=== PATIENT | male | born 1950 | race Caucasian/White ===

== ENCOUNTER 2016-08-03 14:29 | Emergency (ER) | payer MEDICAID, MEDICARE ==
[2016-08-03 14:45] VITALS: BP 159/89
--- NOTE | 2016-08-03 14:45 | EDM.PDOC ---
ED HPI Trauma - General Chief Complaint: Upper Extremity Injury/Pain Stated Complaint: LEFT THUMB INFECTION Time Seen by Provider: 08/03/16 14:40 Source: Reports: Patient, Provider History Limitations: Reports: No limitations - History of Present Illness INITIAL COMMENTS - FREE TEXT/NARRATIVE: Patient is 66-year-old male who presents to the ED complaining of pain to the tip of the left thumb. He has an abscess and has been evaluated by PCP at . First evaluated on Saturday07/31/16 by Angi Clifton and placed on bactrim. Dr. Astudillo General Surgeon evaluated it as well and did not recommend draining but oral antibiotics. Minimal Drainage was cultured and to be sensitive to levaquin. Patient was to be changed to this medication today but complained of increased pain to to the left thumb. Thus patient was instructed to come to the E.D. Angi Clifton did speak to me prior to patient being evaluated in the E.D. patient has noticed increased swelling to the thumb. Redness has subsided. Pain is worsen with palpation. At rest pain has not increased. He's noticed no streaking up his arm. Denies any fever/chills, nausea/vomiting, or any additional complaints. He is unaware how this injury occurred. Occurred Where: home Method of Injury: unknown Severity: mild Pain/Injury Location: Reports: other (left thumb) Allergies/ADRs: Allergies No Known Allergies Allergy (Verified 09/22/15 15:30) Review of Systems - Review of Systems Review Of Systems: See Below Constitutional: Denies: chills, diaphoresis, fever Musculoskeletal: Reports: other (Pain to the tip of the left thumb with increased swelling present. Pain is worse with palpation. No pain at rest.) Skin: Reports: erythema (Redness to the left thumb has resolved with no red streaking up his arm.) Neurological: Denies: Numbness, Tingling Trauma Exam - Physical Exam Exam: See Below Exam Limited By: No limitations General Appearance: Reports: alert, WD/WN, no apparent distress Ears: Reports: hearing grossly normal Nose: Reports: normal inspection Throat/Mouth: Reports: Normal voice, No airway compromise Respiratory Exam: Reports: no respiratory distress, no accessory muscle use Cardiovascular: Reports: normal peripheral pulses, regular rate, rhythm Extremities: Reports: other (left thumb: Swelling noted to the tip of the finger with abscess. Mild ecchymosis noted to the abscess borders. mild redness or increased warmth noted. Minimal pain on palpation. No red streaking up his arm. No swelling to his other fingers, hand, wrist, arm.) Neurologic: Reports: no motor/sensory deficits, alert, normal mood/affect, oriented x 3 Course - Vital Signs Last Recorded V/S: Last Vital Signs Temp 97.2 F 08/03/16 14:43 Pulse 79 08/03/16 14:43 Resp 18 08/03/16 14:43 BP 159/89 H 08/03/16 14:43 Pulse Ox 97 08/03/16 14:43 - Orders/Labs/Meds Meds: Medications Discontinued Medications Generic Name Dose Route Start Last Admin Trade Name Gabriel PRN Reason Stop Dose Admin Levofloxacin 500 mg 08/03/16 15:13 08/03/16 15:20 Levaquin PO 08/03/16 15:14 500 mg ONETIME ONE Administration Lidocaine HCl 50 ml 08/03/16 14:47 Xylocaine 1% INJECT 08/03/16 14:48 ONETIME ONE - Re-Assessments/Exams Free Text/Narrative Re-Assessment/Exam: Will drain the abscess to the left thumb to decrease in the pressure the spelled causing worsening pain with palpation. Currently, it appears abscess is improving with no increased redness or increased warmth noted. 08/03/16 14:47 08/03/16 15:14 Drained abscess with 18 g needle. Copious amounts of purulent fluid with blood drained. Pain has improved. Ordered levofloxacin 500mg PO. Patient will be discharged home with instructions. 08/03/16 15:17 reviewed x-ray of the left thumb Departure - Departure Time of Disposition: 15:14 Disposition: Home, Self-Care 01 Condition: good Clinical Impression: Abscess of left thumb Instructions: Abscess, [id number] Referrals: Angi Clifton PA-C [Primary Care Provider] - 08/06/16 Forms: ED Department Discharge Additional Instructions: Take the Levaquin as prescribed by PCP. Followup with PCP this coming Saturday. Call for appointment that morning to be seen later that day. Utilize ibuprofen and Tylenol in alternating fashion for pain. Cleanse site twice daily with soap and water pat dry. Apply heavy coat of antibiotic ointment to the affected thumb. Dressing must be utilized if draining. If you experience increased redness, increased purulent drainage, redness streaking up your arm, fever/chills, or any additional new or worsening symptoms please return back to the ED.
[2016-08-03] MEDS: Lidocaine 1% 50 ML MDV INJECT ONE ×2 (14:55→15:54)
[2016-08-03] MEDS ORDERED: Levofloxacin 250 MG Tab PO ONE (15:13)
== END 2016-08-03 15:24 | disposition home or self-care (01) ==
LOC: JD.ED 14:29
DX: L02.512 Cutaneous abscess of left hand (principal)
CPT/HCPCS: 10160; 99283; A9270; 10060

== ENCOUNTER 2016-12-13 10:16 | Emergency (ER) | payer MEDICAID, MEDICARE ==
[2016-12-13 10:38] VITALS: BP 129/89
--- NOTE | 2016-12-13 11:39 | EDM.PDOC ---
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 He states that he felt confused, although now feels back to normal. He states that he had a similar situation on his bus route last night, and needed the children to instruct him where to go. He denies having a headache, blurry vision, or nausea. He does report feeling dizzy when he stands up, for the past 3-4 months. When asked, the patient reports that today is November. He states that the POTUS is Geovany Taylor. He states that he his in the ER, at [facility]. It is noted that his oxygen saturation is 100% on room air. The patient states that he has a history of bipolar affective disorder, and that he is compliant with his psychiatric medications. They are prescribed by his PCP, Angi Clifton. - Related Data Allergies Allergy/AdvReac Type Severity Reaction Status Date / Time No Known Allergies Allergy Verified 12/13/16 10:35 Home Meds: Home Meds Benztropine [Cogentin] 1 mg PO BID 12/13/16 [History] ClonazePAM [KlonoPIN] 0.25 mg PO BID 12/13/16 [History] Meloxicam 15 mg PO DAILY 12/13/16 [History] Montelukast Sodium [Singulair] 10 mg PO DAILY 12/13/16 [History] atoMOXetine HCl [Strattera] 80 mg PO PCLUNCH 12/13/16 [History] traZODone 50 mg PO BEDTIME 12/13/16 [History] Past Medical History Psychiatric History: Reports: Bipolar Social & Family History - Tobacco Use Smoking Status *Q: Former Smoker Years of Tobacco use: 6 Packs/Tins Daily: 0.3 Month Tobacco Last Used: Quit 2008 - Caffeine Use Caffeine Use: Reports: Coffee, Energy Drinks, Soda, Tea - Alcohol Use Alcohol Use History: Yes Alcohol Use Frequency: Socially - Recreational Drug Use Recreational Drug Use: Yes Recreational Drug Type: Reports: Amphetamines (Speed), LSD (Acid), Marijuana/ Hashish, Mescaline, Psilocybin (Mushrooms) - Living Situation & Occupation Living situation: Reports: Single, Alone 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, 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) ED ROS GENERAL - Review of Systems Review Of Systems: See Below Constitutional: Reports: No Symptoms HEENT: Reports: No Symptoms Respiratory: Reports: No Symptoms Cardiovascular: Reports: No Symptoms Endocrine: Reports: No Symptoms GI/Abdominal: Reports: Diarrhea (occasional) : Reports: No Symptoms Musculoskeletal: Reports: No Symptoms Skin: Reports: No Symptoms Neurological: Reports: No Symptoms Psychiatric: Reports: No Symptoms Hematologic/Lymphatic: Reports: No Symptoms Immunologic: Reports: No Symptoms ED EXAM, GENERAL - Physical Exam Exam: See Below Exam Limited By: No Limitations General Appearance: Alert, WD/WN, No Apparent Distress Eye Exam: Bilateral Eye: Normal Inspection Ears: Normal External Exam, Hearing Grossly Normal Nose: Normal Inspection, No Blood Throat/Mouth: Normal Inspection, Normal Lips, Normal Voice, No Airway Compromise Head: Atraumatic, Normocephalic Neck: Normal Inspection, Full Range of Motion Respiratory/Chest: No Respiratory Distress, Lungs Clear, Normal Breath Sounds, No Accessory Muscle Use Cardiovascular: Normal Peripheral Pulses, Regular Rate, Rhythm, No Gallop, No JVD, No Murmur, No Rub Peripheral Pulses: 4+: Radial (L), Radial (R) GI/Abdominal: Normal Bowel Sounds, Soft, Non-Tender, No Organomegaly, No Distention, No Abnormal Bruit, No Mass (Male) Exam: Deferred Rectal (Males) Exam: Deferred Back Exam: Normal Inspection, Full Range of Motion, NT Extremities: Normal Inspection, Normal Range of Motion, No Pedal Edema, Normal Capillary Refill Neurological: Alert, Oriented, CN II-XII Intact, Normal Cognition, No Motor/ Sensory Deficits Psychiatric: Normal Affect Skin Exam: Warm, Dry, Intact, Normal Color, No Rash Lymphatic: No Adenopathy EKG INTERPRETATION EKG Date: 12/13/16 Time: 11:20 Rhythm: NSR Rate (Beats/Min): 73 [place]: LAD-Left [place] Deviation P-Wave: Present QRS: Normal ST-T: Normal QT: Normal Comparison: NA - No Prior EKG Course - Vital Signs Last Recorded V/S: Last Vital Signs Temp 36.3 C 12/13/16 10:37 Pulse 80 12/13/16 10:37 Resp 18 12/13/16 10:37 BP 129/89 12/13/16 10:37 Pulse Ox 100 12/13/16 10:37 Orthostatic Blood Pressure [ 126/88 Standing] Orthostatic Blood Pressure [ 134/83 Sitting] Orthostatic Blood Pressure [ 135/88 Supine] - Orders/Labs/Meds Orders: Active Orders 24 hr Category Date Time Status EKG Documentation Completion [RC] STAT Care 12/13/16 10:49 Active Orthostatic Vital Signs [RC] STAT Care 12/13/16 10:48 Active Labs: Laboratory Tests 12/13/16 12/13/16 12/13/16 Range/Units 11:00 11:00 11:15 WBC 6.81 (4.23-9.07) K/mm3 RBC 4.33 L (4.63-6.08) M/mm3 Hgb 14.3 (13.7-17.5) gm/L Hct 41.5 (40.1-51.0) % MCV 95.8 H (79.0-92.2) fl MCH 33.0 H (25.7-32.2) pg MCHC 34.5 (32.2-35.5) g/dl RDW Std Deviation 42.2 (35.1-43.9) fL Plt Count 215 (163-337) K/mm3 MPV 9.1 L (9.4-12.3) fl Neutrophils % (Manual) 64 H (40-60) % Band Neutrophils % 0 (0-10) % Lymphocytes % (Manual) 10 L (20-40) % Atypical Lymphs % 15 % Monocytes % (Manual) 8 (2-10) % Eosinophils % (Manual) 3 (0.8-7.0) % Basophils % (Manual) 0 L (0.2-1.2) Platelet Estimate Adequate RBC Morph Comment Normal PT (8.0-13.0) SECONDS INR APTT (22-36) SECONDS D-Dimer, Quantitative (0.19-0.59) mg/L Sodium (136-145) mEq/L Potassium (3.5-5.1) mEq/L Chloride (98-107) mEq/L Carbon Dioxide (21-32) mEq/L Anion Gap (5-15) BUN (7-18) mg/dL Creatinine (0.7-1.3) mg/dL Est Cr Clr Drug Dosing Estimated GFR (MDRD) (>60) mL/min BUN/Creatinine Ratio (14-18) Glucose (80-115) mg/dL Calcium (8.5-10.1) mg/dL Magnesium (1.8-2.4) mg/dl Total Bilirubin (0.2-1.0) mg/dL AST (15-37) U/L ALT (16-63) U/L Alkaline Phosphatase (46-116) U/L Troponin I (0.00-0.056) ng/mL Total Protein (6.4-8.2) g/dl Albumin (3.4-5.0) g/dl Globulin gm/dL Albumin/Globulin Ratio (1-2) TSH 3rd Generation (0.358-3.74) uIU/mL Urine Color Yellow (Yellow) Urine Appearance Clear (Clear) Urine pH 7.0 (5.0-8.0) Ur Specific [place] 1.020 (1.005-1.030) Urine Protein Negative (Negative) Urine Glucose (UA) Negative (Negative) Urine Ketones Negative (Negative) Urine Occult Blood Negative (Negative) Urine Nitrite Negative (Negative) Urine Bilirubin Negative (Negative) Urine Urobilinogen 0.2 (0.2-1.0) Ur Leukocyte Esterase Negative (Negative) Urine RBC Not seen (0-5) /hpf Urine WBC Not seen (0-5) /hpf Ur Epithelial Cells 0-5 (0-5) /hpf Urine Bacteria Not seen (FEW) /hpf Urine Mucus Not seen (FEW) /hpf Urine Opiates Screen Negative (NEGATIVE) Ur Buprenorphine Scrn Negative (NEGATIVE) Ur Oxycodone Screen Negative (NEGATIVE) Urine Methadone Screen Negative (NEGATIVE) Ur Propoxyphene Screen Negative (NEGATIVE) Ur Barbiturates Screen Negative (NEGATIVE) Ur Tricyclics Screen Negative (NEGATIVE) Ur Phencyclidine Scrn Negative (NEGATIVE) Ur Amphetamine Screen Negative (NEGATIVE) U Methamphetamines Scrn Negative (NEGATIVE) U Benzodiazepines Scrn Negative (NEGATIVE) U Cocaine Metab Screen Negative (NEGATIVE) U Marijuana (THC) Screen Negative (NEGATIVE) Ethyl Alcohol (0.00) gm% 12/13/16 12/13/16 Range/Units 11:15 11:15 WBC (4.23-9.07) K/mm3 RBC (4.63-6.08) M/mm3 Hgb (13.7-17.5) gm/L Hct (40.1-51.0) % MCV (79.0-92.2) fl MCH (25.7-32.2) pg MCHC (32.2-35.5) g/dl RDW Std Deviation (35.1-43.9) fL Plt Count (163-337) K/mm3 MPV (9.4-12.3) fl Neutrophils % (Manual) (40-60) % Band Neutrophils % (0-10) % Lymphocytes % (Manual) (20-40) % Atypical Lymphs % % Monocytes % (Manual) (2-10) % Eosinophils % (Manual) (0.8-7.0) % Basophils % (Manual) (0.2-1.2) Platelet Estimate RBC Morph Comment PT 10.7 (8.0-13.0) SECONDS INR 0.98 APTT 27 (22-36) SECONDS D-Dimer, Quantitative 0.24 (0.19-0.59) mg/L Sodium 141 (136-145) mEq/L Potassium 4.4 (3.5-5.1) mEq/L Chloride 106 (98-107) mEq/L Carbon Dioxide 31 (21-32) mEq/L Anion Gap 8.4 (5-15) BUN 18 (7-18) mg/dL Creatinine 1.3 (0.7-1.3) mg/dL Est Cr Clr Drug Dosing TNP Estimated GFR (MDRD) 55 (>60) mL/min BUN/Creatinine Ratio 13.8 L (14-18) Glucose 81 (80-115) mg/dL Calcium 9.2 (8.5-10.1) mg/dL Magnesium 2.3 (1.8-2.4) mg/dl Total Bilirubin 0.6 (0.2-1.0) mg/dL AST 21 (15-37) U/L ALT 19 (16-63) U/L Alkaline Phosphatase 70 (46-116) U/L Troponin I < 0.017 (0.00-0.056) ng/mL Total Protein 6.8 (6.4-8.2) g/dl Albumin 4.0 (3.4-5.0) g/dl Globulin 2.8 gm/dL Albumin/Globulin Ratio 1.4 (1-2) TSH 3rd Generation 1.954 (0.358-3.74) uIU/mL Urine Color (Yellow) Urine Appearance (Clear) Urine pH (5.0-8.0) Ur Specific [place] (1.005-1.030) Urine Protein (Negative) Urine Glucose (UA) (Negative) Urine Ketones (Negative) Urine Occult Blood (Negative) Urine Nitrite (Negative) Urine Bilirubin (Negative) Urine Urobilinogen (0.2-1.0) Ur Leukocyte Esterase (Negative) Urine RBC (0-5) /hpf Urine WBC (0-5) /hpf Ur Epithelial Cells (0-5) /hpf Urine Bacteria (FEW) /hpf Urine Mucus (FEW) /hpf Urine Opiates Screen (NEGATIVE) Ur Buprenorphine Scrn (NEGATIVE) Ur Oxycodone Screen (NEGATIVE) Urine Methadone Screen (NEGATIVE) Ur Propoxyphene Screen (NEGATIVE) Ur Barbiturates Screen (NEGATIVE) Ur Tricyclics Screen (NEGATIVE) Ur Phencyclidine Scrn (NEGATIVE) Ur Amphetamine Screen (NEGATIVE) U Methamphetamines Scrn (NEGATIVE) U Benzodiazepines Scrn (NEGATIVE) U Cocaine Metab Screen (NEGATIVE) U Marijuana (THC) Screen (NEGATIVE) Ethyl Alcohol 0.00 (0.00) gm% - Re-Assessments/Exams Free Text/Narrative Re-Assessment/Exam: 12/13/16 11:18 Two-view chest radiograph appears to be grossly normal. Cardiac silhouette is within normal limits. No pulmonary vascular congestion. No pleural effusions. No focal infiltrate. No pneumothorax. Formal read per the Radiologist pending. 12/13/16 11:39 The patient is not orthostatic. 12/13/16 13:23 CT of the head without contrast is read by Dr. Gudino as: 1. Minimal sinus findings which are felt to be incidental. 2. Nothing acute is appreciated on noncontrast head CT study. 12/13/16 13:25 Today's workup is unremarkable, and does not explain his symptoms. I do not find any metabolic causes for his confusion. I suspect that some of the patient' s confusion reflects his baseline, however, his symptoms may be related to his psychiatric medications. I believe he may safely be discharged home, with the recommendation to follow-up with the prescriber of his psychiatric medications, Angi Clifton. Departure - Departure Time of Disposition: 13:29 Disposition: Home, Self-Care 01 Condition: Good Clinical Impression: Drug-induced confusion - Discharge Information Referrals: Angi Clifton PA-C [Primary Care Provider] - Forms: ED Department Discharge Additional Instructions: You were seen in the emergency room for confusion. Workup in the ER included blood work, a urinalysis, a urine drug screen, an ECG , a chest x-ray, a CT scan of your head, and positional blood pressure checks. Your entire workup was unremarkable, and does not explain the cause of your confusion. Your confusion is MOST LIKELY related to your psychiatric medications. We recommend you follow-up with your PCP, Angi Clifton, for medication adjustment. We do not recommend you return to work until your symptoms have resolved. If any other problems, please do not hesitate to return to the ER. - My Orders Last 24 Hours: My Active Orders 12/13/16 10:48 Orthostatic Vital Signs [RC] STAT 12/13/16 10:49 EKG Documentation Completion [RC] STAT - Assessment/Plan Last 24 Hours: My Active Orders 12/13/16 10:48 Orthostatic Vital Signs [RC] STAT 12/13/16 10:49 EKG Documentation Completion [RC] STAT
--- NOTE | 2016-12-13 13:05 | CT ---
Head CT Technique: Multiple axial sections through the brain were obtained. Intravenous contrast was not utilized. Comparison: Previous head CT exam of 01/22/12. Findings: Ventricles along with basal cisterns and sulci over the convexities are within normal limits for the patient's age. No abnormal parenchymal densities are seen. No evidence of intracranial hemorrhage. Small basal ganglia calcification is noted on the right side. No midline shift or mass effect is seen. Bone window settings were reviewed which shows slight mucosal thickening within the frontal and ethmoid sinuses. No acute calvarial abnormality is seen. Impression: 1. Minimal sinus findings which are felt to be incidental. 2. Nothing acute is appreciated on noncontrast head CT study. Diagnostic code #2
--- NOTE | 2016-12-13 14:48 | CR ---
Chest: Two views of the chest were obtained. Comparison: Previous chest x-ray of 09/22/15. Heart size and mediastinum are within normal limits. Lungs are clear. Bony structures show mild degenerative change within the mid to lower thoracic spine. Impression: 1. Incidental findings. Nothing acute is appreciated on two-view chest x-ray. Diagnostic code #2
== END 2016-12-13 13:40 | disposition home or self-care (01) ==
LOC: JD.ED 10:16
DX: F19.921 Other psychoactive substance use, unspecified with intoxication with delirium (principal); F31.9 Bipolar disorder, unspecified; Z79.899 Other long term (current) drug therapy; Z87.891 Personal history of nicotine dependence
CPT/HCPCS: 36415; 70450; 71020; 80053; 80306; 81001; 83735; 84443; 84484; 85025; 85379; 85610; 85730; 93005; 99285; G0480; 99284

== ENCOUNTER 2020-12-22 13:45 | Emergency (ER) | payer OTHER, MEDICARE, MEDICAID ==
[2020-12-22 14:15] VITALS: BP 113/75; PULSE 102
--- NOTE | 2020-12-22 14:18 | EDM.PDOC ---
ED HPI GENERAL MEDICAL PROBLEM - General Chief Complaint: General Stated Complaint: [facility] Time Seen by Provider: 12/22/20 14:18 - History of Present Illness INITIAL COMMENTS - FREE TEXT/NARRATIVE: 70-year-old male sent in by the longterm with suspected hypoxia he is Covid positive. Patient was tested for Covid found to be positive. They noticed on routine monitoring that his O2 saturations would drop into the upper 80s. [facility] for further evaluation. At this time the patient will not answer any questions. According to the patient's sister who is the power of compliance attorney the patient has spells like this where he just will not answer questions. The patient does not appear to have any weakness deficits. While here in the emergency room the patient saturation has remained in the low 90s. - Related Data Allergies Allergy/AdvReac Type Severity Reaction Status Date / Time No Known Allergies Allergy Verified 12/22/20 14:15 Home Meds: Home Meds ClonazePAM [KlonoPIN] 0.25 mg PO BID 12/13/16 [History] Meloxicam 15 mg PO DAILY 12/13/16 [History] Acetaminophen 650 mg PO ASDIRECTED PRN 12/22/20 [History] Chlorthalidone 25 mg PO DAILY 12/22/20 [History] Cholecalciferol (Vitamin D3) [Vitamin D3] 25 mcg PO DAILY 12/22/20 [History] Clotrimazole [Clotrimazole 1%] 1 applic TOP BID 12/22/20 [History] Docusate Sodium 100 mg PO BID 12/22/20 [History] Escitalopram [Lexapro] 20 mg PO DAILY 12/22/20 [History] Magnesium Hydroxide [Milk of Magnesia] 2,400 mg PO ASDIRECTED PRN 12/22/20 [History] Memantine HCl [Namenda] 10 mg PO BID 12/22/20 [History] Omeprazole 20 mg PO ACBREAKFAST 12/22/20 [History] buPROPion [buPROPion XL] 150 mg PO DAILY 12/22/20 [History] polyethylene glycoL 3350 [Miralax] 17 gm PO DAILY 12/22/20 [History] risperiDONE [RisperiDAL] 0.25 mg PO DAILY 12/22/20 [History] risperiDONE [RisperiDAL] 1 mg PO BEDTIME 12/22/20 [History] Past Medical History Psychiatric History: Reports: Bipolar Other Psychiatric History: manic depression Social & Family History - Caffeine Use Caffeine Use: Reports: Coffee, Energy Drinks, Soda, Tea - Living Situation & Occupation Living situation: Reports: Single, Alone 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 Exam Limited By: Other (Patient will not answer questions, at times this is a normal state for him.) General Appearance: Alert, No Apparent Distress Eye Exam: Bilateral Eye: Normal Inspection, PERRL Ears: Normal External Exam, Other (Both canals obstructed by cerumen) Nose: Normal Inspection, Normal Mucosa Throat/Mouth: Other (Not fully visualized mucous membranes appear moist the patient struggled with trying to open his mouth) Head: Atraumatic, Normocephalic Neck: Normal Inspection, Supple, Non-Tender, Full Range of Motion. No: Lymphadenopathy (L), Lymphadenopathy (R) Respiratory/Chest: No Respiratory Distress, Lungs Clear, Normal Breath Sounds Cardiovascular: Regular Rate, Rhythm, No Edema, No Murmur GI/Abdominal: Normal Bowel Sounds, Soft, Non-Tender Back Exam: Normal Inspection. No: CVA Tenderness (L), CVA Tenderness (R) Extremities: Normal Inspection, No Pedal Edema #1 Interpretation EKG Date: 12/22/20 Rhythm: Other (Sinus tachycardia) Rate (Beats/Min): 101 Hiram: LAD-Left Hiram Deviation P-Wave: Present QRS: Other (Intraventricular conduction delay) ST-T: Normal QT: Normal Comparison: No Change (No significant change from December 13, 2016) EKG Interpretation Comments: Abnormal EKG Course - Vital Signs Last Recorded V/S: Last Vital Signs Temp 36.8 C 12/22/20 14:10 Pulse 102 H 12/22/20 14:10 Resp 18 12/22/20 14:10 BP 113/75 12/22/20 14:10 Pulse Ox 92 L 12/22/20 14:10 - Orders/Labs/Meds Orders: Active Orders 24 hr Category Date Time Status Vital Signs [RC] Q15M Care 12/22/20 16:24 Active EPINEPHrine [Adrenalin] Med 12/22/20 16:24 Active 0.3 mg IM ONETIME PRN Famotidine [Pepcid] Med 12/22/20 16:24 Active 20 mg IVPUSH ONETIME PRN Sodium Chloride 0.9% [Saline Flush] Med 12/22/20 16:30 Active 30 ml FLUSH ASDIRECTED diphenhydrAMINE [Benadryl] Med 12/22/20 16:24 Active 50 mg IVPUSH ONETIME PRN methylPREDNISolone Sod Succ [Solu-MEDROL] Med 12/22/20 16:24 Active 125 mg IVPUSH ONETIME PRN Medication Orders Diphenhydramine HCl (Diphenhydramine 50 Mg/Ml Sdv) 50 mg IVPUSH ONETIME PRN PRN Reason: hypersensitivity reaction Epinephrine HCl (Epinephrine 1 Mg/Ml Sdv) 0.3 mg IM ONETIME PRN PRN Reason: hypersensitivity reaction Famotidine (Famotidine 20 Mg/2 Ml Sdv) 20 mg IVPUSH ONETIME PRN PRN Reason: hypersensitivity reaction Methylprednisolone Sodium Succinate (Methylprednisolone Sodium Succinate 125 Mg/2 Ml Sdv) 125 mg IVPUSH ONETIME PRN PRN Reason: hypersensitivity reaction Sodium Chloride (Sodium Chloride 0.9% 10 Ml Syringe) 30 ml FLUSH ASDIRECTED [facility] Labs: Laboratory Tests 12/22/20 12/22/20 12/22/20 Range/Units 15:08 15:08 15:08 WBC 6.05 (4.23-9.07) K/mm3 RBC 4.35 L (4.63-6.08) M/mm3 Hgb 14.3 D (13.7-17.5) gm/dl Hct 41.7 (40.1-51.0) % MCV 95.9 H (79.0-92.2) fl MCH 32.9 H (25.7-32.2) pg MCHC 34.3 (32.2-35.5) g/dl RDW Std Deviation 43.7 (35.1-43.9) fL Plt Count 184 (163-337) K/mm3 MPV 10.0 (9.4-12.3) fl Neutrophils % (Manual) 84 H (40-60) % Band Neutrophils % 0 (0-10) % Lymphocytes % (Manual) 9 L (20-40) % Atypical Lymphs % 0 % Monocytes % (Manual) 6 (2-10) % Eosinophils % (Manual) 0 L (0.8-7.0) % Basophils % (Manual) 1 (0.2-1.2) Platelet Estimate Adequate RBC Morph Comment Normal D-Dimer, Quantitative 0.83 H (0.19-0.50) mg/L Sodium 140 (136-145) mEq/L Potassium 3.0 L (3.5-5.1) mEq/L Chloride 103 (98-107) mEq/L Carbon Dioxide 30 (21-32) mEq/L Anion Gap 10.0 (5-15) BUN 19 H (7-18) mg/dL Creatinine 1.3 (0.7-1.3) mg/dL Est Cr Clr Drug Dosing 50.14 mL/min Estimated GFR (MDRD) 55 (>60) mL/min BUN/Creatinine Ratio 14.6 (14-18) Glucose 103 H (70-99) mg/dL Calcium 8.9 (8.5-10.1) mg/dL Total Bilirubin 0.4 (0.2-1.0) mg/dL AST 23 (15-37) U/L ALT 22 (16-63) U/L Alkaline Phosphatase 66 (46-116) U/L Lactate Dehydrogenase 189 (85-227) U/L Troponin I < 0.017 (0.00-0.056) ng/mL C-Reactive Protein 1.8 H* (<1.0) mg/dL Total Protein 6.7 (6.4-8.2) g/dl Albumin 3.5 (3.4-5.0) g/dl Globulin 3.2 gm/dL Albumin/Globulin Ratio 1.1 (1-2) Meds: Medications Generic Name Dose Route Start Last Admin Trade Name Freq PRN Reason Stop Dose Admin Diphenhydramine HCl 50 mg 12/22/20 16:24 Diphenhydramine 50 Mg/Ml Sdv IVPUSH ONETIME PRN hypersensitivity reaction Epinephrine HCl 0.3 mg 12/22/20 16:24 Epinephrine 1 Mg/Ml Sdv IM ONETIME PRN hypersensitivity reaction Famotidine 20 mg 12/22/20 16:24 Famotidine 20 Mg/2 Ml Sdv IVPUSH ONETIME PRN hypersensitivity reaction Methylprednisolone Sodium Succinate 125 mg 12/22/20 16:24 Methylprednisolone Sodium Succinate 125 Mg/2 Ml Sdv IVPUSH ONETIME PRN hypersensitivity reaction Sodium Chloride 30 ml 12/22/20 16:30 Sodium Chloride 0.9% 10 Ml Syringe FLUSH ASDIRECTED GIFTY Discontinued Medications Generic Name Dose Route Start Last Admin Trade Name Gabriel PRN Reason Stop Dose Admin CASIRIVIMAB/IMDEVIMAB 10 ml/ 110 mls @ 220 mls/hr 12/22/20 16:24 12/22/20 16:43 Sodium Chloride IV 12/22/20 16:53 220 mls/hr ONETIME ONE Administration - Re-Assessments/Exams Free Text/Narrative Re-Assessment/Exam: 12/22/20 16:05 The patient has no acute changes in the chest x-ray. C-reactive protein is slightly elevated at 1.8 D-dimer is elevated 0.83 potassium is 3.0 I discussed the situation with the patient's POA, his sister over the phone. I provided information about REGEN-COV treatment. I discussed the Patient and Caregiver EUA REGEN-COV Fact Sheet. I stated the drug has been approved by an emergency use authorization (EUA} process and has not fully been FDA reviewed or approved. The patient meets the EUA requirements. I discussed there are other potential treatment options that are currently not FDA approved to treat COVID 19. Offered opportunity to ask questions and all questions were answered. The POA voiced understanding and agreed to proceed with treatment. 12/22/20 18:36 Tolerated the Regeneron without difficulty will be discharged back to the longterm. He has maintained saturations above 90% while here in the emergency department Without the aid of supplemental oxygen Departure - Departure Time of Disposition: 18:40 Disposition: DC/Tfer to [facility] Clinical Impression: COVID-19 - Discharge Information Referrals: Todd Perdue MD [Primary Care Provider] - Forms: ED Department Discharge Additional Instructions: Return to the emergency room with any questions problems or worsening symptoms. Sepsis Event Note (ED) - Evaluation Sepsis Screening Result: No Definite Risk - Focused Exam Vital Signs: Vital Signs Temp Pulse Resp BP Pulse Ox 12/22/20 14:10 36.8 C 102 H 18 113/75 92 L - My Orders Last 24 Hours: My Active Orders 12/22/20 16:24 Vital Signs [RC] Q15M EPINEPHrine [Adrenalin] 0.3 mg IM ONETIME PRN Famotidine [Pepcid] 20 mg IVPUSH ONETIME PRN diphenhydrAMINE [Benadryl] 50 mg IVPUSH ONETIME PRN methylPREDNISolone Sod Succ [Solu-MEDROL] 125 mg IVPUSH ONETIME PRN 12/22/20 16:30 Sodium Chloride 0.9% [Saline Flush] 30 ml FLUSH ASDIRECTED - Assessment/Plan Last 24 Hours: My Active Orders 12/22/20 16:24 Vital Signs [RC] Q15M EPINEPHrine [Adrenalin] 0.3 mg IM ONETIME PRN Famotidine [Pepcid] 20 mg IVPUSH ONETIME PRN diphenhydrAMINE [Benadryl] 50 mg IVPUSH ONETIME PRN methylPREDNISolone Sod Succ [Solu-MEDROL] 125 mg IVPUSH ONETIME PRN 12/22/20 16:30 Sodium Chloride 0.9% [Saline Flush] 30 ml FLUSH ASDIRECTED
--- NOTE | 2020-12-22 15:15 | CT ---
Head CT Technique: Multiple axial sections through the brain were obtained. Intravenous contrast was not utilized. Study has been performed without intravenous contrast. Comparison: Prior head CT study of 12/13/16 and MRI brain of 05/22/17. Findings: Ventricles are somewhat dilated and more prominent than on previous exam. Sulci over the convexities are also mildly prominent. No abnormal parenchymal densities are seen. No evidence of intracranial hemorrhage is seen. No midline shift or mass-effect is appreciated. Bone window settings were reviewed. Mild scattered areas of mucosal thickening are seen within the ethmoid sinuses and sphenoid sinus. Mastoid sinuses are clear. No acute calvarial abnormality is appreciated. Impression: 1. Mild increasing atrophy from previous exams. 2. Mild sinus findings which are most likely chronic. 3. No acute intracranial abnormality is appreciated. Diagnostic code #2
[2020-12-22] MEDS ORDERED: Famotidine 20 MG/2 ML SDV IVPUSH ONE (15:45)
--- NOTE | 2020-12-22 15:49 | CR ---
Chest: Portable view of the chest was obtained. Comparison: Prior chest x-ray at 12/13/16. Heart size and mediastinum are within normal limits. Slight scarring is seen above the left hemidiaphragm. Lungs otherwise are clear no acute parenchymal change. Mild degenerative change is seen within the spine with slight scoliosis. Impression: 1. Findings as noted above. 2. Nothing acute is appreciated. Diagnostic code #2
[2020-12-22] MEDS ORDERED: Famotidine 20 MG/2 ML SDV IVPUSH PRN (16:24)
[2020-12-22] MEDS ORDERED: EPINEPHrine 1 MG/ML SDV IM PRN (16:24)
[2020-12-22] MEDS ORDERED: methylPREDNISolone Sodium Succinate 125 MG/2 ML SDV IVPUSH PRN (16:24)
[2020-12-22] MEDS ORDERED: diphenhydrAMINE 50 MG/ML SDV IVPUSH PRN (16:24)
[2020-12-22] MEDS ORDERED: Sodium Chloride 0.9% 10 ML Syringe FLUSH SCH (16:30)
[2020-12-22] MEDS ORDERED: Potassium Chloride 20 MEQ Tab.ER PO ONE (18:38)
== END 2020-12-22 19:39 ==
LOC: JD.ED 13:45
DX: U07.1 COVID-19 (principal); R94.31 Abnormal electrocardiogram [ECG] [EKG]
CPT/HCPCS: 36415; 70450; 71045; 80053; 83615; 84484; 85007; 85027; 85379; 86140; 93005; 99285; M0243; Q0243; 93010; 99284

== ENCOUNTER 2021-01-01 22:58 | Inpatient (IN) | payer OTHER, MEDICARE, MEDICAID ==
[2021-01-01] MEDS ORDERED: Sodium Chloride 0.9% 10 ML Syringe FLUSH PRN (23:12)
[2021-01-01] MEDS ORDERED: Dexamethasone 4 MG/ML SDV IVPUSH ONE (23:13)
[2021-01-01] MEDS ORDERED: Albuterol/Ipratropium 3.0-0.5 MG/3 ML Neb Soln NEB ONE (23:14)
[2021-01-01] MEDS ORDERED: Sodium Chloride 0.9% 1,000 ML IV SCH (23:15)
[2021-01-02] MEDS ORDERED: Sodium Chloride 0.9% 1,000 ML IV ONE ×2 (00:03→01:11)
[2021-01-02] MEDS ORDERED: cefTRIAXone 2 GM in Sodium Chloride 0.9% 100 ML IV ONE (00:57)
[2021-01-02] MEDS ORDERED: Lactated Ringers 1,000 ML IV ONE (01:11)
--- NOTE | 2021-01-02 02:33 | EDM.PDOC ---
ED HPI GENERAL MEDICAL PROBLEM - General Chief Complaint: Respiratory Problem Stated Complaint: [facility] Time Seen by Provider: 01/01/21 23:01 Source of Information: Reports: EMS, Family, Long-Term Records History Limitations: Reports: Altered Mental Status - History of Present Illness INITIAL COMMENTS - FREE TEXT/NARRATIVE: The patient presents by [facility] for [facility]. The patient is a resident there because of dementia. He got COVID 19 ten days ago. He was seen here and given regeneron. He was doing good for a few days and he started to decline. He was not talking and he had trouble breathing. He also was breathing fast. He is minimally responsive at baseline but now he will not respond to verbal stimuli. He will localize to pain. He has been diaphoretic. His oxygen saturations have been low at 88% and he is breathing fast. He is normally on 2L by [place] and they had to go up to 5L by [place]. He is a full code. Onset: Gradual Duration: Day(s): - Related Data Allergies Allergy/AdvReac Type Severity Reaction Status Date / Time No Known Allergies Allergy Verified 01/01/21 23:14 Home Meds: Home Meds ClonazePAM [KlonoPIN] 0.25 mg PO BID 12/13/16 [History] Meloxicam 15 mg PO DAILY 12/13/16 [History] Acetaminophen 650 mg PO ASDIRECTED PRN 12/22/20 [History] Chlorthalidone 25 mg PO DAILY 12/22/20 [History] Cholecalciferol (Vitamin D3) [Vitamin D3] 25 mcg PO DAILY 12/22/20 [History] Clotrimazole [Clotrimazole 1%] 1 applic TOP BID 12/22/20 [History] Docusate Sodium 100 mg PO BID 12/22/20 [History] Escitalopram [Lexapro] 20 mg PO DAILY 12/22/20 [History] Magnesium Hydroxide [Milk of Magnesia] 2,400 mg PO ASDIRECTED PRN 12/22/20 [History] Memantine HCl [Namenda] 10 mg PO BID 12/22/20 [History] Omeprazole 20 mg PO ACBREAKFAST 12/22/20 [History] buPROPion [buPROPion XL] 150 mg PO DAILY 12/22/20 [History] polyethylene glycoL 3350 [Miralax] 17 gm PO DAILY 12/22/20 [History] risperiDONE [RisperiDAL] 0.25 mg PO DAILY 12/22/20 [History] risperiDONE [RisperiDAL] 1 mg PO BEDTIME 12/22/20 [History] Past Medical History Cardiovascular History: Reports: PVD Gastrointestinal History: Reports: GERD Genitourinary History: Reports: Chronic Renal Insuffiency, Urinary Incontinence Neurological History: Reports: Alzheimers Disease Psychiatric History: Reports: Bipolar Other Psychiatric History: manic depression - Infectious Disease History Infectious Disease History: Reports: Novel Coronavirus Social & Family History - Tobacco Use Tobacco Use Status *Q: Unknown Ever Used Tobacco Second Hand Smoke Exposure: No - Caffeine Use Caffeine Use: Reports: Coffee, Energy Drinks, Soda, Tea - Recreational Drug Use Recreational Drug Use: No - Living Situation & Occupation Living situation: Reports: Single, Alone 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, 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) ED ROS GENERAL - Review of Systems Review Of Systems: Unable To Obtain Reason Not Obtained: Patient not responding ED EXAM, GENERAL - Physical Exam Exam: See Below Exam Limited By: Altered Mental Status General Appearance: Other (patient would localize to pain) Ears: Normal External Exam Nose: Normal Inspection Head: Atraumatic, Normocephalic Neck: Normal Inspection Respiratory/Chest: No Respiratory Distress, Lungs Clear, Normal Breath Sounds Cardiovascular: No Edema, No Murmur, Tachycardia GI/Abdominal: Soft, Non-Tender, No Organomegaly, No Mass Back Exam: Normal Inspection Extremities: Normal Inspection Course - Vital Signs Last Recorded V/S: Last Vital Signs Temp 99 F 01/01/21 23:09 Pulse 114 H 01/02/21 04:30 Resp 32 H 01/02/21 04:30 BP 128/74 01/02/21 04:30 Pulse Ox 95 01/02/21 04:30 - Orders/Labs/Meds Orders: Active Orders 24 hr Category Date Time Status Cardiac Monitoring [RC] . DIRECTED Care 01/01/21 23:12 Active Oxygen Therapy [RC] PRN Care 01/01/21 23:12 Active Peripheral IV Care [RC] . DIRECTED Care 01/01/21 23:12 Active RT Aerosol Therapy [RC] ASDIRECTED Care 01/01/21 23:14 Active Chest 1V Frontal [CR] Stat Exams 01/01/21 23:13 Taken BLOOD CULTURE [MREF] Stat Lab 01/01/21 23:25 Received BLOOD CULTURE [MREF] Stat Lab 01/01/21 23:40 Received CULTURE URINE [MREF] Stat Lab 01/02/21 00:15 Received Sodium Chloride 0.9% [Normal Saline] 1,000 ml Med 01/01/21 23:15 Active IV ASDIRECTED Sodium Chloride 0.9% [Saline Flush] Med 01/01/21 23:12 Active 10 ml FLUSH ASDIRECTED PRN Blood Culture x2 Reflex Set [OM.PC] Stat Oth 01/01/21 23:13 Ordered Peripheral IV Insertion Adult [OM.PC] Stat Ot 01/01/21 23:12 Ordered Medication Orders Sodium Chloride (Normal Saline) 1,000 mls @ 125 mls/hr IV ASDIRECTED GIFTY Last Admin: 01/01/21 23:56 Dose: 125 mls/hr Documented by: KEISHA Sodium Chloride (Sodium Chloride 0.9% 10 Ml Syringe) 10 ml FLUSH ASDIRECTED PRN PRN Reason: Keep Vein Open Last Admin: 01/01/21 23:57 Dose: 10 ml Documented by: KEISHA Labs: Laboratory Tests 01/01/21 01/01/21 01/01/21 Range/Units 23:00 23:00 23:00 WBC 33.56 H (4.23-9.07) K/mm3 RBC 5.37 (4.63-6.08) M/mm3 Hgb 17.4 D (13.7-17.5) gm/dl Hct 54.3 H (40.1-51.0) % MCV 101.1 H D (79.0-92.2) fl MCH 32.4 H (25.7-32.2) pg MCHC 32.0 L (32.2-35.5) g/dl RDW Std Deviation 50.9 H (35.1-43.9) fL Plt Count 449 H D (163-337) K/mm3 MPV 11.3 (9.4-12.3) fl Neut % (Auto) 84.3 H (34.0-67.9) % Lymph % (Auto) 7.4 L (21.8-53.1) % [place] % (Auto) 7.5 (5.3-12.2) % Eos % (Auto) 0 L (0.8-7.0) Baso % (Auto) 0.1 (0.1-1.2) % Neut # (Auto) 28.30 H (1.78-5.38) K/mm3 Lymph # (Auto) 2.48 (1.32-3.57) K/mm3 [place] # (Auto) 2.52 H (0.30-0.82) K/mm3 Eos # (Auto) 0.00 L (0.04-0.54) K/mm3 Baso # (Auto) 0.04 (0.01-0.08) K/mm3 Manual Slide Review Abnormal smear D-Dimer, Quantitative 1.83 H (0.19-0.50) mg/L Sodium 150 H D (136-145) mEq/L Potassium 3.1 L (3.5-5.1) mEq/L Chloride 108 H (98-107) mEq/L Carbon Dioxide 34 H (21-32) mEq/L Anion Gap 11.1 (5-15) BUN 43 H (7-18) mg/dL Creatinine 2.0 H (0.7-1.3) mg/dL Est Cr Clr Drug Dosing 32.59 mL/min Estimated GFR (MDRD) 33 (>60) mL/min BUN/Creatinine Ratio 21.5 H (14-18) Glucose 180 H (70-99) mg/dL Lactic Acid (0.4-2.0) mmol/L Calcium 9.5 (8.5-10.1) mg/dL Total Bilirubin 1.1 H (0.2-1.0) mg/dL AST 29 (15-37) U/L ALT 41 (16-63) U/L Alkaline Phosphatase 76 (46-116) U/L C-Reactive Protein 5.5 H* (<1.0) mg/dL Total Protein 8.0 (6.4-8.2) g/dl Albumin 3.5 (3.4-5.0) g/dl Globulin 4.5 gm/dL Albumin/Globulin Ratio 0.8 L (1-2) Urine Color (Yellow) Urine Appearance (Clear) Urine pH (5.0-8.0) Ur Specific [place] (1.005-1.030) Urine Protein (Negative) Urine Glucose (UA) (Negative) Urine Ketones (Negative) Urine Occult Blood (Negative) Urine Nitrite (Negative) Urine Bilirubin (Negative) Urine Urobilinogen (0.2-1.0) Ur Leukocyte Esterase (Negative) U Hyaline Cast (Auto) (0-5) /lpf Urine RBC (0-5) /hpf Urine WBC (0-5) /hpf Ur Epithelial Cells (0-5) /hpf Urine Bacteria (FEW) /hpf Coarse Granular Casts (0-5) /hpf Urine Mucus (FEW) /hpf 01/01/21 01/02/21 01/02/21 Range/Units 23:00 00:15 02:51 WBC (4.23-9.07) K/mm3 RBC (4.63-6.08) M/mm3 Hgb (13.7-17.5) gm/dl Hct (40.1-51.0) % MCV (79.0-92.2) fl MCH (25.7-32.2) pg MCHC (32.2-35.5) g/dl RDW Std Deviation (35.1-43.9) fL Plt Count (163-337) K/mm3 MPV (9.4-12.3) fl Neut % (Auto) (34.0-67.9) % Lymph % (Auto) (21.8-53.1) % [place] % (Auto) (5.3-12.2) % Eos % (Auto) (0.8-7.0) Baso % (Auto) (0.1-1.2) % Neut # (Auto) (1.78-5.38) K/mm3 Lymph # (Auto) (1.32-3.57) K/mm3 [place] # (Auto) (0.30-0.82) K/mm3 Eos # (Auto) (0.04-0.54) K/mm3 Baso # (Auto) (0.01-0.08) K/mm3 Manual Slide Review D-Dimer, Quantitative (0.19-0.50) mg/L Sodium (136-145) mEq/L Potassium (3.5-5.1) mEq/L Chloride (98-107) mEq/L Carbon Dioxide (21-32) mEq/L Anion Gap (5-15) BUN (7-18) mg/dL Creatinine (0.7-1.3) mg/dL Est Cr Clr Drug Dosing mL/min Estimated GFR (MDRD) (>60) mL/min BUN/Creatinine Ratio (14-18) Glucose (70-99) mg/dL Lactic Acid 2.4 H* 1.1 (0.4-2.0) mmol/L Calcium (8.5-10.1) mg/dL Total Bilirubin (0.2-1.0) mg/dL AST (15-37) U/L ALT (16-63) U/L Alkaline Phosphatase (46-116) U/L C-Reactive Protein (<1.0) mg/dL Total Protein (6.4-8.2) g/dl Albumin (3.4-5.0) g/dl Globulin gm/dL Albumin/Globulin Ratio (1-2) Urine Color Dark yellow (Yellow) Urine Appearance Slt cloudy H (Clear) Urine pH 5.5 (5.0-8.0) Ur Specific [place] > or = 1.030 (1.005-1.030) Urine Protein 3+ H (Negative) Urine Glucose (UA) Trace H (Negative) Urine Ketones Trace H (Negative) Urine Occult Blood 3+ H (Negative) Urine Nitrite Negative (Negative) Urine Bilirubin 3+ H (Negative) Urine Urobilinogen >=8.0 H (0.2-1.0) Ur Leukocyte Esterase Negative (Negative) U Hyaline Cast (Auto) 0-5 (0-5) /lpf Urine RBC 5-10 H (0-5) /hpf Urine WBC 20-30 H (0-5) /hpf Ur Epithelial Cells Not seen (0-5) /hpf Urine Bacteria Moderate H (FEW) /hpf Coarse Granular Casts 30-40 H (0-5) /hpf Urine Mucus Not seen (FEW) /hpf Meds: Medications Generic Name Dose Route Start Last Admin Trade Name Freq PRN Reason Stop Dose Admin Sodium Chloride 1,000 mls @ 125 mls/hr 01/01/21 23:15 01/01/21 23:56 Normal Saline IV 125 mls/hr ASDIRECTED GIFTY Administration Sodium Chloride 10 ml 01/01/21 23:12 01/01/21 23:57 Sodium Chloride 0.9% 10 Ml Syringe FLUSH 10 ml ASDIRECTED PRN Administration Keep Vein Open Discontinued Medications Generic Name Dose Route Start Last Admin Trade Name Freq PRN Reason Stop Dose Admin Albuterol/Ipratropium 3 ml 01/01/21 23:14 01/01/21 23:37 Albuterol/Ipratropium 3.0-0.5 Mg/3 Ml Neb Soln NEB 01/01/21 23:15 3 ml ONETIME ONE Administration Dexamethasone 6 mg 01/01/21 23:13 01/01/21 23:57 Dexamethasone 4 Mg/Ml Sdv IVPUSH 01/01/21 23:14 6 mg ONETIME ONE Administration Sodium Chloride 1,000 mls @ 1,000 mls/hr 01/02/21 00:03 01/02/21 00:17 Normal Saline IV 01/02/21 01:02 1,000 mls/hr ONETIME ONE Administration Ceftriaxone Sodium 2 gm/ 100 mls @ 200 mls/hr 01/02/21 00:57 01/02/21 01:17 Sodium Chloride IV 01/02/21 01:26 200 mls/hr ONETIME ONE Administration Sodium Chloride 1,000 mls @ 1,000 mls/hr 01/02/21 01:11 01/02/21 01:18 Normal Saline IV 01/02/21 02:10 1,000 mls/hr ONETIME ONE Administration Lactated Ringer's 1,000 mls @ 1,000 mls/hr 01/02/21 01:11 01/02/21 02:52 Ringers, Lactated IV 01/02/21 02:10 1,000 mls/hr .BOLUS ONE Administration - Re-Assessments/Exams Free Text/Narrative Re-Assessment/Exam: 01/02/21 05:16 I ordered oxygen 5L NC, IV NS 1L bolus, CXR, labs, UA, blood cultures and lactic acid. His WBC was elevated at 33.56. His platelets were elevated at 449. His D-dimer was elevated at 1.83. His Na was elevated at 150. His K was low at 3.1. His BUN was elevated at 43. His creatinine was elevated at 2. His glucose was elevated at 180. His lactic acid was elevated at 2.4. His CRP was elevated at 5.5. His UA shows a UTI. 01/02/21 05:19 The patient has a UTI with sepsis. He was COVID positive over 10 days ago. I ordered rocephin and more fluids for a 30mLkg bolus. I also rechecked his lactic acid and now it is normal at 1.1. 01/02/21 05:44 I called the power of tax attorney Gaby his sister and updated her on how her brother is doing. We talked about DNI/DNR and she and her family still wanted him full code at this time. She says that before today he would answer a few questions but over the past couple days he was less responsive. I called [facility] in [place] and [facility] in [place] and they have no beds. We should have some beds open up today. I will see about admitting the patient here. 01/02/21 07:13 I talked to our hospitalist Dr Brenner and he agreed to the admission when a bed opens up. Departure - Departure Time of Disposition: 07:15 Disposition: Admitted As Inpatient 67 Condition: Serious Clinical Impression: Renal insufficiency UTI (urinary tract infection) Qualifiers: Urinary tract infection type: acute cystitis Hematuria presence: without hematuria Qualified Code(s): N30.00 - Acute cystitis without hematuria Sepsis Qualifiers: Sepsis type: sepsis due to unspecified organism Sepsis acute organ dysfunction status: unspecified Qualified Code(s): A41.9 - Sepsis, unspecified organism - Discharge Information Referrals: Todd Perdue MD [Primary Care Provider] - Forms: ED Department Discharge Sepsis Event Note (ED) - Evaluation Sepsis Screening Result: Severe Sepsis Risk - Focused Exam Vital Signs: Vital Signs Temp Pulse Resp BP Pulse Ox Pulse Ox 01/02/21 04:30 114 H 32 H 128/74 95 01/02/21 04:00 118 H 30 H 130/69 95 01/01/21 23:40 91 L 01/01/21 23:15 91 L 01/01/21 23:09 99 F 150 H 40 H 146/94 H 88 L - My Orders Last 24 Hours: My Active Orders 01/01/21 23:12 Cardiac Monitoring [RC] . DIRECTED Oxygen Therapy [RC] PRN Peripheral IV Care [RC] . DIRECTED Sodium Chloride 0.9% [Saline Flush] 10 ml FLUSH ASDIRECTED PRN Peripheral IV Insertion Adult [OM.PC] Stat 01/01/21 23:13 Chest 1V Frontal [CR] Stat Blood Culture x2 Reflex Set [OM.PC] Stat 01/01/21 23:14 RT Aerosol Therapy [RC] ASDIRECTED 01/01/21 23:15 Sodium Chloride 0.9% [Normal Saline] 1,000 ml IV ASDIRECTED 01/01/21 23:25 BLOOD CULTURE [MREF] Stat 01/01/21 23:40 BLOOD CULTURE [MREF] Stat 01/02/21 00:15 CULTURE URINE [MREF] Stat - Assessment/Plan Last 24 Hours: My Active Orders 01/01/21 23:12 Cardiac Monitoring [RC] . DIRECTED Oxygen Therapy [RC] PRN Peripheral IV Care [RC] . DIRECTED Sodium Chloride 0.9% [Saline Flush] 10 ml FLUSH ASDIRECTED PRN Peripheral IV Insertion Adult [OM.PC] Stat 01/01/21 23:13 Chest 1V Frontal [CR] Stat Blood Culture x2 Reflex Set [OM.PC] Stat 01/01/21 23:14 RT Aerosol Therapy [RC] ASDIRECTED 01/01/21 23:15 Sodium Chloride 0.9% [Normal Saline] 1,000 ml IV ASDIRECTED 01/01/21 23:25 BLOOD CULTURE [MREF] Stat 01/01/21 23:40 BLOOD CULTURE [MREF] Stat 01/02/21 00:15 CULTURE URINE [MREF] Stat
--- NOTE | 2021-01-02 08:27 | CR ---
Chest: Frontal view of the chest was obtained. Comparison: Prior chest x-ray of 12/22/20. Heart size and mediastinum are within normal limits. Lungs show slight atelectasis within the lung bases. Lungs otherwise are clear. Mild scoliosis is noted within the spine with mild degenerative change. Impression: 1. Slight bibasilar atelectasis. Bone findings which are felt to be chronic. 2. Nothing acute is otherwise seen on frontal chest x-ray. Diagnostic code #2
[2021-01-02] MEDS ORDERED: Morphine 2 MG/ML SYRINGE IVPUSH PRN (14:20)
[2021-01-02] MEDS ORDERED: Acetaminophen 325 MG Tab PO PRN (14:20)
[2021-01-02] MEDS ORDERED: Promethazine 12.5 MG in Sodium Chloride 0.9% 50 ML IV PRN (14:20)
[2021-01-02] MEDS ORDERED: hydrALAZINE 20 MG/ML SDV IVPUSH PRN (14:37)
[2021-01-02] MEDS ORDERED: NS + KCl 20mEq/L 1,000 ML IV SCH (14:45)
[2021-01-02] MEDS ORDERED: Heparin Sodium 5,000 Units/ML Vial SUBCUT SCH (15:00)
[2021-01-02] MEDS: Metoprolol Tartrate 5 MG/5 ML SDV IVPUSH PRN ×3 (15:11→21:00)
--- NOTE | 2021-01-02 15:50 | PCM.HP.2 ---
H&P History of Present Illness - General Date of Service: 01/02/21 Admit Problem/Dx: Admission Diagnosis/Problem Admission Diagnosis/Problem Hypoxia Source of Information: Other (ER chart) - History of Present Illness Initial Comments - Free Text/Narative: Patient is a 70-year-old male with a history of diabetes and Alzheimer's dementia who was brought to the ER from [facility] due to altered mental status. Patient is normally minimally responsive but is now nonresponsive to verbal stimuli. Patient had positive COVID-19 test 10 days ago and received Regeneron. He was found to have trouble breathing and fast breathing. In the ER, temperature 39.5, tachycardia up to 138, tachypnea up to 30, oxygen desaturation 83%. Urinalysis is compatible with UTI. Chest x-ray no acute change. - Related Data Allergies/Adverse Reactions: Allergies Allergy/AdvReac Type Severity Reaction Status Date / Time No Known Allergies Allergy Verified 01/01/21 23:14 Home Medications: Home Meds ClonazePAM [KlonoPIN] 0.25 mg PO BID 12/13/16 [History] Meloxicam 15 mg PO DAILY 12/13/16 [History] Acetaminophen 650 mg PO ASDIRECTED PRN 12/22/20 [History] Chlorthalidone 25 mg PO DAILY 12/22/20 [History] Cholecalciferol (Vitamin D3) [Vitamin D3] 25 mcg PO DAILY 12/22/20 [History] Clotrimazole [Clotrimazole 1%] 1 applic TOP BID 12/22/20 [History] Docusate Sodium 100 mg PO BID 12/22/20 [History] Escitalopram [Lexapro] 20 mg PO DAILY 12/22/20 [History] Magnesium Hydroxide [Milk of Magnesia] 2,400 mg PO ASDIRECTED PRN 12/22/20 [History] Memantine HCl [Namenda] 10 mg PO BID 12/22/20 [History] Omeprazole 20 mg PO ACBREAKFAST 12/22/20 [History] buPROPion [buPROPion XL] 150 mg PO DAILY 12/22/20 [History] polyethylene glycoL 3350 [Miralax] 17 gm PO DAILY 12/22/20 [History] risperiDONE [RisperiDAL] 0.25 mg PO DAILY 12/22/20 [History] risperiDONE [RisperiDAL] 1 mg PO BEDTIME 12/22/20 [History] Past Medical History Cardiovascular History: Reports: PVD Gastrointestinal History: Reports: GERD Genitourinary History: Reports: Chronic Renal Insuffiency, Urinary Incontinence Neurological History: Reports: Alzheimers Disease Psychiatric History: Reports: Bipolar Other Psychiatric History: manic depression - Infectious Disease History Infectious Disease History: Reports: Novel Coronavirus Social & Family History - Family History Family Medical History: Unobtainable (Due to AMS) - Tobacco Use Tobacco Use Status *Q: Unknown Ever Used Tobacco Second Hand Smoke Exposure: No - Caffeine Use Caffeine Use: Reports: Coffee, Energy Drinks, Soda, Tea - Recreational Drug Use Recreational Drug Use: No - Living Situation & Occupation Living situation: Reports: Single, Alone 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 No: Lymphadenopathy, JVD Lungs: Clear to Auscultation, Decreased Breath Sounds Cardiovascular: Regular Rate, Regular Rhythm, Tachycardia GI/Abdominal Exam: Normal Bowel Sounds, Soft, No Organomegaly, No Distention Extremities: Normal Inspection, No Pedal Edema Neurological: Reflexes Equal Bilateral Neuro Extensive - Mental Status: Disorientation to Person, Disorientation to Place, Disorientation to Time, Withdraws to Pain Psychiatric: Other (Unable to complete due to AMS) - Patient Data Lab Results Last 24 hrs: Laboratory Results - last 24 hr 01/01/21 01/01/21 01/01/21 Range/Units 23:00 23:00 23:00 WBC 33.56 H (4.23-9.07) K/mm3 RBC 5.37 (4.63-6.08) M/mm3 Hgb 17.4 D (13.7-17.5) gm/dl Hct 54.3 H (40.1-51.0) % MCV 101.1 H D (79.0-92.2) fl MCH 32.4 H (25.7-32.2) pg MCHC 32.0 L (32.2-35.5) g/dl RDW Std Deviation 50.9 H (35.1-43.9) fL Plt Count 449 H D (163-337) K/mm3 MPV 11.3 (9.4-12.3) fl Neut % (Auto) 84.3 H (34.0-67.9) % Lymph % (Auto) 7.4 L (21.8-53.1) % [place] % (Auto) 7.5 (5.3-12.2) % Eos % (Auto) 0 L (0.8-7.0) Baso % (Auto) 0.1 (0.1-1.2) % Neut # (Auto) 28.30 H (1.78-5.38) K/mm3 Lymph # (Auto) 2.48 (1.32-3.57) K/mm3 [place] # (Auto) 2.52 H (0.30-0.82) K/mm3 Eos # (Auto) 0.00 L (0.04-0.54) K/mm3 Baso # (Auto) 0.04 (0.01-0.08) K/mm3 Manual Slide Review Abnormal smear D-Dimer, Quantitative 1.83 H (0.19-0.50) mg/L Sodium 150 H D (136-145) mEq/L Potassium 3.1 L (3.5-5.1) mEq/L Chloride 108 H (98-107) mEq/L Carbon Dioxide 34 H (21-32) mEq/L Anion Gap 11.1 (5-15) BUN 43 H (7-18) mg/dL Creatinine 2.0 H (0.7-1.3) mg/dL Est Cr Clr Drug Dosing 32.59 mL/min Estimated GFR (MDRD) 33 (>60) mL/min BUN/Creatinine Ratio 21.5 H (14-18) Glucose 180 H (70-99) mg/dL Lactic Acid (0.4-2.0) mmol/L Calcium 9.5 (8.5-10.1) mg/dL Total Bilirubin 1.1 H (0.2-1.0) mg/dL AST 29 (15-37) U/L ALT 41 (16-63) U/L Alkaline Phosphatase 76 (46-116) U/L C-Reactive Protein 5.5 H* (<1.0) mg/dL Total Protein 8.0 (6.4-8.2) g/dl Albumin 3.5 (3.4-5.0) g/dl Globulin 4.5 gm/dL Albumin/Globulin Ratio 0.8 L (1-2) Urine Color (Yellow) Urine Appearance (Clear) Urine pH (5.0-8.0) Ur Specific [place] (1.005-1.030) Urine Protein (Negative) Urine Glucose (UA) (Negative) Urine Ketones (Negative) Urine Occult Blood (Negative) Urine Nitrite (Negative) Urine Bilirubin (Negative) Urine Urobilinogen (0.2-1.0) Ur Leukocyte Esterase (Negative) U Hyaline Cast (Auto) (0-5) /lpf Urine RBC (0-5) /hpf Urine WBC (0-5) /hpf Ur Epithelial Cells (0-5) /hpf Urine Bacteria (FEW) /hpf Coarse Granular Casts (0-5) /hpf Urine Mucus (FEW) /hpf 01/01/21 01/02/21 01/02/21 Range/Units 23:00 00:15 02:51 WBC (4.23-9.07) K/mm3 RBC (4.63-6.08) M/mm3 Hgb (13.7-17.5) gm/dl Hct (40.1-51.0) % MCV (79.0-92.2) fl MCH (25.7-32.2) pg MCHC (32.2-35.5) g/dl RDW Std Deviation (35.1-43.9) fL Plt Count (163-337) K/mm3 MPV (9.4-12.3) fl Neut % (Auto) (34.0-67.9) % Lymph % (Auto) (21.8-53.1) % [place] % (Auto) (5.3-12.2) % Eos % (Auto) (0.8-7.0) Baso % (Auto) (0.1-1.2) % Neut # (Auto) (1.78-5.38) K/mm3 Lymph # (Auto) (1.32-3.57) K/mm3 [place] # (Auto) (0.30-0.82) K/mm3 Eos # (Auto) (0.04-0.54) K/mm3 Baso # (Auto) (0.01-0.08) K/mm3 Manual Slide Review D-Dimer, Quantitative (0.19-0.50) mg/L Sodium (136-145) mEq/L Potassium (3.5-5.1) mEq/L Chloride (98-107) mEq/L Carbon Dioxide (21-32) mEq/L Anion Gap (5-15) BUN (7-18) mg/dL Creatinine (0.7-1.3) mg/dL Est Cr Clr Drug Dosing mL/min Estimated GFR (MDRD) (>60) mL/min BUN/Creatinine Ratio (14-18) Glucose (70-99) mg/dL Lactic Acid 2.4 H* 1.1 (0.4-2.0) mmol/L Calcium (8.5-10.1) mg/dL Total Bilirubin (0.2-1.0) mg/dL AST (15-37) U/L ALT (16-63) U/L Alkaline Phosphatase (46-116) U/L C-Reactive Protein (<1.0) mg/dL Total Protein (6.4-8.2) g/dl Albumin (3.4-5.0) g/dl Globulin gm/dL Albumin/Globulin Ratio (1-2) Urine Color Dark yellow (Yellow) Urine Appearance Slt cloudy H (Clear) Urine pH 5.5 (5.0-8.0) Ur Specific [place] > or = 1.030 (1.005-1.030) Urine Protein 3+ H (Negative) Urine Glucose (UA) Trace H (Negative) Urine Ketones Trace H (Negative) Urine Occult Blood 3+ H (Negative) Urine Nitrite Negative (Negative) Urine Bilirubin 3+ H (Negative) Urine Urobilinogen >=8.0 H (0.2-1.0) Ur Leukocyte Esterase Negative (Negative) U Hyaline Cast (Auto) 0-5 (0-5) /lpf Urine RBC 5-10 H (0-5) /hpf Urine WBC 20-30 H (0-5) /hpf Ur Epithelial Cells Not seen (0-5) /hpf Urine Bacteria Moderate H (FEW) /hpf Coarse Granular Casts 30-40 H (0-5) /hpf Urine Mucus Not seen (FEW) /hpf Result Diagrams: 01/01/21 23:00 01/01/21 23:00 Sepsis Event Note - Evaluation Sepsis Screening Result: Severe Sepsis Risk - Focused Exam Vital Signs: Vital Signs Temp Temp Pulse Pulse Resp BP BP 01/02/21 15:11 138 H 164/85 H 01/02/21 15:05 37.8 C 138 H 01/02/21 14:17 129 H 01/02/21 14:06 39.5 C H 126 H 30 H 140/78 01/02/21 04:30 114 H 32 H 128/74 01/02/21 04:00 118 H 30 H 130/69 Pulse Ox 01/02/21 15:11 01/02/21 15:05 01/02/21 14:17 88 L 01/02/21 14:06 83 L 01/02/21 04:30 95 01/02/21 04:00 95 Problem List Initiated/Reviewed/Updated: Yes Orders Last 24hrs: Active Orders 24 hr Category Date Time Status Patient Status [ADT] Routine ADT 01/02/21 13:33 Active Cardiac Monitoring [RC] . DIRECTED Care 01/01/21 23:12 Active Mcadams Catheter Insertion [Insert Urinary Catheter] [OM. Care 01/02/21 14:45 Ordered PC] Q24H Intake and Output [RC] 04,16 Care 01/02/21 14:21 Active Oxygen Therapy [RC] PRN Care 01/02/21 14:20 Active Pulse Oximetry [RC] CONTINUOUS Care 01/02/21 14:22 Active RT Aerosol Therapy [RC] ASDIRECTED Care 01/01/21 23:14 Active Up to Chair [RC] ASDIRECTED Care 01/02/21 14:20 Active Urinary Catheter Assessment [RC] ASDIRECTED Care 01/02/21 14:36 Active VTE/DVT Education [RC] PER UNIT ROUTINE Care 01/02/21 14:20 Active Vital Signs [RC] Q4H Care 01/02/21 14:20 Active OT Evaluation and Treatment [CONS] Routine Cons 01/02/21 14:20 Active PT Evaluation and Treatment [CONS] Routine Cons 01/02/21 14:20 Active MARKER HAND Evaluation and Treatment [CONS] Routine Cons 01/02/21 14:20 Active Nothing per Oral Now Diet [DIET] Diet 01/02/21 Dinner Active Chest wo Cont [CT] Stat Exams 01/02/21 14:34 Ordered ABG [BLOOD GAS ARTERIAL] [BG] Urgent Lab 01/02/21 14:43 Ordered BASIC METABOLIC PANEL,BMP [CHEM] Stat Lab 01/02/21 15:04 Ordered BLOOD CULTURE [MREF] Stat Lab 01/01/21 23:25 Received BLOOD CULTURE [MREF] Stat Lab 01/01/21 23:40 Received C-REACTIVE PROTEIN [CHEM] DAILY Lab 01/03/21 05:00 Ordered C-REACTIVE PROTEIN [CHEM] DAILY Lab 01/04/21 05:00 Ordered C-REACTIVE PROTEIN [CHEM] DAILY Lab 01/05/21 05:00 Ordered C-REACTIVE PROTEIN [CHEM] DAILY Lab 01/06/21 05:00 Ordered C-REACTIVE PROTEIN [CHEM] DAILY Lab 01/07/21 05:00 Ordered CBC WITH AUTO DIFF [HEME] DAILY Lab 01/03/21 05:00 Ordered CBC WITH AUTO DIFF [HEME] DAILY Lab 01/04/21 05:00 Ordered CBC WITH AUTO DIFF [HEME] DAILY Lab 01/05/21 05:00 Ordered CBC WITH AUTO DIFF [HEME] DAILY Lab 01/06/21 05:00 Ordered CBC WITH AUTO DIFF [HEME] DAILY Lab 01/07/21 05:00 Ordered COMPREHENSIVE METABOLIC PN,CMP [CHEM] DAILY Lab 01/03/21 05:00 Ordered COMPREHENSIVE METABOLIC PN,CMP [CHEM] DAILY Lab 01/04/21 05:00 Ordered COMPREHENSIVE METABOLIC PN,CMP [CHEM] DAILY Lab 01/05/21 05:00 Ordered COMPREHENSIVE METABOLIC PN,CMP [CHEM] DAILY Lab 01/06/21 05:00 Ordered COMPREHENSIVE METABOLIC PN,CMP [CHEM] DAILY Lab 01/07/21 05:00 Ordered CULTURE URINE [MREF] Stat Lab 01/02/21 00:15 Received D-DIMER QUANTITATIVE [COAG] Routine Lab 01/02/21 14:36 Ordered LACTIC ACID [CHEM] Routine Lab 01/02/21 14:32 Ordered MAGNESIUM [CHEM] Routine Lab 01/02/21 14:20 Ordered PRO B-TYPE NATRIUR PEPT,BNPPRO [CHEM] Stat Lab 01/02/21 15:04 Ordered TROPONIN I [CHEM] Routine Lab 01/02/21 14:20 Ordered Acetaminophen [TylenoL] Med 01/02/21 14:20 Active 650 mg PO Q6H PRN Albuterol/Ipratropium [DuoNeb 3.0-0.5 MG/3 ML] Med 01/02/21 14:20 Active 3 ml NEB Q4H PRN Cholecalciferol (Vitamin D3) [Vitamin D3] Med 01/03/21 09:00 Active 25 mcg PO DAILY Docusate Sodium [Colace] Med 01/02/21 21:00 Active 100 mg PO BID Heparin Sodium Med 01/02/21 15:00 Active 5,000 units SUBCUT Q8H Memantine [Namenda] Med 01/02/21 21:00 Active 10 mg PO BID Metoprolol Tartrate [Lopressor] Med 01/02/21 14:39 Active 2.5 mg IVPUSH Q2H PRN Morphine Med 01/02/21 14:20 Active 2 mg IVPUSH Q4H PRN NS + KCl 20mEq/L [Normal Saline with 20 mEq KCl] 1,000 Med 01/02/21 14:45 Active ml IV ASDIRECTED Pantoprazole [ProTONIX] Med 01/03/21 06:00 Active 40 mg PO ACBREAKFAST Piperacillin/Tazobactam [Piperacil-Tazobact] 4.5 gm Med 01/02/21 16:00 Active Sodium Chloride 0.9% [Normal Saline] 100 ml IV ONETIME Piperacillin/Tazobactam [Piperacil-Tazobact] 4.5 gm Med 01/03/21 00:00 Active Sodium Chloride 0.9% [Normal Saline] 100 ml IV Q8H Promethazine [Phenergan] 12.5 mg Med 01/02/21 14:20 Active Sodium Chloride 0.9% [Normal Saline] 50 ml IV Q6H Sodium Chloride 0.9% [Saline Flush] Med 01/01/21 23:12 Active 10 ml FLUSH ASDIRECTED PRN buPROPion [Wellbutrin XL] Med 01/03/21 09:00 Active 150 mg PO DAILY hydrALAZINE [Apresoline] Med 01/02/21 14:37 Active 10 mg IVPUSH Q4H PRN Blood Culture x2 Reflex Set [OM.PC] Stat Oth 01/01/21 23:13 Ordered Peripheral IV Insertion Adult [OM.PC] Stat Oth 01/01/21 23:12 Ordered Code Status [Resuscitation Status] Routine Resus Stat 01/02/21 15:11 Ordered Medication Orders Acetaminophen (Acetaminophen 325 Mg Tab) 650 mg PO Q6H PRN PRN Reason: Pain (Mild 1-3)/fever Albuterol/Ipratropium (Albuterol/Ipratropium 3.0-0.5 Mg/3 Ml Neb Soln) 3 ml NEB Q4H PRN PRN Reason: Shortness Of Breath/wheezing Bupropion HCl (Bupropion 150 Mg Tab.Er) 150 mg PO DAILY [facility] Cholecalciferol (Cholecalciferol (Vitamin D3) 25 Mcg Tab) 25 mcg PO DAILY [facility] Docusate Sodium (Docusate Sodium 100 Mg Cap) 100 mg PO BID [facility] Heparin Sodium (Porcine) (Heparin Sodium 5,000 Units/Ml Vial) 5,000 units SUB CUT Q8H [facility] Last Admin: 01/02/21 15:17 Dose: 5,000 units Documented by: WARD Hydralazine HCl (Hydralazine 20 Mg/Ml Sdv) 10 mg IVPUSH Q4H PRN PRN Reason: Hypertension Promethazine HCl 12.5 mg/ (Sodium Chloride) 50.5 mls @ 100 mls/hr IV Q6H PRN PRN Reason: Nausea/Vomiting Potassium Chloride/Sodium Chloride (Normal Saline With 20 Meq Kcl) 1,000 mls @ 75 mls/hr IV ASDIRECTED [facility] Last Admin: 01/02/21 15:20 Dose: 75 mls/hr Documented by: WARD Piperacillin Sod/Tazobactam (Sod 4.5 gm/ Sodium Chloride) 100 mls @ 200 mls/hr IV ONETIME ONE Stop: 01/02/21 16:29 Last Admin: 01/02/21 15:26 Dose: 200 mls/hr Documented by: WARD Piperacillin Sod/Tazobactam (Sod 4.5 gm/ Sodium Chloride) 100 mls @ 25 mls/hr IV Q8H [facility] Memantine (Memantine 10 Mg Tab) 10 mg PO BID [facility] Metoprolol Tartrate (Metoprolol Tartrate 5 Mg/5 Ml Sdv) 2.5 mg IVPUSH Q2H PRN PRN Reason: Tachycardia Last Admin: 01/02/21 15:11 Dose: 2.5 mg Documented by: WARD Morphine Sulfate (Morphine 2 Mg/Ml Syringe) 2 mg IVPUSH Q4H PRN PRN Reason: Pain (severe 7-10) Stop: 01/03/21 14:24 Pantoprazole Sodium (Pantoprazole 40 Mg Tab.Cr) 40 mg PO ACBREAKFAST GIFTY Sodium Chloride (Sodium Chloride 0.9% 10 Ml Syringe) 10 ml FLUSH ASDIRECTED PRN PRN Reason: Keep Vein Open Last Admin: 01/01/21 23:57 Dose: 10 ml Documented by: KEISHA Assessment/Plan Comment:: Patient is a 70-year-old male with a history of diabetes and Alzheimer's dementia who was brought to the ER from [facility] due to altered mental status. AMS Etiology unknown. Could be due to sepsis, metabolic events, TIA/stroke CT of head Mcadams catheter Alzheimer's dementia Continue home medication memantine Acute hypoxic and hypercapnic respiratory failure Patient had been on 2 L since the positive Covid 19 test 10 days ago until yesterday he needs more oxygen. ABG - ph 7.28, pCO2 71 Bipap prn to keep PCO2 < 50 and SPO2 > 90% Etiology for CO2 retention unknown. CT of chest was ordered but is not able to do due to patient condition and BiPAP Troponin BNP Sepsis 2nd to UTI Tachycardia and tachypnea 3 L normal saline was given in the ER Continue IV fluid IV antibiotic Blood culture Urine culture UTI Urinalysis compatible with UTI Zosyn 2.25 g every 6 hour Positive Covid 19 Had a positive COVID-19 test that came days ago I would not like to initiate remdesivir at this moment I would not like you to initiate a steroid at this moment since he has bacterial sepsis D-dimer elevated. I will initiate Lovenox 80 mg twice daily Inhalers Chest x-ray-no acute change Chest CT was ordered Dehydration 3 L normal saline were given in the ER Continue IV fluid ASHLEY, creatinine 1.3 on 12/22/2020 Etiologies including prerenal cause, sepsis, ATN Avoid nephrotoxic meds and contrast Repeat renal function in the morning disposition Elevation of D-dimer Could be due to COVID-19 infection or thromboembolic events Lovenox 80 mg twice daily DVT prophylaxis: Lovenox CODE STATUS: DNR/DNI Discussed with Sister Gaby who initially would like to have CPR only but she called us back later she and her family would like to have DNR/DNI. Disposition: Greater than 2 midnights - Mortality Measure Prognosis:: Poor
[2021-01-02] MEDS ORDERED: Piperacillin/Tazobactam 4.5 GM in Sodium Chloride 0.9% 100 ML IV ONE (16:00)
[2021-01-02] MEDS ORDERED: Dextrose 5%-Lact Ringers w/KCl 1,000 ML IV SCH (17:00)
[2021-01-02] MEDS: Enoxaparin 80 MG/0.8 ML Syringe SUBCUT SCH ×2 (17:27→21:08)
[2021-01-02] MEDS: Albuterol/Ipratropium 3.0-0.5 MG/3 ML Neb Soln NEB PRN (19:55)
[2021-01-02] MEDS: Memantine 10 MG Tab PO SCH (20:08)
[2021-01-02] MEDS: Docusate Sodium 100 MG Cap PO SCH (20:08)
[2021-01-02] MEDS ORDERED: risperiDONE 1 MG Tab PO SCH (21:00)
[2021-01-02] MEDS ORDERED: cefTRIAXone 1 GM in Sodium Chloride 0.9% 100 ML IV SCH (22:00)
[2021-01-02] MEDS: Piperacillin/Tazobactam 4.5 GM in Sodium Chloride 0.9% 100 ML IV SCH (23:05)
[2021-01-03] MEDS: Metoprolol Tartrate 5 MG/5 ML SDV IVPUSH PRN ×3 (00:36→08:25)
[2021-01-03] MEDS: Pantoprazole 40 MG Tab.CR PO SCH (05:09)
[2021-01-03] MEDS: Albuterol/Ipratropium 3.0-0.5 MG/3 ML Neb Soln NEB PRN ×2 (05:55→20:06)
[2021-01-03] MEDS: Piperacillin/Tazobactam 4.5 GM in Sodium Chloride 0.9% 100 ML IV SCH ×2 (08:25→19:47)
[2021-01-03] MEDS: Enoxaparin 80 MG/0.8 ML Syringe SUBCUT SCH ×2 (08:26→21:50)
[2021-01-03] MEDS ORDERED: Potassium Chloride 20 MEQ in Dextrose 5% in Water 1,000 ML IV SCH ×2 (08:45)
[2021-01-03] MEDS ORDERED: risperiDONE 0.25 MG Tab PO SCH (09:00)
[2021-01-03] MEDS: Docusate Sodium 100 MG Cap PO SCH ×2 (09:05→22:30)
[2021-01-03] MEDS: Memantine 10 MG Tab PO SCH ×2 (09:05→22:30)
[2021-01-03] MEDS: buPROPion 150 MG Tab.ER PO SCH (09:06)
[2021-01-03] MEDS: Cholecalciferol (Vitamin D3) 25 MCG Tab PO SCH (09:06)
[2021-01-03] MEDS: Potassium Chloride 20 MEQ in Dextrose 5% in Water 1,000 ML IV SCH ×4 (10:52→23:47)
--- NOTE | 2021-01-03 15:29 | PCM.PN ---
- General Info Date of Service: 01/03/21 Admission Dx/Problem (Free Text): Admission Diagnosis/Problem Admission Diagnosis/Problem Hypoxia Subjective Update: Patient is a 70-year-old male with a history of diabetes and Alzheimer's dementia who was brought to the ER from [facility] due to altered mental status. Patient is still unresponsive to verbal stimuli and might be responsive to pain stimuli. His blood pressure is improving. He still has a tachycardia and tachypnea. He is still on BiPAP WBC came down to 28.9 from 33.56 yesterday. Creatinine 1.7 His troponin 0.102-> 0.114-> 0.162 Called and updated his condition to Sister Gaby, who would like to continue current treatment. She also would like to start to give him nutrition. I expla ined to her NG tube will increase the risk for aspiration since he is on BiPAP. Gaby agreed to do TPN. Gaby also understood we are unable to do CT of chest and CT of head at this moment. I also discussed with the Gaby about the elevation of the troponin. Gaby does not want to transfer him to higher level hospital where there is a lens dotter available. Gaby would like to continue to treat him here. - Review of Systems General: Reports: Other (Unable to obtain that due to AMS ) - Patient Data Vitals - Most Recent: Last Vital Signs Temp 36.6 C 01/03/21 10:00 Pulse 120 H 01/03/21 08:25 Resp 30 H 01/03/21 10:00 BP 142/79 H 01/03/21 10:00 Pulse Ox 94 L 01/03/21 10:00 Weight - Most Recent: 90.265 kg I&O - Last 24 Hours: Intake & Output 01/03/21 01/03/21 01/03/21 06:59 14:59 22:59 Intake Total 857 Output Total 450 540 Balance 407 -540 Lab Results Last 24 Hours: Laboratory Results - last 24 hr 01/02/21 01/02/21 01/02/21 Range/Units 14:43 15:40 15:40 WBC (4.23-9.07) K/mm3 RBC (4.63-6.08) M/mm3 Hgb (13.7-17.5) gm/dl Hct (40.1-51.0) % MCV (79.0-92.2) fl MCH (25.7-32.2) pg MCHC (32.2-35.5) g/dl RDW Std Deviation (35.1-43.9) fL Plt Count (163-337) K/mm3 MPV (9.4-12.3) fl Neut % (Auto) (34.0-67.9) % Lymph % (Auto) (21.8-53.1) % [place] % (Auto) (5.3-12.2) % Eos % (Auto) (0.8-7.0) Baso % (Auto) (0.1-1.2) % Neut # (Auto) (1.78-5.38) K/mm3 Lymph # (Auto) (1.32-3.57) K/mm3 [place] # (Auto) (0.30-0.82) K/mm3 Eos # (Auto) (0.04-0.54) K/mm3 Baso # (Auto) (0.01-0.08) K/mm3 Manual Slide Review D-Dimer, Quantitative (0.19-0.50) mg/L Puncture Site Lt radial ABG pH 7.28 L (7.35-7.45) ABG pCO2 71.3 H* (35.0-45.0) mmHg ABG pO2 62.0 L (80.0-100.0) mmHg ABG HCO3 32.3 H (22.0-26.0) meq/L ABG O2 Saturation 84.7 L (96.0-97.0) % ABG Base Excess 3.1 H (-2-2.0) Elliott Test Positive O2 Delivery Device Oxymask Oxygen Flow Rate 15.0 Sodium (136-145) mEq/L Potassium (3.5-5.1) mEq/L Chloride (98-107) mEq/L Carbon Dioxide (21-32) mEq/L Anion Gap (5-15) BUN (7-18) mg/dL Creatinine (0.7-1.3) mg/dL Est Cr Clr Drug Dosing mL/min Estimated GFR (MDRD) (>60) mL/min BUN/Creatinine Ratio (14-18) Glucose (70-99) mg/dL POC Glucose (70-99) mg/dL Lactic Acid 1.8 (0.4-2.0) mmol/L Calcium (8.5-10.1) mg/dL Magnesium 2.5 H (1.8-2.4) mg/dL Total Bilirubin (0.2-1.0) mg/dL AST (15-37) U/L ALT (16-63) U/L Alkaline Phosphatase (46-116) U/L Troponin I 0.062 H* (0.00-0.056) ng/mL C-Reactive Protein (<1.0) mg/dL NT-Pro-B Natriuret Pep (0-125) pg/mL Total Protein (6.4-8.2) g/dl Albumin (3.4-5.0) g/dl Globulin gm/dL Albumin/Globulin Ratio (1-2) 01/02/21 01/02/21 01/02/21 Range/Units 15:40 15:40 15:40 WBC (4.23-9.07) K/mm3 RBC (4.63-6.08) M/mm3 Hgb (13.7-17.5) gm/dl Hct (40.1-51.0) % MCV (79.0-92.2) fl MCH (25.7-32.2) pg MCHC (32.2-35.5) g/dl RDW Std Deviation (35.1-43.9) fL Plt Count (163-337) K/mm3 MPV (9.4-12.3) fl Neut % (Auto) (34.0-67.9) % Lymph % (Auto) (21.8-53.1) % [place] % (Auto) (5.3-12.2) % Eos % (Auto) (0.8-7.0) Baso % (Auto) (0.1-1.2) % Neut # (Auto) (1.78-5.38) K/mm3 Lymph # (Auto) (1.32-3.57) K/mm3 [place] # (Auto) (0.30-0.82) K/mm3 Eos # (Auto) (0.04-0.54) K/mm3 Baso # (Auto) (0.01-0.08) K/mm3 Manual Slide Review D-Dimer, Quantitative 2.49 H (0.19-0.50) mg/L Puncture Site ABG pH (7.35-7.45) ABG pCO2 (35.0-45.0) mmHg ABG pO2 (80.0-100.0) mmHg ABG HCO3 (22.0-26.0) meq/L ABG O2 Saturation (96.0-97.0) % ABG Base Excess (-2-2.0) Elliott Test O2 Delivery Device Oxygen Flow Rate Sodium 152 H (136-145) mEq/L Potassium 3.2 L (3.5-5.1) mEq/L Chloride 112 H (98-107) mEq/L Carbon Dioxide 34 H (21-32) mEq/L Anion Gap 9.2 (5-15) BUN 38 H (7-18) mg/dL Creatinine 1.6 H (0.7-1.3) mg/dL Est Cr Clr Drug Dosing 40.74 mL/min Estimated GFR (MDRD) 43 (>60) mL/min BUN/Creatinine Ratio 23.8 H (14-18) Glucose 156 H (70-99) mg/dL POC Glucose (70-99) mg/dL Lactic Acid (0.4-2.0) mmol/L Calcium 8.6 (8.5-10.1) mg/dL Magnesium (1.8-2.4) mg/dL Total Bilirubin (0.2-1.0) mg/dL AST (15-37) U/L ALT (16-63) U/L Alkaline Phosphatase (46-116) U/L Troponin I (0.00-0.056) ng/mL C-Reactive Protein (<1.0) mg/dL NT-Pro-B Natriuret Pep 1064 H (0-125) pg/mL Total Protein (6.4-8.2) g/dl Albumin (3.4-5.0) g/dl Globulin gm/dL Albumin/Globulin Ratio (1-2) 01/02/21 01/02/21 01/02/21 Range/Units 17:24 20:15 23:02 WBC (4.23-9.07) K/mm3 RBC (4.63-6.08) M/mm3 Hgb (13.7-17.5) gm/dl Hct (40.1-51.0) % MCV (79.0-92.2) fl MCH (25.7-32.2) pg MCHC (32.2-35.5) g/dl RDW Std Deviation (35.1-43.9) fL Plt Count (163-337) K/mm3 MPV (9.4-12.3) fl Neut % (Auto) (34.0-67.9) % Lymph % (Auto) (21.8-53.1) % [place] % (Auto) (5.3-12.2) % Eos % (Auto) (0.8-7.0) Baso % (Auto) (0.1-1.2) % Neut # (Auto) (1.78-5.38) K/mm3 Lymph # (Auto) (1.32-3.57) K/mm3 [place] # (Auto) (0.30-0.82) K/mm3 Eos # (Auto) (0.04-0.54) K/mm3 Baso # (Auto) (0.01-0.08) K/mm3 Manual Slide Review D-Dimer, Quantitative (0.19-0.50) mg/L Puncture Site ABG pH (7.35-7.45) ABG pCO2 (35.0-45.0) mmHg ABG pO2 (80.0-100.0) mmHg ABG HCO3 (22.0-26.0) meq/L ABG O2 Saturation (96.0-97.0) % ABG Base Excess (-2-2.0) Elliott Test O2 Delivery Device Oxygen Flow Rate Sodium (136-145) mEq/L Potassium (3.5-5.1) mEq/L Chloride (98-107) mEq/L Carbon Dioxide (21-32) mEq/L Anion Gap (5-15) BUN (7-18) mg/dL Creatinine (0.7-1.3) mg/dL Est Cr Clr Drug Dosing mL/min Estimated GFR (MDRD) (>60) mL/min BUN/Creatinine Ratio (14-18) Glucose (70-99) mg/dL POC Glucose 150 H 167 H (70-99) mg/dL Lactic Acid (0.4-2.0) mmol/L Calcium (8.5-10.1) mg/dL Magnesium (1.8-2.4) mg/dL Total Bilirubin (0.2-1.0) mg/dL AST (15-37) U/L ALT (16-63) U/L Alkaline Phosphatase (46-116) U/L Troponin I 0.102 H* (0.00-0.056) ng/mL C-Reactive Protein (<1.0) mg/dL NT-Pro-B Natriuret Pep (0-125) pg/mL Total Protein (6.4-8.2) g/dl Albumin (3.4-5.0) g/dl Globulin gm/dL Albumin/Globulin Ratio (1-2) 01/03/21 01/03/21 01/03/21 Range/Units 05:50 05:50 05:55 WBC 28.90 H (4.23-9.07) K/mm3 RBC 4.69 (4.63-6.08) M/mm3 Hgb 15.2 D (13.7-17.5) gm/dl Hct 48.8 (40.1-51.0) % MCV 104.1 H D (79.0-92.2) fl MCH 32.4 H (25.7-32.2) pg MCHC 31.1 L (32.2-35.5) g/dl RDW Std Deviation 52.3 H (35.1-43.9) fL Plt Count 328 D (163-337) K/mm3 MPV 11.8 (9.4-12.3) fl Neut % (Auto) 89.6 H (34.0-67.9) % Lymph % (Auto) 2.9 L (21.8-53.1) % [place] % (Auto) 6.9 (5.3-12.2) % Eos % (Auto) 0 L (0.8-7.0) Baso % (Auto) 0.1 (0.1-1.2) % Neut # (Auto) 25.88 H (1.78-5.38) K/mm3 Lymph # (Auto) 0.85 L (1.32-3.57) K/mm3 [place] # (Auto) 2.00 H (0.30-0.82) K/mm3 Eos # (Auto) 0.00 L (0.04-0.54) K/mm3 Baso # (Auto) 0.02 (0.01-0.08) K/mm3 Manual Slide Review Abnormal smear D-Dimer, Quantitative (0.19-0.50) mg/L Puncture Site ABG pH (7.35-7.45) ABG pCO2 (35.0-45.0) mmHg ABG pO2 (80.0-100.0) mmHg ABG HCO3 (22.0-26.0) meq/L ABG O2 Saturation (96.0-97.0) % ABG Base Excess (-2-2.0) Elliott Test O2 Delivery Device Oxygen Flow Rate Sodium 155 H (136-145) mEq/L Potassium 2.9 L (3.5-5.1) mEq/L Chloride 115 H (98-107) mEq/L Carbon Dioxide 33 H (21-32) mEq/L Anion Gap 9.9 (5-15) BUN 39 H (7-18) mg/dL Creatinine 1.7 H (0.7-1.3) mg/dL Est Cr Clr Drug Dosing 38.34 mL/min Estimated GFR (MDRD) 40 (>60) mL/min BUN/Creatinine Ratio 22.9 H (14-18) Glucose 188 H (70-99) mg/dL POC Glucose 170 H (70-99) mg/dL Lactic Acid (0.4-2.0) mmol/L Calcium 8.9 (8.5-10.1) mg/dL Magnesium (1.8-2.4) mg/dL Total Bilirubin 0.8 (0.2-1.0) mg/dL AST 19 (15-37) U/L ALT 26 (16-63) U/L Alkaline Phosphatase 54 (46-116) U/L Troponin I 0.114 H* (0.00-0.056) ng/mL C-Reactive Protein 16.7 H* (<1.0) mg/dL NT-Pro-B Natriuret Pep (0-125) pg/mL Total Protein 6.8 (6.4-8.2) g/dl Albumin 2.5 L (3.4-5.0) g/dl Globulin 4.3 gm/dL Albumin/Globulin Ratio 0.6 L (1-2) 01/03/21 01/03/21 Range/Units 11:25 13:30 WBC (4.23-9.07) K/mm3 RBC (4.63-6.08) M/mm3 Hgb (13.7-17.5) gm/dl Hct (40.1-51.0) % MCV (79.0-92.2) fl MCH (25.7-32.2) pg MCHC (32.2-35.5) g/dl RDW Std Deviation (35.1-43.9) fL Plt Count (163-337) K/mm3 MPV (9.4-12.3) fl Neut % (Auto) (34.0-67.9) % Lymph % (Auto) (21.8-53.1) % [place] % (Auto) (5.3-12.2) % Eos % (Auto) (0.8-7.0) Baso % (Auto) (0.1-1.2) % Neut # (Auto) (1.78-5.38) K/mm3 Lymph # (Auto) (1.32-3.57) K/mm3 [place] # (Auto) (0.30-0.82) K/mm3 Eos # (Auto) (0.04-0.54) K/mm3 Baso # (Auto) (0.01-0.08) K/mm3 Manual Slide Review D-Dimer, Quantitative (0.19-0.50) mg/L Puncture Site ABG pH (7.35-7.45) ABG pCO2 (35.0-45.0) mmHg ABG pO2 (80.0-100.0) mmHg ABG HCO3 (22.0-26.0) meq/L ABG O2 Saturation (96.0-97.0) % ABG Base Excess (-2-2.0) Elliott Test O2 Delivery Device Oxygen Flow Rate Sodium (136-145) mEq/L Potassium (3.5-5.1) mEq/L Chloride (98-107) mEq/L Carbon Dioxide (21-32) mEq/L Anion Gap (5-15) BUN (7-18) mg/dL Creatinine (0.7-1.3) mg/dL Est Cr Clr Drug Dosing mL/min Estimated GFR (MDRD) (>60) mL/min BUN/Creatinine Ratio (14-18) Glucose (70-99) mg/dL POC Glucose 158 H (70-99) mg/dL Lactic Acid (0.4-2.0) mmol/L Calcium (8.5-10.1) mg/dL Magnesium (1.8-2.4) mg/dL Total Bilirubin (0.2-1.0) mg/dL AST (15-37) U/L ALT (16-63) U/L Alkaline Phosphatase (46-116) U/L Troponin I 0.162 H* (0.00-0.056) ng/mL C-Reactive Protein (<1.0) mg/dL NT-Pro-B Natriuret Pep (0-125) pg/mL Total Protein (6.4-8.2) g/dl Albumin (3.4-5.0) g/dl Globulin gm/dL Albumin/Globulin Ratio (1-2) Raj Results Last 24 Hours: Microbiology 01/01/21 23:40 Blood Culture - Preliminary Blood - Venous - Lab Draw 01/01/21 23:25 Blood Culture - Preliminary Blood - Venous 01/02/21 00:15 Urine Culture - Final Urine Med Orders - Current: Current Medications Acetaminophen (Acetaminophen 325 Mg Tab) 650 mg PO Q6H PRN PRN Reason: Pain (Mild 1-3)/fever Albuterol/Ipratropium (Albuterol/Ipratropium 3.0-0.5 Mg/3 Ml Neb Soln) 3 ml NEB Q4H PRN PRN Reason: Shortness Of Breath/wheezing Last Admin: 01/03/21 05:55 Dose: 3 ml Documented by: Atorvastatin Calcium (Atorvastatin 40 Mg Tab) 40 mg PO BEDTIME PENDING SALE TO [facility] Bupropion HCl (Bupropion 150 Mg Tab.Er) 150 mg PO DAILY PENDING SALE TO [facility] Last Admin: 01/03/21 09:06 Dose: Not Given Documented by: Cholecalciferol (Cholecalciferol (Vitamin D3) 25 Mcg Tab) 25 mcg PO DAILY PENDING SALE TO [facility] Last Admin: 01/03/21 09:06 Dose: Not Given Documented by: Docusate Sodium (Docusate Sodium 100 Mg Cap) 100 mg PO BID PENDING SALE TO [facility] Last Admin: 01/03/21 09:05 Dose: Not Given Documented by: Enoxaparin Sodium (Enoxaparin 80 Mg/0.8 Ml Syringe) 80 mg SUBCUT BID PENDING SALE TO [facility] Last Admin: 01/03/21 08:26 Dose: 80 mg Documented by: Hydralazine HCl (Hydralazine 20 Mg/Ml Sdv) 10 mg IVPUSH Q4H PRN PRN Reason: Hypertension Last Admin: 01/02/21 22:07 Dose: 10 mg Documented by: Promethazine HCl 12.5 mg/ (Sodium Chloride) 50.5 mls @ 100 mls/hr IV Q6H PRN PRN Reason: Nausea/Vomiting Piperacillin Sod/Tazobactam (Sod 4.5 gm/ Sodium Chloride) 100 mls @ 25 mls/hr IV Q8H GIFTY Last Admin: 01/03/21 08:25 Dose: 25 mls/hr Documented by: Potassium Chloride 20 meq/ (Dextrose/Water) 1,010 mls @ 101 mls/hr IV Q10H PENDING SALE TO [facility] Last Admin: 01/03/21 10:52 Dose: 101 mls/hr Documented by: Memantine (Memantine 10 Mg Tab) 10 mg PO BID PENDING SALE TO [facility] Last Admin: 01/03/21 09:05 Dose: Not Given Documented by: Pantoprazole Sodium (Pantoprazole 40 Mg Tab.Cr) 40 mg PO ACBREAKFAST PENDING SALE TO [facility] Last Admin: 01/03/21 05:09 Dose: Not Given Documented by: Sodium Chloride (Sodium Chloride 0.9% 10 Ml Syringe) 10 ml FLUSH ASDIRECTED PRN PRN Reason: Keep Vein Open Last Admin: 01/01/21 23:57 Dose: 10 ml Documented by: Discontinued Medications Albuterol/Ipratropium (Albuterol/Ipratropium 3.0-0.5 Mg/3 Ml Neb Soln) 3 ml NEB ONETIME ONE Stop: 01/01/21 23:15 Last Admin: 01/01/21 23:37 Dose: 3 ml Documented by: Dexamethasone (Dexamethasone 4 Mg/Ml Sdv) 6 mg IVPUSH ONETIME ONE Stop: 01/01/21 23:14 Last Admin: 01/01/21 23:57 Dose: 6 mg Documented by: Heparin Sodium (Porcine) (Heparin Sodium 5,000 Units/Ml Vial) 5,000 units SUBCUT Q8H GIFTY Last Admin: 01/02/21 15:17 Dose: 5,000 units Documented by: Sodium Chloride (Normal Saline) 1,000 mls @ 125 mls/hr IV ASDIRECTED GIFTY Last Admin: 01/01/21 23:56 Dose: 125 mls/hr Documented by: Sodium Chloride (Normal Saline) 1,000 mls @ 1,000 mls/hr IV ONETIME ONE Stop: 01/02/21 01:02 Last Admin: 01/02/21 00:17 Dose: 1,000 mls/hr Documented by: Ceftriaxone Sodium 2 gm/ (Sodium Chloride) 100 mls @ 200 mls/hr IV ONETIME ONE Stop: 01/02/21 01:26 Last Admin: 01/02/21 01:17 Dose: 200 mls/hr Documented by: Sodium Chloride (Normal Saline) 1,000 mls @ 1,000 mls/hr IV ONETIME ONE Stop: 01/02/21 02:10 Last Admin: 01/02/21 01:18 Dose: 1,000 mls/hr Documented by: Lactated Ringer's (Ringers, Lactated) 1,000 mls @ 1,000 mls/hr IV .BOLUS ONE Stop: 01/02/21 02:10 Last Admin: 01/02/21 02:52 Dose: 1,000 mls/hr Documented by: Ceftriaxone Sodium 1 gm/ (Sodium Chloride) 100 mls @ 200 mls/hr IV Q24H GIFTY Potassium Chloride/Sodium Chloride (Normal Saline With 20 Meq Kcl) 1,000 mls @ 75 mls/hr IV ASDIRECTED GIFTY Last Admin: 01/02/21 15:20 Dose: 75 mls/hr Documented by: Piperacillin Sod/Tazobactam (Sod 4.5 gm/ Sodium Chloride) 100 mls @ 200 mls/hr IV ONETIME ONE Stop: 01/02/21 16:29 Last Admin: 01/02/21 15:26 Dose: 200 mls/hr Documented by: Potassium Cl/Dextrose/Lact Ringer's (D5 Lr With 20 Meq Kcl) 1,000 mls @ 65 mls/hr IV ASDIRECTED GIFTY Last Admin: 01/02/21 17:29 Dose: 65 mls/hr Documented by: Potassium Chloride 20 meq/ (Dextrose/Water) 1,010 mls @ 101 mls/hr IV ASDIRECTED PENDING SALE TO [facility] Metoprolol Tartrate (Metoprolol Tartrate 5 Mg/5 Ml Sdv) 2.5 mg IVPUSH Q2H PRN PRN Reason: Tachycardia Last Admin: 01/03/21 08:25 Dose: 2.5 mg Documented by: Morphine Sulfate (Morphine 2 Mg/Ml Syringe) 2 mg IVPUSH Q4H PRN PRN Reason: Pain (severe 7-10) Stop: 01/03/21 14:24 Last Admin: 01/02/21 22:49 Dose: 2 mg Documented by: Risperidone (Risperidone 0.25 Mg Tab) 0.25 mg PO DAILY GIFTY Risperidone (Risperidone 1 Mg Tab) 1 mg PO BEDTIME GIFTY - Exam Urinary Catheter Total Time: 0Days 19Hours Physical Findings Comments:: General: Lethargic (does not respond to verbal stimuli but barely to pain stimuli) HEENT: Conjunctiva Clear, Mucosa Moist & Big Arm Neck: Trachea Midline. No: Lymphadenopathy, JVD Lungs: Clear to Auscultation, Decreased Breath Sounds Cardiovascular: Regular Rate, Regular Rhythm, Tachycardia GI/Abdominal Exam: Normal Bowel Sounds, Soft, No Organomegaly, No Distention Extremities: Normal Inspection, No Pedal Edema Neurological: Reflexes Equal Bilateral Neuro Extensive - Mental Status: Disorientation to Person, Disorientation to Place, Disorientation to Time, might be responsive to pain stimuli Psychiatric: Other (Unable to complete due to AMS) - Patient Data Lab Results Last 24 hrs: Laboratory Results - last 24 hr 01/02/21 01/02/21 01/02/21 Range/Units 14:43 15:40 15:40 WBC (4.23-9.07) K/mm3 RBC (4.63-6.08) M/mm3 Hgb (13.7-17.5) gm/dl Hct (40.1-51.0) % MCV (79.0-92.2) fl MCH (25.7-32.2) pg MCHC (32.2-35.5) g/dl RDW Std Deviation (35.1-43.9) fL Plt Count (163-337) K/mm3 MPV (9.4-12.3) fl Neut % (Auto) (34.0-67.9) % Lymph % (Auto) (21.8-53.1) % [place] % (Auto) (5.3-12.2) % Eos % (Auto) (0.8-7.0) Baso % (Auto) (0.1-1.2) % Neut # (Auto) (1.78-5.38) K/mm3 Lymph # (Auto) (1.32-3.57) K/mm3 [place] # (Auto) (0.30-0.82) K/mm3 Eos # (Auto) (0.04-0.54) K/mm3 Baso # (Auto) (0.01-0.08) K/mm3 Manual Slide Review D-Dimer, Quantitative (0.19-0.50) mg/L Puncture Site Lt radial ABG pH 7.28 L (7.35-7.45) ABG pCO2 71.3 H* (35.0-45.0) mmHg ABG pO2 62.0 L (80.0-100.0) mmHg ABG HCO3 32.3 H (22.0-26.0) meq/L ABG O2 Saturation 84.7 L (96.0-97.0) % ABG Base Excess 3.1 H (-2-2.0) Elliott Test Positive O2 Delivery Device Oxymask Oxygen Flow Rate 15.0 Sodium (136-145) mEq/L Potassium (3.5-5.1) mEq/L Chloride (98-107) mEq/L Carbon Dioxide (21-32) mEq/L Anion Gap (5-15) BUN (7-18) mg/dL Creatinine (0.7-1.3) mg/dL Est Cr Clr Drug Dosing mL/min Estimated GFR (MDRD) (>60) mL/min BUN/Creatinine Ratio (14-18) Glucose (70-99) mg/dL POC Glucose (70-99) mg/dL Lactic Acid 1.8 (0.4-2.0) mmol/L Calcium (8.5-10.1) mg/dL Magnesium 2.5 H (1.8-2.4) mg/dL Total Bilirubin (0.2-1.0) mg/dL AST (15-37) U/L ALT (16-63) U/L Alkaline Phosphatase (46-116) U/L Troponin I 0.062 H* (0.00-0.056) ng/mL C-Reactive Protein (<1.0) mg/dL NT-Pro-B Natriuret Pep (0-125) pg/mL Total Protein (6.4-8.2) g/dl Albumin (3.4-5.0) g/dl Globulin gm/dL Albumin/Globulin Ratio (1-2) 01/02/21 01/02/21 01/02/21 Range/Units 15:40 15:40 15:40 WBC (4.23-9.07) K/mm3 RBC (4.63-6.08) M/mm3 Hgb (13.7-17.5) gm/dl Hct (40.1-51.0) % MCV (79.0-92.2) fl MCH (25.7-32.2) pg MCHC (32.2-35.5) g/dl RDW Std Deviation (35.1-43.9) fL Plt Count (163-337) K/mm3 MPV (9.4-12.3) fl Neut % (Auto) (34.0-67.9) % Lymph % (Auto) (21.8-53.1) % [place] % (Auto) (5.3-12.2) % Eos % (Auto) (0.8-7.0) Baso % (Auto) (0.1-1.2) % Neut # (Auto) (1.78-5.38) K/mm3 Lymph # (Auto) (1.32-3.57) K/mm3 [place] # (Auto) (0.30-0.82) K/mm3 Eos # (Auto) (0.04-0.54) K/mm3 Baso # (Auto) (0.01-0.08) K/mm3 Manual Slide Review D-Dimer, Quantitative 2.49 H (0.19-0.50) mg/L Puncture Site ABG pH (7.35-7.45) ABG pCO2 (35.0-45.0) mmHg ABG pO2 (80.0-100.0) mmHg ABG HCO3 (22.0-26.0) meq/L ABG O2 Saturation (96.0-97.0) % ABG Base Excess (-2-2.0) Elliott Test O2 Delivery Device Oxygen Flow Rate Sodium 152 H (136-145) mEq/L Potassium 3.2 L (3.5-5.1) mEq/L Chloride 112 H (98-107) mEq/L Carbon Dioxide 34 H (21-32) mEq/L Anion Gap 9.2 (5-15) BUN 38 H (7-18) mg/dL Creatinine 1.6 H (0.7-1.3) mg/dL Est Cr Clr Drug Dosing 40.74 mL/min Estimated GFR (MDRD) 43 (>60) mL/min BUN/Creatinine Ratio 23.8 H (14-18) Glucose 156 H (70-99) mg/dL POC Glucose (70-99) mg/dL Lactic Acid (0.4-2.0) mmol/L Calcium 8.6 (8.5-10.1) mg/dL Magnesium (1.8-2.4) mg/dL Total Bilirubin (0.2-1.0) mg/dL AST (15-37) U/L ALT (16-63) U/L Alkaline Phosphatase (46-116) U/L Troponin I (0.00-0.056) ng/mL C-Reactive Protein (<1.0) mg/dL NT-Pro-B Natriuret Pep 1064 H (0-125) pg/mL Total Protein (6.4-8.2) g/dl Albumin (3.4-5.0) g/dl Globulin gm/dL Albumin/Globulin Ratio (1-2) 01/02/21 01/02/21 01/02/21 Range/Units 17:24 20:15 23:02 WBC (4.23-9.07) K/mm3 RBC (4.63-6.08) M/mm3 Hgb (13.7-17.5) gm/dl Hct (40.1-51.0) % MCV (79.0-92.2) fl MCH (25.7-32.2) pg MCHC (32.2-35.5) g/dl RDW Std Deviation (35.1-43.9) fL Plt Count (163-337) K/mm3 MPV (9.4-12.3) fl Neut % (Auto) (34.0-67.9) % Lymph % (Auto) (21.8-53.1) % [place] % (Auto) (5.3-12.2) % Eos % (Auto) (0.8-7.0) Baso % (Auto) (0.1-1.2) % Neut # (Auto) (1.78-5.38) K/mm3 Lymph # (Auto) (1.32-3.57) K/mm3 [place] # (Auto) (0.30-0.82) K/mm3 Eos # (Auto) (0.04-0.54) K/mm3 Baso # (Auto) (0.01-0.08) K/mm3 Manual Slide Review D-Dimer, Quantitative (0.19-0.50) mg/L Puncture Site ABG pH (7.35-7.45) ABG pCO2 (35.0-45.0) mmHg ABG pO2 (80.0-100.0) mmHg ABG HCO3 (22.0-26.0) meq/L ABG O2 Saturation (96.0-97.0) % ABG Base Excess (-2-2.0) Elliott Test O2 Delivery Device Oxygen Flow Rate Sodium (136-145) mEq/L Potassium (3.5-5.1) mEq/L Chloride (98-107) mEq/L Carbon Dioxide (21-32) mEq/L Anion Gap (5-15) BUN (7-18) mg/dL Creatinine (0.7-1.3) mg/dL Est Cr Clr Drug Dosing mL/min Estimated GFR (MDRD) (>60) mL/min BUN/Creatinine Ratio (14-18) Glucose (70-99) mg/dL POC Glucose 150 H 167 H (70-99) mg/dL Lactic Acid (0.4-2.0) mmol/L Calcium (8.5-10.1) mg/dL Magnesium (1.8-2.4) mg/dL Total Bilirubin (0.2-1.0) mg/dL AST (15-37) U/L ALT (16-63) U/L Alkaline Phosphatase (46-116) U/L Troponin I 0.102 H* (0.00-0.056) ng/mL C-Reactive Protein (<1.0) mg/dL NT-Pro-B Natriuret Pep (0-125) pg/mL Total Protein (6.4-8.2) g/dl Albumin (3.4-5.0) g/dl Globulin gm/dL Albumin/Globulin Ratio (1-2) 09/21/21 09/21/21 09/21/21 Range/Units 05:50 05:50 05:55 WBC 28.90 H (4.23-9.07) K/mm3 RBC 4.69 (4.63-6.08) M/mm3 Hgb 15.2 D (13.7-17.5) gm/dl Hct 48.8 (40.1-51.0) % MCV 104.1 H D (79.0-92.2) fl MCH 32.4 H (25.7-32.2) pg MCHC 31.1 L (32.2-35.5) g/dl RDW Std Deviation 52.3 H (35.1-43.9) fL Plt Count 328 D (163-337) K/mm3 MPV 11.8 (9.4-12.3) fl Neut % (Auto) 89.6 H (34.0-67.9) % Lymph % (Auto) 2.9 L (21.8-53.1) % [place] % (Auto) 6.9 (5.3-12.2) % Eos % (Auto) 0 L (0.8-7.0) Baso % (Auto) 0.1 (0.1-1.2) % Neut # (Auto) 25.88 H (1.78-5.38) K/mm3 Lymph # (Auto) 0.85 L (1.32-3.57) K/mm3 [place] # (Auto) 2.00 H (0.30-0.82) K/mm3 Eos # (Auto) 0.00 L (0.04-0.54) K/mm3 Baso # (Auto) 0.02 (0.01-0.08) K/mm3 Manual Slide Review Abnormal smear D-Dimer, Quantitative (0.19-0.50) mg/L Puncture Site ABG pH (7.35-7.45) ABG pCO2 (35.0-45.0) mmHg ABG pO2 (80.0-100.0) mmHg ABG HCO3 (22.0-26.0) meq/L ABG O2 Saturation (96.0-97.0) % ABG Base Excess (-2-2.0) Elliott Test O2 Delivery Device Oxygen Flow Rate Sodium 155 H (136-145) mEq/L Potassium 2.9 L (3.5-5.1) mEq/L Chloride 115 H (98-107) mEq/L Carbon Dioxide 33 H (21-32) mEq/L Anion Gap 9.9 (5-15) BUN 39 H (7-18) mg/dL Creatinine 1.7 H (0.7-1.3) mg/dL Est Cr Clr Drug Dosing 38.34 mL/min Estimated GFR (MDRD) 40 (>60) mL/min BUN/Creatinine Ratio 22.9 H (14-18) Glucose 188 H (70-99) mg/dL POC Glucose 170 H (70-99) mg/dL Lactic Acid (0.4-2.0) mmol/L Calcium 8.9 (8.5-10.1) mg/dL Magnesium (1.8-2.4) mg/dL Total Bilirubin 0.8 (0.2-1.0) mg/dL AST 19 (15-37) U/L ALT 26 (16-63) U/L Alkaline Phosphatase 54 (46-116) U/L Troponin I 0.114 H* (0.00-0.056) ng/mL C-Reactive Protein 16.7 H* (<1.0) mg/dL NT-Pro-B Natriuret Pep (0-125) pg/mL Total Protein 6.8 (6.4-8.2) g/dl Albumin 2.5 L (3.4-5.0) g/dl Globulin 4.3 gm/dL Albumin/Globulin Ratio 0.6 L (1-2) 01/03/21 01/03/21 Range/Units 11:25 13:30 WBC (4.23-9.07) K/mm3 RBC (4.63-6.08) M/mm3 Hgb (13.7-17.5) gm/dl Hct (40.1-51.0) % MCV (79.0-92.2) fl MCH (25.7-32.2) pg MCHC (32.2-35.5) g/dl RDW Std Deviation (35.1-43.9) fL Plt Count (163-337) K/mm3 MPV (9.4-12.3) fl Neut % (Auto) (34.0-67.9) % Lymph % (Auto) (21.8-53.1) % [place] % (Auto) (5.3-12.2) % Eos % (Auto) (0.8-7.0) Baso % (Auto) (0.1-1.2) % Neut # (Auto) (1.78-5.38) K/mm3 Lymph # (Auto) (1.32-3.57) K/mm3 [place] # (Auto) (0.30-0.82) K/mm3 Eos # (Auto) (0.04-0.54) K/mm3 Baso # (Auto) (0.01-0.08) K/mm3 Manual Slide Review D-Dimer, Quantitative (0.19-0.50) mg/L Puncture Site ABG pH (7.35-7.45) ABG pCO2 (35.0-45.0) mmHg ABG pO2 (80.0-100.0) mmHg ABG HCO3 (22.0-26.0) meq/L ABG O2 Saturation (96.0-97.0) % ABG Base Excess (-2-2.0) Elliott Test O2 Delivery Device Oxygen Flow Rate Sodium (136-145) mEq/L Potassium (3.5-5.1) mEq/L Chloride (98-107) mEq/L Carbon Dioxide (21-32) mEq/L Anion Gap (5-15) BUN (7-18) mg/dL Creatinine (0.7-1.3) mg/dL Est Cr Clr Drug Dosing mL/min Estimated GFR (MDRD) (>60) mL/min BUN/Creatinine Ratio (14-18) Glucose (70-99) mg/dL POC Glucose 158 H (70-99) mg/dL Lactic Acid (0.4-2.0) mmol/L Calcium (8.5-10.1) mg/dL Magnesium (1.8-2.4) mg/dL Total Bilirubin (0.2-1.0) mg/dL AST (15-37) U/L ALT (16-63) U/L Alkaline Phosphatase (46-116) U/L Troponin I 0.162 H* (0.00-0.056) ng/mL C-Reactive Protein (<1.0) mg/dL NT-Pro-B Natriuret Pep (0-125) pg/mL Total Protein (6.4-8.2) g/dl Albumin (3.4-5.0) g/dl Globulin gm/dL Albumin/Globulin Ratio (1-2) Result Diagrams: 01/03/21 05:50 01/03/21 05:50 Raj Results Last 24 hrs: Microbiology 01/01/21 23:40 Blood Culture - Preliminary Blood - Venous - Lab Draw 01/01/21 23:25 Blood Culture - Preliminary Blood - Venous 01/02/21 00:15 Urine Culture - Final Urine Sepsis Event Note - Evaluation Sepsis Screening Result: Severe Sepsis Risk - Focused Exam Vital Signs: Vital Signs Temp Pulse Resp BP BP BP Pulse Ox 01/03/21 10:00 36.6 C 30 H 142/79 H 94 L 01/03/21 08:25 120 H 159/93 H 01/03/21 07:59 01/03/21 06:33 36.7 C 28 H 94 L 01/03/21 06:26 33 H 151/96 H 94 L 01/03/21 05:55 01/03/21 05:01 157/87 H 01/03/21 05:00 29 H 96 01/03/21 04:21 127 H 147/91 H 01/03/21 04:00 37.0 C 30 H 148/91 H 94 L Pulse Ox 01/03/21 10:00 01/03/21 08:25 01/03/21 07:59 94 L 01/03/21 06:33 01/03/21 06:26 01/03/21 05:55 94 L 01/03/21 05:01 01/03/21 05:00 01/03/21 04:21 01/03/21 04:00 - Problem List Review Problem List Initiated/Reviewed/Updated: Yes - My Orders Last 24 Hours: My Active Orders 01/02/21 14:21 Intake and Output [RC] Q2HR 01/02/21 14:22 Pulse Oximetry [RC] CONTINUOUS 01/02/21 14:36 Urinary Catheter Assessment [RC] Q4H 01/02/21 14:37 hydrALAZINE [Apresoline] 10 mg IVPUSH Q4H PRN 01/02/21 14:45 Brunson Catheter Insertion [Insert Urinary Catheter] [OM.PC] Q24H 01/02/21 15:05 Patient Status [ADT] Routine 01/02/21 15:11 Code Status [Resuscitation Status] Routine 01/02/21 15:51 RT BiPAP/CPAP [RC] ASDIRECTED 01/02/21 16:30 Enoxaparin [Lovenox] 80 mg SUBCUT BID 01/02/21 16:51 Accu Check [Blood Glucose Check, Bedside] [RC] Q6HR 01/02/21 Dinner Nothing per Oral Now Diet [DIET] 01/02/21 21:00 Docusate Sodium [Colace] 100 mg PO BID Memantine [Namenda] 10 mg PO BID 01/03/21 00:00 Piperacillin/Tazobactam [Piperacil-Tazobact] 4.5 gm Sodium Chloride 0.9% [Normal Saline] 100 ml IV Q8H 01/03/21 06:00 Pantoprazole [ProTONIX] 40 mg PO ACBREAKFAST 01/03/21 09:00 Cholecalciferol (Vitamin D3) [Vitamin D3] 25 mcg PO DAILY Potassium Chloride 20 meq Dextrose 5% in Water 1,000 ml IV Q10H buPROPion [Wellbutrin XL] 150 mg PO DAILY 01/03/21 18:00 TROPONIN I [CHEM] Routine 01/03/21 21:00 atorvaSTATin [Lipitor] 40 mg PO BEDTIME 01/04/21 05:00 C-REACTIVE PROTEIN [CHEM] DAILY CBC WITH AUTO DIFF [HEME] DAILY COMPREHENSIVE METABOLIC PN,CMP [CHEM] DAILY 01/05/21 05:00 C-REACTIVE PROTEIN [CHEM] DAILY CBC WITH AUTO DIFF [HEME] DAILY COMPREHENSIVE METABOLIC PN,CMP [CHEM] DAILY 01/06/21 05:00 C-REACTIVE PROTEIN [CHEM] DAILY CBC WITH AUTO DIFF [HEME] DAILY COMPREHENSIVE METABOLIC PN,CMP [CHEM] DAILY 01/07/21 05:00 C-REACTIVE PROTEIN [CHEM] DAILY CBC WITH AUTO DIFF [HEME] DAILY COMPREHENSIVE METABOLIC PN,CMP [CHEM] DAILY - Plan Plan:: Patient is a 70-year-old male with a history of diabetes and Alzheimer's dementia who was brought to the ER from [facility] due to altered mental status. AMS Etiology unknown. Could be due to sepsis, metabolic events, TIA/stroke CT of head Brunson catheter (sister agreed to have brunson) Alzheimer's dementia Continue home medication memantine Acute hypoxic and hypercapnic respiratory failure Patient had been on 2 L since the positive Covid 19 test 10 days ago until yesterday he needs more oxygen. ABG - ph 7.28, pCO2 71 Bipap prn to keep PCO2 < 50 and SPO2 > 90% Etiology for CO2 retention unknown. CT of chest was ordered but is not able to do due to patient condition and BiPAP Troponin-mild elevation BNP 1064 Sepsis 2nd to UTI Tachycardia and tachypnea Continue IV fluid IV antibiotic Blood culture Urine culture UTI Urinalysis compatible with UTI Zosyn 2.25 g every 6 hour Positive Covid 19 Had a positive COVID-19 test that came days ago I would not like to initiate remdesivir at this moment I would not like you to initiate a steroid at this moment since he has bacterial sepsis D-dimer elevated. I will initiate Lovenox 80 mg twice daily Inhalers Chest x-ray-no acute change Chest CT was ordered Dehydration 3 L normal saline were given in the ER Continue IV fluid ASHLEY, creatinine 1.3 on 12/22/2020 Etiologies including prerenal cause, sepsis, ATN Avoid nephrotoxic meds and contrast Repeat renal function in the morning disposition Elevation of D-dimer Could be due to COVID-19 infection or thromboembolic events Lovenox 80 mg twice daily Elevation of troponin 0.102-> 0.114-> 0.162 BNP 1064 Echocardiogram Discussed with sister Gaby (POA) who refused to transfer him to higher level hospital. Aspirin and Lipitor (but patient is not able to take the oral medications) Nutrition Sister Gaby would like to initiate the nutrition for him I feel that NG tube would increase the risk for aspiration. She agreed to have TPN DVT prophylaxis: Lovenox CODE STATUS: DNR/DNI Discussed with Sister Gaby who initially would like to have CPR only but she called us back later she and her family would like to have DNR/DNI. Disposition: Greater than 2 midnights
[2021-01-03] MEDS: atorvaSTATin 40 MG Tab PO SCH (22:30)
[2021-01-04] MEDS: Piperacillin/Tazobactam 4.5 GM in Sodium Chloride 0.9% 100 ML IV SCH ×3 (04:25→20:32)
[2021-01-04] MEDS: Docusate Sodium 100 MG Cap PO SCH ×2 (08:30→20:43)
[2021-01-04] MEDS: Pantoprazole 40 MG Tab.CR PO SCH (08:30)
[2021-01-04] MEDS: Memantine 10 MG Tab PO SCH ×2 (08:30→20:44)
[2021-01-04] MEDS: Cholecalciferol (Vitamin D3) 25 MCG Tab PO SCH (08:30)
[2021-01-04] MEDS: buPROPion 150 MG Tab.ER PO SCH (08:31)
[2021-01-04] MEDS: Enoxaparin 80 MG/0.8 ML Syringe SUBCUT SCH ×2 (08:42→20:31)
--- NOTE | 2021-01-04 11:25 | CR ---
Chest: Frontal view of the chest was obtained centered to the right side. Comparison: Prior chest x-ray performed earlier on the same day (10:10 AM). Right-sided PICC line is seen. Tip lies within the superior vena cava in satisfactory position. Heart size and mediastinum are within normal limits. No acute parenchymal change is definitely seen. Bony structures are unchanged. Impression: 1. Satisfactory position of PICC line. 2. Nothing acute is otherwise appreciated on frontal chest x-ray. Diagnostic code #2
--- NOTE | 2021-01-04 11:27 | PCM.SN.2 ---
- Free Text/Narrative Note: PICC Line Insertion Date:01/04/2021 Start: 914 Stop: [address] Brenner for PICC placement for retirement nutrition use. Chart reviewed. Patient educated. POA agrees to proceed. Consent signed. Site cleansed with ChloraPrep. Right arm prepped with chloraprep x 3. Lidocaine 1% local anesthetic injected prior to 20ga IV catheter insertion. Sterile gown, gloves and drape used. 4fr Gro[place]ong NXT ClearVue PICC inserted in the Right arm at 50 cm at the skin per sterile technique with ultrasound guidance. Total catheter length 60 cm. Secured with statlock. Flushes well with NaCl with good blood return. Dressed with transparent dressing with CHG. PICC catheter remains out for measurement purposes. Chest Xray taken. Confirmation pending per radiology. Des Adames CRNA Time Documentation
[2021-01-04] MEDS: Albuterol/Ipratropium 3.0-0.5 MG/3 ML Neb Soln NEB PRN ×3 (11:47→20:34)
--- NOTE | 2021-01-04 11:51 | PCM.PN ---
- General Info Date of Service: 01/04/21 Admission Dx/Problem (Free Text): Admission Diagnosis/Problem Admission Diagnosis/Problem Hypoxia Subjective Update: Patient is a 70-year-old male with a history of diabetes and Alzheimer's dementia who was brought to the ER from [facility] due to altered mental status. Patient seems to be more responsive to pain stimuli. He opens eye but does not respond to veral stimuli. He still has tachycardia. BP is improving. Good urine output. Creatinine is trending down to 1.5 today from 1.7 yesterday. He still on BIPAP - Review of Systems Systems Review Comment:: Unable to obtain due to AMS - Patient Data Vitals - Most Recent: Last Vital Signs Temp 36.6 C 01/04/21 04:00 Pulse 115 H 01/04/21 08:00 Resp 23 H 01/04/21 08:00 BP 136/94 H 01/04/21 08:00 Pulse Ox 94 L 01/04/21 08:00 Weight - Most Recent: 90.764 kg I&O - Last 24 Hours: Intake & Output 01/03/21 01/04/21 01/04/21 22:59 06:59 14:59 Intake Total 770 1239 Output Total 565 450 175 Balance 205 789 -175 Lab Results Last 24 Hours: Laboratory Results - last 24 hr 01/03/21 01/03/21 01/03/21 Range/Units 13:30 17:52 17:52 WBC (4.23-9.07) K/mm3 RBC (4.63-6.08) M/mm3 Hgb (13.7-17.5) gm/dl Hct (40.1-51.0) % MCV (79.0-92.2) fl MCH (25.7-32.2) pg MCHC (32.2-35.5) g/dl RDW Std Deviation (35.1-43.9) fL Plt Count (163-337) K/mm3 MPV (9.4-12.3) fl Neut % (Auto) (34.0-67.9) % Lymph % (Auto) (21.8-53.1) % [place] % (Auto) (5.3-12.2) % Eos % (Auto) (0.8-7.0) Baso % (Auto) (0.1-1.2) % Neut # (Auto) (1.78-5.38) K/mm3 Lymph # (Auto) (1.32-3.57) K/mm3 [place] # (Auto) (0.30-0.82) K/mm3 Eos # (Auto) (0.04-0.54) K/mm3 Baso # (Auto) (0.01-0.08) K/mm3 Manual Slide Review Sodium (136-145) mEq/L Potassium (3.5-5.1) mEq/L Chloride (98-107) mEq/L Carbon Dioxide (21-32) mEq/L Anion Gap (5-15) BUN (7-18) mg/dL Creatinine (0.7-1.3) mg/dL Est Cr Clr Drug Dosing mL/min Estimated GFR (MDRD) (>60) mL/min BUN/Creatinine Ratio (14-18) Glucose (70-99) mg/dL POC Glucose (70-99) mg/dL Calcium (8.5-10.1) mg/dL Magnesium 2.6 H (1.8-2.4) mg/dL Total Bilirubin (0.2-1.0) mg/dL AST (15-37) U/L ALT (16-63) U/L Alkaline Phosphatase (46-116) U/L Troponin I 0.162 H* 0.108 H* (0.00-0.056) ng/mL C-Reactive Protein (<1.0) mg/dL Total Protein (6.4-8.2) g/dl Albumin (3.4-5.0) g/dl Globulin gm/dL Albumin/Globulin Ratio (1-2) 01/03/21 01/03/21 01/04/21 Range/Units 19:27 23:44 07:00 WBC (4.23-9.07) K/mm3 RBC (4.63-6.08) M/mm3 Hgb (13.7-17.5) gm/dl Hct (40.1-51.0) % MCV (79.0-92.2) fl MCH (25.7-32.2) pg MCHC (32.2-35.5) g/dl RDW Std Deviation (35.1-43.9) fL Plt Count (163-337) K/mm3 MPV (9.4-12.3) fl Neut % (Auto) (34.0-67.9) % Lymph % (Auto) (21.8-53.1) % [place] % (Auto) (5.3-12.2) % Eos % (Auto) (0.8-7.0) Baso % (Auto) (0.1-1.2) % Neut # (Auto) (1.78-5.38) K/mm3 Lymph # (Auto) (1.32-3.57) K/mm3 [place] # (Auto) (0.30-0.82) K/mm3 Eos # (Auto) (0.04-0.54) K/mm3 Baso # (Auto) (0.01-0.08) K/mm3 Manual Slide Review Sodium (136-145) mEq/L Potassium (3.5-5.1) mEq/L Chloride (98-107) mEq/L Carbon Dioxide (21-32) mEq/L Anion Gap (5-15) BUN (7-18) mg/dL Creatinine (0.7-1.3) mg/dL Est Cr Clr Drug Dosing mL/min Estimated GFR (MDRD) (>60) mL/min BUN/Creatinine Ratio (14-18) Glucose (70-99) mg/dL POC Glucose 104 H 157 H 155 H (70-99) mg/dL Calcium (8.5-10.1) mg/dL Magnesium (1.8-2.4) mg/dL Total Bilirubin (0.2-1.0) mg/dL AST (15-37) U/L ALT (16-63) U/L Alkaline Phosphatase (46-116) U/L Troponin I (0.00-0.056) ng/mL C-Reactive Protein (<1.0) mg/dL Total Protein (6.4-8.2) g/dl Albumin (3.4-5.0) g/dl Globulin gm/dL Albumin/Globulin Ratio (1-2) 01/04/21 01/04/21 Range/Units 07:05 07:05 WBC 20.71 H (4.23-9.07) K/mm3 RBC 4.64 (4.63-6.08) M/mm3 Hgb 15.5 (13.7-17.5) gm/dl Hct 46.0 (40.1-51.0) % MCV 99.1 H (79.0-92.2) fl MCH 33.4 H (25.7-32.2) pg MCHC 33.7 (32.2-35.5) g/dl RDW Std Deviation 50.0 H (35.1-43.9) fL Plt Count 236 D (163-337) K/mm3 MPV 11.9 (9.4-12.3) fl Neut % (Auto) 91.9 H (34.0-67.9) % Lymph % (Auto) 2.8 L (21.8-53.1) % [place] % (Auto) 4.8 L (5.3-12.2) % Eos % (Auto) 0 L (0.8-7.0) Baso % (Auto) 0.1 (0.1-1.2) % Neut # (Auto) 19.02 H (1.78-5.38) K/mm3 Lymph # (Auto) 0.59 L (1.32-3.57) K/mm3 [place] # (Auto) 1.00 H (0.30-0.82) K/mm3 Eos # (Auto) 0.00 L (0.04-0.54) K/mm3 Baso # (Auto) 0.02 (0.01-0.08) K/mm3 Manual Slide Review Abnormal smear Sodium 153 H (136-145) mEq/L Potassium 2.9 L (3.5-5.1) mEq/L Chloride 115 H (98-107) mEq/L Carbon Dioxide 32 (21-32) mEq/L Anion Gap 8.9 (5-15) BUN 41 H (7-18) mg/dL Creatinine 1.5 H (0.7-1.3) mg/dL Est Cr Clr Drug Dosing 43.45 mL/min Estimated GFR (MDRD) 46 (>60) mL/min BUN/Creatinine Ratio 27.3 H (14-18) Glucose 189 H (70-99) mg/dL POC Glucose (70-99) mg/dL Calcium 9.2 (8.5-10.1) mg/dL Magnesium (1.8-2.4) mg/dL Total Bilirubin 1.4 H (0.2-1.0) mg/dL AST 21 (15-37) U/L ALT 20 (16-63) U/L Alkaline Phosphatase 57 (46-116) U/L Troponin I (0.00-0.056) ng/mL C-Reactive Protein 14.0 H* (<1.0) mg/dL Total Protein 6.7 (6.4-8.2) g/dl Albumin 2.2 L (3.4-5.0) g/dl Globulin 4.5 gm/dL Albumin/Globulin Ratio 0.5 L (1-2) Raj Results Last 24 Hours: Microbiology 01/01/21 23:40 Blood Culture - Preliminary Blood - Venous - Lab Draw 01/01/21 23:25 Blood Culture - Preliminary Blood - Venous 01/02/21 00:15 Urine Culture - Final Urine Med Orders - Current: Current Medications Acetaminophen (Acetaminophen 325 Mg Tab) 650 mg PO Q6H PRN PRN Reason: Pain (Mild 1-3)/fever Albuterol/Ipratropium (Albuterol/Ipratropium 3.0-0.5 Mg/3 Ml Neb Soln) 3 ml NEB Q4H PRN PRN Reason: Shortness Of Breath/wheezing Last Admin: 01/03/21 20:06 Dose: 3 ml Documented by: Atorvastatin Calcium (Atorvastatin 40 Mg Tab) 40 mg PO BEDTIME [facility] Last Admin: 01/03/21 22:30 Dose: Not Given Documented by: Bupropion HCl (Bupropion 150 Mg Tab.Er) 150 mg PO DAILY [facility] Last Admin: 01/04/21 08:31 Dose: Not Given Documented by: Cholecalciferol (Cholecalciferol (Vitamin D3) 25 Mcg Tab) 25 mcg PO DAILY [facility] Last Admin: 01/04/21 08:30 Dose: Not Given Documented by: Docusate Sodium (Docusate Sodium 100 Mg Cap) 100 mg PO BID [facility] Last Admin: 01/04/21 08:30 Dose: Not Given Documented by: Enoxaparin Sodium (Enoxaparin 80 Mg/0.8 Ml Syringe) 80 mg SUBCUT BID [facility] Last Admin: 01/04/21 08:42 Dose: 80 mg Documented by: Hydralazine HCl (Hydralazine 20 Mg/Ml Sdv) 10 mg IVPUSH Q4H PRN PRN Reason: Hypertension Last Admin: 01/02/21 22:07 Dose: 10 mg Documented by: Promethazine HCl 12.5 mg/ (Sodium Chloride) 50.5 mls @ 100 mls/hr IV Q6H PRN PRN Reason: Nausea/Vomiting Piperacillin Sod/Tazobactam (Sod 4.5 gm/ Sodium Chloride) 100 mls @ 25 mls/hr IV Q8H [facility] Last Admin: 01/04/21 04:25 Dose: 25 mls/hr Documented by: Potassium Chloride 20 meq/ (Dextrose/Water) 1,010 mls @ 150 mls/hr IV Q6H [facility] Memantine (Memantine 10 Mg Tab) 10 mg PO BID [facility] Last Admin: 01/04/21 08:30 Dose: Not Given Documented by: Metoprolol Tartrate (Metoprolol Tartrate 5 Mg/5 Ml Sdv) 5 mg IVPUSH Q4H PRN PRN Reason: Tachycardia Pantoprazole Sodium (Pantoprazole 40 Mg Tab.Cr) 40 mg PO ACBREAKFAST [facility] Last Admin: 01/04/21 08:30 Dose: Not Given Documented by: Sodium Chloride (Sodium Chloride 0.9% 10 Ml Syringe) 10 ml FLUSH ASDIRECTED PRN PRN Reason: Keep Vein Open Last Admin: 01/01/21 23:57 Dose: 10 ml Documented by: Discontinued Medications Albuterol/Ipratropium (Albuterol/Ipratropium 3.0-0.5 Mg/3 Ml Neb Soln) 3 ml NEB ONETIME ONE Stop: 01/01/21 23:15 Last Admin: 01/01/21 23:37 Dose: 3 ml Documented by: Dexamethasone (Dexamethasone 4 Mg/Ml Sdv) 6 mg IVPUSH ONETIME ONE Stop: 01/01/21 23:14 Last Admin: 01/01/21 23:57 Dose: 6 mg Documented by: Heparin Sodium (Porcine) (Heparin Sodium 5,000 Units/Ml Vial) 5,000 units SUBCUT Q8H [facility] Last Admin: 01/02/21 15:17 Dose: 5,000 units Documented by: Sodium Chloride (Normal Saline) 1,000 mls @ 125 mls/hr IV ASDIRECTED [facility] Last Admin: 01/01/21 23:56 Dose: 125 mls/hr Documented by: Sodium Chloride (Normal Saline) 1,000 mls @ 1,000 mls/hr IV ONETIME ONE Stop: 01/02/21 01:02 Last Admin: 01/02/21 00:17 Dose: 1,000 mls/hr Documented by: Ceftriaxone Sodium 2 gm/ (Sodium Chloride) 100 mls @ 200 mls/hr IV ONETIME ONE Stop: 01/02/21 01:26 Last Admin: 01/02/21 01:17 Dose: 200 mls/hr Documented by: Sodium Chloride (Normal Saline) 1,000 mls @ 1,000 mls/hr IV ONETIME ONE Stop: 01/02/21 02:10 Last Admin: 01/02/21 01:18 Dose: 1,000 mls/hr Documented by: Lactated Ringer's (Ringers, Lactated) 1,000 mls @ 1,000 mls/hr IV .BOLUS ONE Stop: 01/02/21 02:10 Last Admin: 01/02/21 02:52 Dose: 1,000 mls/hr Documented by: Ceftriaxone Sodium 1 gm/ (Sodium Chloride) 100 mls @ 200 mls/hr IV Q24H [facility] Potassium Chloride/Sodium Chloride (Normal Saline With 20 Meq Kcl) 1,000 mls @ 75 mls/hr IV ASDIRECTED [facility] Last Admin: 01/02/21 15:20 Dose: 75 mls/hr Documented by: Piperacillin Sod/Tazobactam (Sod 4.5 gm/ Sodium Chloride) 100 mls @ 200 mls/hr IV ONETIME ONE Stop: 01/02/21 16:29 Last Admin: 01/02/21 15:26 Dose: 200 mls/hr Documented by: Piperacillin Sod/Tazobactam (Sod 4.5 gm/ Sodium Chloride) 100 mls @ 25 mls/hr IV Q8H [facility] Last Admin: 01/03/21 19:47 Dose: 25 mls/hr Documented by: Potassium Cl/Dextrose/Lact Ringer's (D5 Lr With 20 Meq Kcl) 1,000 mls @ 65 mls/hr IV ASDIRECTED [facility] Last Admin: 01/02/21 17:29 Dose: 65 mls/hr Documented by: Potassium Chloride 20 meq/ (Dextrose/Water) 1,010 mls @ 101 mls/hr IV ASDIREC DEANGELO [facility] Potassium Chloride 20 meq/ (Dextrose/Water) 1,010 mls @ 101 mls/hr IV Q10H [facility] Last Admin: 01/03/21 23:47 Dose: 101 mls/hr Documented by: Metoprolol Tartrate (Metoprolol Tartrate 5 Mg/5 Ml Sdv) 2.5 mg IVPUSH Q2H PRN PRN Reason: Tachycardia Last Admin: 01/03/21 08:25 Dose: 2.5 mg Documented by: Morphine Sulfate (Morphine 2 Mg/Ml Syringe) 2 mg IVPUSH Q4H PRN PRN Reason: Pain (severe 7-10) Stop: 01/03/21 14:24 Last Admin: 01/02/21 22:49 Dose: 2 mg Documented by: Risperidone (Risperidone 0.25 Mg Tab) 0.25 mg PO DAILY [facility] Risperidone (Risperidone 1 Mg Tab) 1 mg PO BEDTIME [facility] - Exam Central Line Total Time: 0Days 2Hours Urinary Catheter Total Time: 1Days 17Hours - Patient Data Lab Results Last 24 hrs: Laboratory Results - last 24 hr 01/03/21 01/03/21 01/03/21 Range/Units 13:30 17:52 17:52 WBC (4.23-9.07) K/mm3 RBC (4.63-6.08) M/mm3 Hgb (13.7-17.5) gm/dl Hct (40.1-51.0) % MCV (79.0-92.2) fl MCH (25.7-32.2) pg MCHC (32.2-35.5) g/dl RDW Std Deviation (35.1-43.9) fL Plt Count (163-337) K/mm3 MPV (9.4-12.3) fl Neut % (Auto) (34.0-67.9) % Lymph % (Auto) (21.8-53.1) % [place] % (Auto) (5.3-12.2) % Eos % (Auto) (0.8-7.0) Baso % (Auto) (0.1-1.2) % Neut # (Auto) (1.78-5.38) K/mm3 Lymph # (Auto) (1.32-3.57) K/mm3 [place] # (Auto) (0.30-0.82) K/mm3 Eos # (Auto) (0.04-0.54) K/mm3 Baso # (Auto) (0.01-0.08) K/mm3 Manual Slide Review Sodium (136-145) mEq/L Potassium (3.5-5.1) mEq/L Chloride (98-107) mEq/L Carbon Dioxide (21-32) mEq/L Anion Gap (5-15) BUN (7-18) mg/dL Creatinine (0.7-1.3) mg/dL Est Cr Clr Drug Dosing mL/min Estimated GFR (MDRD) (>60) mL/min BUN/Creatinine Ratio (14-18) Glucose (70-99) mg/dL POC Glucose (70-99) mg/dL Calcium (8.5-10.1) mg/dL Magnesium 2.6 H (1.8-2.4) mg/dL Total Bilirubin (0.2-1.0) mg/dL AST (15-37) U/L ALT (16-63) U/L Alkaline Phosphatase (46-116) U/L Troponin I 0.162 H* 0.108 H* (0.00-0.056) ng/mL C-Reactive Protein (<1.0) mg/dL Total Protein (6.4-8.2) g/dl Albumin (3.4-5.0) g/dl Globulin gm/dL Albumin/Globulin Ratio (1-2) 01/03/21 01/03/21 01/04/21 Range/Units 19:27 23:44 07:00 WBC (4.23-9.07) K/mm3 RBC (4.63-6.08) M/mm3 Hgb (13.7-17.5) gm/dl Hct (40.1-51.0) % MCV (79.0-92.2) fl MCH (25.7-32.2) pg MCHC (32.2-35.5) g/dl RDW Std Deviation (35.1-43.9) fL Plt Count (163-337) K/mm3 MPV (9.4-12.3) fl Neut % (Auto) (34.0-67.9) % Lymph % (Auto) (21.8-53.1) % [place] % (Auto) (5.3-12.2) % Eos % (Auto) (0.8-7.0) Baso % (Auto) (0.1-1.2) % Neut # (Auto) (1.78-5.38) K/mm3 Lymph # (Auto) (1.32-3.57) K/mm3 [place] # (Auto) (0.30-0.82) K/mm3 Eos # (Auto) (0.04-0.54) K/mm3 Baso # (Auto) (0.01-0.08) K/mm3 Manual Slide Review Sodium (136-145) mEq/L Potassium (3.5-5.1) mEq/L Chloride (98-107) mEq/L Carbon Dioxide (21-32) mEq/L Anion Gap (5-15) BUN (7-18) mg/dL Creatinine (0.7-1.3) mg/dL Est Cr Clr Drug Dosing mL/min Estimated GFR (MDRD) (>60) mL/min BUN/Creatinine Ratio (14-18) Glucose (70-99) mg/dL POC Glucose 104 H 157 H 155 H (70-99) mg/dL Calcium (8.5-10.1) mg/dL Magnesium (1.8-2.4) mg/dL Total Bilirubin (0.2-1.0) mg/dL AST (15-37) U/L ALT (16-63) U/L Alkaline Phosphatase (46-116) U/L Troponin I (0.00-0.056) ng/mL C-Reactive Protein (<1.0) mg/dL Total Protein (6.4-8.2) g/dl Albumin (3.4-5.0) g/dl Globulin gm/dL Albumin/Globulin Ratio (1-2) 01/04/21 01/04/21 Range/Units 07:05 07:05 WBC 20.71 H (4.23-9.07) K/mm3 RBC 4.64 (4.63-6.08) M/mm3 Hgb 15.5 (13.7-17.5) gm/dl Hct 46.0 (40.1-51.0) % MCV 99.1 H (79.0-92.2) fl MCH 33.4 H (25.7-32.2) pg MCHC 33.7 (32.2-35.5) g/dl RDW Std Deviation 50.0 H (35.1-43.9) fL Plt Count 236 D (163-337) K/mm3 MPV 11.9 (9.4-12.3) fl Neut % (Auto) 91.9 H (34.0-67.9) % Lymph % (Auto) 2.8 L (21.8-53.1) % [place] % (Auto) 4.8 L (5.3-12.2) % Eos % (Auto) 0 L (0.8-7.0) Baso % (Auto) 0.1 (0.1-1.2) % Neut # (Auto) 19.02 H (1.78-5.38) K/mm3 Lymph # (Auto) 0.59 L (1.32-3.57) K/mm3 [place] # (Auto) 1.00 H (0.30-0.82) K/mm3 Eos # (Auto) 0.00 L (0.04-0.54) K/mm3 Baso # (Auto) 0.02 (0.01-0.08) K/mm3 Manual Slide Review Abnormal smear Sodium 153 H (136-145) mEq/L Potassium 2.9 L (3.5-5.1) mEq/L Chloride 115 H (98-107) mEq/L Carbon Dioxide 32 (21-32) mEq/L Anion Gap 8.9 (5-15) BUN 41 H (7-18) mg/dL Creatinine 1.5 H (0.7-1.3) mg/dL Est Cr Clr Drug Dosing 43.45 mL/min Estimated GFR (MDRD) 46 (>60) mL/min BUN/Creatinine Ratio 27.3 H (14-18) Glucose 189 H (70-99) mg/dL POC Glucose (70-99) mg/dL Calcium 9.2 (8.5-10.1) mg/dL Magnesium (1.8-2.4) mg/dL Total Bilirubin 1.4 H (0.2-1.0) mg/dL AST 21 (15-37) U/L ALT 20 (16-63) U/L Alkaline Phosphatase 57 (46-116) U/L Troponin I (0.00-0.056) ng/mL C-Reactive Protein 14.0 H* (<1.0) mg/dL Total Protein 6.7 (6.4-8.2) g/dl Albumin 2.2 L (3.4-5.0) g/dl Globulin 4.5 gm/dL Albumin/Globulin Ratio 0.5 L (1-2) Result Diagrams: 01/04/21 07:05 01/04/21 07:05 Raj Results Last 24 hrs: Microbiology 01/01/21 23:40 Blood Culture - Preliminary Blood - Venous - Lab Draw 01/01/21 23:25 Blood Culture - Preliminary Blood - Venous 01/02/21 00:15 Urine Culture - Final Urine Sepsis Event Note - Evaluation Sepsis Screening Result: Severe Sepsis Risk - Focused Exam Vital Signs: Vital Signs Temp Pulse Resp BP Pulse Ox Pulse Ox 01/04/21 08:00 115 H 23 H 136/94 H 94 L 01/04/21 04:18 92 L 01/04/21 04:00 36.6 C 114 H 21 H 131/78 92 L 01/04/21 00:29 92 L 01/04/21 00:00 36.6 C 21 H 146/94 H 93 L - Problem List Review Problem List Initiated/Reviewed/Updated: Yes - My Orders Last 24 Hours: My Active Orders 01/03/21 15:46 Consult to [facility] T[employer]er [CONS] Routine 01/03/21 21:00 atorvaSTATin [Lipitor] 40 mg PO BEDTIME 01/04/21 Chest 1V-Tube Placement Chk NC [CR] Routine Chest 1V-Tube Placement Chk NC [CR] Routine 01/04/21 04:00 Piperacillin/Tazobactam [Piperacil-Tazobact] 4.5 gm Sodium Chloride 0.9% [Normal Saline] 100 ml IV Q8H 01/04/21 09:15 Potassium Chloride 20 meq Dextrose 5% in Water 1,000 ml IV Q6H 01/04/21 10:33 Code Status [Resuscitation Status] Routine 01/04/21 11:29 ABG [BLOOD GAS ARTERIAL] [BG] Urgent 01/04/21 11:43 Metoprolol Tartrate [Lopressor] 5 mg IVPUSH Q4H PRN 01/05/21 05:00 C-REACTIVE PROTEIN [CHEM] DAILY CBC WITH AUTO DIFF [HEME] DAILY COMPREHENSIVE METABOLIC PN,CMP [CHEM] DAILY MAGNESIUM [CHEM] Routine 01/06/21 05:00 C-REACTIVE PROTEIN [CHEM] DAILY CBC WITH AUTO DIFF [HEME] DAILY COMPREHENSIVE METABOLIC PN,CMP [CHEM] DAILY 01/07/21 05:00 C-REACTIVE PROTEIN [CHEM] DAILY CBC WITH AUTO DIFF [HEME] DAILY COMPREHENSIVE METABOLIC PN,CMP [CHEM] DAILY - Plan Plan:: Patient is a 70-year-old male with a history of diabetes and Alzheimer's dementia who was brought to the ER from [facility] [place] due to altered mental status. AMS Etiology unknown. Could be due to sepsis, metabolic events, TIA/stroke CT of head Brunson catheter (sister agreed to have brunson) Alzheimer's dementia Continue home medication memantine Acute hypoxic and hypercapnic respiratory failure Patient had been on 2 L since the positive Covid 19 test 10 days ago. He increased in need of oxygen the day before admission ABG - ph 7.28, pCO2 71 on admission Bipap prn to keep PCO2 < 50 and SPO2 > 90% Etiology for CO2 retention unknown. CT of chest was ordered but is not able to do due to patient condition and BiPAP Troponin-mild elevation BNP 1064 Sepsis 2nd to UTI Tachycardia and tachypnea Continue IV fluid IV antibiotic Blood culture so growth Urine culture UTI Urinalysis compatible with UTI Zosyn 2.25 g every 6 hour Positive Covid 19 Had a positive COVID-19 test that came days ago I would not like to initiate remdesivir at this moment I would not like you to initiate a steroid at this moment since he has bacterial sepsis D-dimer elevated. continue Lovenox 80 mg twice daily Inhalers Chest x-ray-no acute change Chest CT was ordered Dehydration 3 L normal saline were given in the ER Continue IV fluid ASHLEY, creatinine 1.3 on 12/22/2020 Etiologies including prerenal cause, sepsis, ATN Avoid nephrotoxic meds and contrast Repeat renal function in the morning disposition Elevation of D-dimer Could be due to COVID-19 infection or thromboembolic events Lovenox 80 mg twice daily Elevation of troponin 0.102-> 0.114-> 0.162 BNP 1064 Echocardiogram Discussed with sister Gaby (POA) who refused to transfer him to higher level hospital. Aspirin and Lipitor (but patient is not able to take the oral medications) Nutrition Sister Gaby would like to initiate the nutrition for him I feel that NG tube would increase the risk for aspiration. She agreed to have TPN Hypernatremia [id number] KCl 150ml/hr Nutrition As per request from family, will start TPN. PICC was placed today DVT prophylaxis: Lovenox CODE STATUS: DNR/DNI Discussed with Sister Gaby who initially would like to have CPR only but she called us back later she and her family would like to have DNR/DNI. Disposition: TBD
[2021-01-04] MEDS: Metoprolol Tartrate 5 MG/5 ML SDV IVPUSH PRN ×2 (12:07→20:39)
[2021-01-04] MEDS: Potassium Chloride 20 MEQ in Dextrose 5% in Water 1,000 ML IV SCH ×10 (12:29→23:31)
--- NOTE | 2021-01-04 13:46 | CR ---
Chest: Frontal view of the chest was obtained centered to the right side. Comparison: Prior chest x-ray of 01/04/21. Right basilar density is seen presumably due to stable atelectasis. Right-sided PICC line is seen. Tip lies within the right atria. Recommend withdrawal by about 6 cm. Impression: 1. Right-sided PICC line lying within the right atria. Please withdraw the PICC line by about 6 cm and repeat chest x-ray to confirm good position. 2. Mild stable atelectasis within the right lung base. Diagnostic code #3 MTDD
--- NOTE | 2021-01-04 13:48 | CR ---
Chest: Frontal view of the chest was obtained. Study is centered to the right side for PICC line placement. Comparison: Prior chest x-ray of 01/01/21. Right-sided PICC line is seen. Tip appears to lie within the proximal superior vena cava. Scattered areas of presumed atelectasis are seen within both lung bases. Upper lungs are clear. Heart size and mediastinum are stable. Impression: 1. Tip of PICC line lies within the superior vena cava. 2. Other portions of the chest appear stable from previous exam. Diagnostic code #3 MTDD
[2021-01-04] MEDS ORDERED: Fat Emulsion 500 ML IV SCH (15:00)
[2021-01-04] MEDS ORDERED: MVI, Adult with Vitamin K 10 ML in AA 5%/Calcium/D20W/Lytes 1,000 ML IV SCH ×2 (15:00)
[2021-01-04] MEDS: Potassium Chloride 10 MEQ in Premix Bag 1 BAG IV SCH ×2 (15:26→16:32)
[2021-01-04] MEDS: Insulin Lispro 100 UNIT/ML 10 ML Vial SUBCUT SCH ×2 (16:31→22:09)
[2021-01-04] MEDS: Furosemide 20 MG/2 ML VIAL IVPUSH SCH (18:30)
[2021-01-04] MEDS: atorvaSTATin 40 MG Tab PO SCH (20:43)
[2021-01-05] MEDS: Metoprolol Tartrate 5 MG/5 ML SDV IVPUSH PRN ×6 (00:38→21:00)
[2021-01-05] MEDS ORDERED: Non-Formulary Medication 1 EACH ONE ×3 (03:00→09:15)
[2021-01-05] MEDS: Piperacillin/Tazobactam 4.5 GM in Sodium Chloride 0.9% 100 ML IV SCH ×3 (03:56→20:00)
[2021-01-05] MEDS: Insulin Lispro 100 UNIT/ML 10 ML Vial SUBCUT SCH ×4 (04:12→20:19)
[2021-01-05] MEDS: Pantoprazole 40 MG Tab.CR PO SCH (05:31)
[2021-01-05] MEDS: Albuterol/Ipratropium 3.0-0.5 MG/3 ML Neb Soln NEB PRN ×4 (06:10→20:32)
[2021-01-05] MEDS: Docusate Sodium 100 MG Cap PO SCH ×2 (08:37→20:01)
[2021-01-05] MEDS: Memantine 10 MG Tab PO SCH ×2 (08:38→20:19)
[2021-01-05] MEDS: buPROPion 150 MG Tab.ER PO SCH (08:44)
[2021-01-05] MEDS: Cholecalciferol (Vitamin D3) 25 MCG Tab PO SCH (08:44)
[2021-01-05] MEDS ORDERED: Dextrose 5% in Water 1,000 ML IV SCH ×2 (09:00→10:00)
[2021-01-05] MEDS: Furosemide 20 MG/2 ML VIAL IVPUSH SCH (09:06)
[2021-01-05] MEDS: Enoxaparin 80 MG/0.8 ML Syringe SUBCUT SCH ×2 (09:06→20:51)
[2021-01-05] MEDS: Potassium Chloride 10 MEQ in Premix Bag 1 BAG IV SCH ×6 (10:14→15:29)
[2021-01-05] MEDS: Dextrose 5% in Water 1,000 ML IV SCH ×2 (11:20→18:00)
--- NOTE | 2021-01-05 12:19 | PCM.PN ---
- General Info Date of Service: 01/05/21 Admission Dx/Problem (Free Text): Admission Diagnosis/Problem Admission Diagnosis/Problem Hypoxia Subjective Update: Patient is a 70-year-old male with a history of diabetes and Alzheimer's dementia who was brought to the ER from [facility] [place] due to altered mental status. Patient is nonresponsive to both verbal and pain stimuli today. He still has tachycardia. BP is improving. Good urine output. Creatinine is trending down to 1.5. He is now on HF 45L - Review of Systems Systems Review Comment:: Unable to obtain due to AMS and unresponsiveness - Patient Data Vitals - Most Recent: Last Vital Signs Temp 37.1 C 01/05/21 08:00 Pulse 126 H 01/05/21 10:14 Resp 27 H 01/05/21 08:00 BP 136/87 01/05/21 10:14 Pulse Ox 91 L 01/05/21 10:07 Weight - Most Recent: 90.265 kg I&O - Last 24 Hours: Intake & Output 01/04/21 01/05/21 01/05/21 22:59 06:59 14:59 Intake Total 1275 1888 Output Total 925 525 470 Balance 350 1363 -470 Lab Results Last 24 Hours: Laboratory Results - last 24 hr 01/04/21 01/04/21 01/04/21 Range/Units 13:19 14:16 15:25 WBC (4.23-9.07) K/mm3 RBC (4.63-6.08) M/mm3 Hgb (13.7-17.5) gm/dl Hct (40.1-51.0) % MCV (79.0-92.2) fl MCH (25.7-32.2) pg MCHC (32.2-35.5) g/dl RDW Std Deviation (35.1-43.9) fL Plt Count (163-337) K/mm3 MPV (9.4-12.3) fl Neut % (Auto) (34.0-67.9) % Lymph % (Auto) (21.8-53.1) % Dunn % (Auto) (5.3-12.2) % Eos % (Auto) (0.8-7.0) Baso % (Auto) (0.1-1.2) % Neut # (Auto) (1.78-5.38) K/mm3 Lymph # (Auto) (1.32-3.57) K/mm3 Dunn # (Auto) (0.30-0.82) K/mm3 Eos # (Auto) (0.04-0.54) K/mm3 Baso # (Auto) (0.01-0.08) K/mm3 Manual Slide Review Puncture Site Rt radial ABG pH 7.52 H (7.35-7.45) ABG pCO2 38.4 (35.0-45.0) mmHg ABG pO2 60.0 L (80.0-100.0) mmHg ABG HCO3 31.4 H (22.0-26.0) meq/L ABG O2 Saturation 91.6 L (96.0-97.0) % ABG Base Excess 8.2 H (-2-2.0) A-a Gradient 177 mmHg O2 Delivery Device Hiflow nasal cannula Oxygen Flow Rate 50.0 FiO2 40.00 (21.00-100.00) % Sodium (136-145) mEq/L Potassium (3.5-5.1) mEq/L Chloride (98-107) mEq/L Carbon Dioxide (21-32) mEq/L Anion Gap (5-15) BUN (7-18) mg/dL Creatinine (0.7-1.3) mg/dL Est Cr Clr Drug Dosing mL/min Estimated GFR (MDRD) (>60) mL/min BUN/Creatinine Ratio (14-18) Glucose (70-99) mg/dL POC Glucose 144 H 188 H (70-99) mg/dL Calcium (8.5-10.1) mg/dL Magnesium (1.8-2.4) mg/dL Total Bilirubin (0.2-1.0) mg/dL AST (15-37) U/L ALT (16-63) U/L Alkaline Phosphatase (46-116) U/L C-Reactive Protein (<1.0) mg/dL Total Protein (6.4-8.2) g/dl Albumin (3.4-5.0) g/dl Globulin gm/dL Albumin/Globulin Ratio (1-2) 01/04/21 01/05/21 01/05/21 Range/Units 22:00 03:49 05:15 WBC 21.07 H (4.23-9.07) K/mm3 RBC 4.05 L (4.63-6.08) M/mm3 Hgb 13.2 L D (13.7-17.5) gm/dl Hct 41.2 (40.1-51.0) % MCV 101.7 H (79.0-92.2) fl MCH 32.6 H (25.7-32.2) pg MCHC 32.0 L (32.2-35.5) g/dl RDW Std Deviation 48.6 H (35.1-43.9) fL Plt Count 206 (163-337) K/mm3 MPV 12.7 H (9.4-12.3) fl Neut % (Auto) 93.3 H (34.0-67.9) % Lymph % (Auto) 2.9 L (21.8-53.1) % Dunn % (Auto) 3.2 L (5.3-12.2) % Eos % (Auto) 0.1 L (0.8-7.0) Baso % (Auto) 0.0 L (0.1-1.2) % Neut # (Auto) 19.63 H (1.78-5.38) K/mm3 Lymph # (Auto) 0.62 L (1.32-3.57) K/mm3 Dunn # (Auto) 0.68 (0.30-0.82) K/mm3 Eos # (Auto) 0.02 L (0.04-0.54) K/mm3 Baso # (Auto) 0.01 (0.01-0.08) K/mm3 Manual Slide Review Abnormal smear Puncture Site ABG pH (7.35-7.45) ABG pCO2 (35.0-45.0) mmHg ABG pO2 (80.0-100.0) mmHg ABG HCO3 (22.0-26.0) meq/L ABG O2 Saturation (96.0-97.0) % ABG Base Excess (-2-2.0) A-a Gradient mmHg O2 Delivery Device Oxygen Flow Rate FiO2 (21.00-100.00) % Sodium (136-145) mEq/L Potassium (3.5-5.1) mEq/L Chloride (98-107) mEq/L Carbon Dioxide (21-32) mEq/L Anion Gap (5-15) BUN (7-18) mg/dL Creatinine (0.7-1.3) mg/dL Est Cr Clr Drug Dosing mL/min Estimated GFR (MDRD) (>60) mL/min BUN/Creatinine Ratio (14-18) Glucose (70-99) mg/dL POC Glucose 173 H 189 H (70-99) mg/dL Calcium (8.5-10.1) mg/dL Magnesium (1.8-2.4) mg/dL Total Bilirubin (0.2-1.0) mg/dL AST (15-37) U/L ALT (16-63) U/L Alkaline Phosphatase (46-116) U/L C-Reactive Protein (<1.0) mg/dL Total Protein (6.4-8.2) g/dl Albumin (3.4-5.0) g/dl Globulin gm/dL Albumin/Globulin Ratio (1-2) 01/05/21 01/05/21 01/05/21 Range/Units 05:15 09:01 10:19 WBC (4.23-9.07) K/mm3 RBC (4.63-6.08) M/mm3 Hgb (13.7-17.5) gm/dl Hct (40.1-51.0) % MCV (79.0-92.2) fl MCH (25.7-32.2) pg MCHC (32.2-35.5) g/dl RDW Std Deviation (35.1-43.9) fL Plt Count (163-337) K/mm3 MPV (9.4-12.3) fl Neut % (Auto) (34.0-67.9) % Lymph % (Auto) (21.8-53.1) % Dunn % (Auto) (5.3-12.2) % Eos % (Auto) (0.8-7.0) Baso % (Auto) (0.1-1.2) % Neut # (Auto) (1.78-5.38) K/mm3 Lymph # (Auto) (1.32-3.57) K/mm3 Dunn # (Auto) (0.30-0.82) K/mm3 Eos # (Auto) (0.04-0.54) K/mm3 Baso # (Auto) (0.01-0.08) K/mm3 Manual Slide Review Puncture Site Rt radial ABG pH 7.61 H* (7.35-7.45) ABG pCO2 31.3 L (35.0-45.0) mmHg ABG pO2 50.0 L (80.0-100.0) mmHg ABG HCO3 31.6 H (22.0-26.0) meq/L ABG O2 Saturation 90.5 L (96.0-97.0) % ABG Base Excess 9.9 H (-2-2.0) A-a Gradient 196 mmHg O2 Delivery Device Hiflow nasal cannula Oxygen Flow Rate 45.0 FiO2 40.00 (21.00-100.00) % Sodium 156 H (136-145) mEq/L Potassium 2.6 L (3.5-5.1) mEq/L Chloride 115 H (98-107) mEq/L Carbon Dioxide 34 H (21-32) mEq/L Anion Gap 9.6 (5-15) BUN 36 H (7-18) mg/dL Creatinine 1.5 H (0.7-1.3) mg/dL Est Cr Clr Drug Dosing 43.45 mL/min Estimated GFR (MDRD) 46 (>60) mL/min BUN/Creatinine Ratio 24.0 H (14-18) Glucose 204 H (70-99) mg/dL POC Glucose 170 H (70-99) mg/dL Calcium 8.6 (8.5-10.1) mg/dL Magnesium 2.3 (1.8-2.4) mg/dL Total Bilirubin 0.8 (0.2-1.0) mg/dL AST 40 H (15-37) U/L ALT 28 (16-63) U/L Alkaline Phosphatase 53 (46-116) U/L C-Reactive Protein 9.5 H* (<1.0) mg/dL Total Protein 5.9 L (6.4-8.2) g/dl Albumin 1.9 L (3.4-5.0) g/dl Globulin 4.0 gm/dL Albumin/Globulin Ratio 0.5 L (1-2) Med Orders - Current: Current Medications Acetaminophen (Acetaminophen 325 Mg Tab) 650 mg PO Q6H PRN PRN Reason: Pain (Mild 1-3)/fever Albuterol/Ipratropium (Albuterol/Ipratropium 3.0-0.5 Mg/3 Ml Neb Soln) 3 ml NEB Q4H PRN PRN Reason: Shortness Of Breath/wheezing Last Admin: 01/05/21 10:07 Dose: 3 ml Documented by: Atorvastatin Calcium (Atorvastatin 40 Mg Tab) 40 mg PO BEDTIME [facility] Last Admin: 01/04/21 20:43 Dose: Not Given Documented by: Bupropion HCl (Bupropion 150 Mg Tab.Er) 150 mg PO DAILY [facility] Last Admin: 01/05/21 08:44 Dose: Not Given Documented by: Cholecalciferol (Cholecalciferol (Vitamin D3) 25 Mcg Tab) 25 mcg PO DAILY [facility] Last Admin: 01/05/21 08:44 Dose: Not Given Documented by: Docusate Sodium (Docusate Sodium 100 Mg Cap) 100 mg PO BID [facility] Last Admin: 01/05/21 08:37 Dose: Not Given Documented by: Enoxaparin Sodium (Enoxaparin 80 Mg/0.8 Ml Syringe) 80 mg SUBCUT BID [facility] Last Admin: 01/05/21 09:06 Dose: 80 mg Documented by: Furosemide (Furosemide 20 Mg/2 Ml Vial) 20 mg IVPUSH DAILY [facility] Last Admin: 01/05/21 09:06 Dose: 20 mg Documented by: Hydralazine HCl (Hydralazine 20 Mg/Ml Sdv) 10 mg IVPUSH Q4H PRN PRN Reason: Hypertension Last Admin: 01/02/21 22:07 Dose: 10 mg Documented by: Promethazine HCl 12.5 mg/ (Sodium Chloride) 50.5 mls @ 100 mls/hr IV Q6H PRN PRN Reason: Nausea/Vomiting Piperacillin Sod/Tazobactam (Sod 4.5 gm/ Sodium Chloride) 100 mls @ 25 mls/hr IV Q8H [facility] Last Admin: 01/05/21 11:17 Dose: 25 mls/hr Documented by: Multivitamins/Minerals 10 ml/Amino Ac/Electrol/Dextrose/Calcium 1,010 mls @ 40 mls/hr IV TITRATE [facility] Stop: 01/05/21 14:59 Last Infusion: 01/05/21 09:32 Dose: 0 mls/hr Documented by: Fat Emulsion Intravenous (Intralipid 20%) 500 mls @ 62.5 mls/hr IV MoWeFr [facility] Last Admin: 01/04/21 15:32 Dose: 62.5 mls/hr Documented by: Potassium Chloride 10 meq/ (Premix) 100 mls @ 100 mls/hr IV Q1H [facility] Stop: 01/05/21 14:59 Last Admin: 01/05/21 11:17 Dose: 100 mls/hr Documented by: Dextrose/Water (Dextrose 5% In Water) 1,000 mls @ 150 mls/hr IV ASDIRECTED [facility] Last Admin: 01/05/21 11:20 Dose: 150 mls/hr Documented by: Insulin Human Lispro (Insulin Lispro 100 Unit/Ml 10 Ml Vial) 0 unit SUBCUT Q6H [facility]; Protocol Last Admin: 01/05/21 09:04 Dose: 2 units Documented by: Memantine (Memantine 10 Mg Tab) 10 mg PO BID [facility] Last Admin: 01/05/21 08:38 Dose: Not Given Documented by: Metoprolol Tartrate (Metoprolol Tartrate 5 Mg/5 Ml Sdv) 5 mg IVPUSH Q4H PRN PRN Reason: Tachycardia Last Admin: 01/05/21 10:14 Dose: 5 mg Documented by: Pantoprazole Sodium (Pantoprazole 40 Mg Vial) 40 mg IVPUSH BEDTIME [facility] Sodium Chloride (Sodium Chloride 0.9% 10 Ml Syringe) 10 ml FLUSH ASDIRECTED PRN PRN Reason: Keep Vein Open Last Admin: 01/01/21 23:57 Dose: 10 ml Documented by: Discontinued Medications Albuterol/Ipratropium (Albuterol/Ipratropium 3.0-0.5 Mg/3 Ml Neb Soln) 3 ml NEB ONETIME ONE Stop: 01/01/21 23:15 Last Admin: 01/01/21 23:37 Dose: 3 ml Documented by: Dexamethasone (Dexamethasone 4 Mg/Ml Sdv) 6 mg IVPUSH ONETIME ONE Stop: 01/01/21 23:14 Last Admin: 01/01/21 23:57 Dose: 6 mg Documented by: Heparin Sodium (Porcine) (Heparin Sodium 5,000 Units/Ml Vial) 5,000 units SUBCUT Q8H [facility] Last Admin: 01/02/21 15:17 Dose: 5,000 units Documented by: Sodium Chloride (Normal Saline) 1,000 mls @ 125 mls/hr IV ASDIRECTED [facility] Last Admin: 01/01/21 23:56 Dose: 125 mls/hr Documented by: Sodium Chloride (Normal Saline) 1,000 mls @ 1,000 mls/hr IV ONETIME ONE Stop: 01/02/21 01:02 Last Admin: 01/02/21 00:17 Dose: 1,000 mls/hr Documented by: Ceftriaxone Sodium 2 gm/ (Sodium Chloride) 100 mls @ 200 mls/hr IV ONETIME ONE Stop: 01/02/21 01:26 Last Admin: 01/02/21 01:17 Dose: 200 mls/hr Documented by: Sodium Chloride (Normal Saline) 1,000 mls @ 1,000 mls/hr IV ONETIME ONE Stop: 01/02/21 02:10 Last Admin: 01/02/21 01:18 Dose: 1,000 mls/hr Documented by: Lactated Ringer's (Ringers, Lactated) 1,000 mls @ 1,000 mls/hr IV .BOLUS ONE Stop: 01/02/21 02:10 Last Admin: 01/02/21 02:52 Dose: 1,000 mls/hr Documented by: Ceftriaxone Sodium 1 gm/ (Sodium Chloride) 100 mls @ 200 mls/hr IV Q24H [facility] Potassium Chloride/Sodium Chloride (Normal Saline With 20 Meq Kcl) 1,000 mls @ 75 mls/hr IV ASDIRECTED [facility] Last Admin: 01/02/21 15:20 Dose: 75 mls/hr Documented by: Piperacillin Sod/Tazobactam (Sod 4.5 gm/ Sodium Chloride) 100 mls @ 200 mls/hr IV ONETIME ONE Stop: 01/02/21 16:29 Last Admin: 01/02/21 15:26 Dose: 200 mls/hr Documented by: Piperacillin Sod/Tazobactam (Sod 4.5 gm/ Sodium Chloride) 100 mls @ 25 mls/hr IV Q8H [facility] Last Admin: 01/03/21 19:47 Dose: 25 mls/hr Documented by: Potassium Cl/Dextrose/Lact Ringer's (D5 Lr With 20 Meq Kcl) 1,000 mls @ 65 mls/hr IV ASDIRECTED [facility] Last Admin: 01/02/21 17:29 Dose: 65 mls/hr Documented by: Potassium Chloride 20 meq/ (Dextrose/Water) 1,010 mls @ 101 mls/hr IV ASDIRECTED [facility] Potassium Chloride 20 meq/ (Dextrose/Water) 1,010 mls @ 101 mls/hr IV Q10H [facility] Last Admin: 01/04/21 23:31 Dose: Not Given Documented by: Potassium Chloride 20 meq/ (Dextrose/Water) 1,010 mls @ 150 mls/hr IV Q6H [facility] Stop: 01/04/21 18:00 Last Admin: 01/04/21 20:30 Dose: Not Given Documented by: Non-Formulary Medication (Nf Drug) 520 mls @ 55 mls/hr .XX ONETIME ONE Stop: 01/05/21 12:27 Last Admin: 01/05/21 03:53 Dose: Not Given Documented by: Potassium Chloride 20 meq/ (Dextrose/Water) 1,010 mls @ 100 mls/hr IV Q20H [facility] Stop: 01/05/21 12:00 Last Infusion: 01/05/21 09:33 Dose: 150 mls/hr Documented by: Potassium Chloride 10 meq/ (Premix) 100 mls @ 100 mls/hr IV Q1H [facility] Stop: 01/04/21 16:59 Last Admin: 01/04/21 16:32 Dose: 100 mls/hr Documented by: Dextrose/Water (Dextrose 5% In Water) 1,000 mls @ 100 mls/hr IV ASDIRECTED [facility] Non-Formulary Medication (Nf Drug) 520 mls @ 0 mls/hr .XX ONETIME ONE Stop: 01/05/21 09:16 Last Admin: 01/05/21 09:35 Dose: Not Given Documented by: Metoprolol Tartrate (Metoprolol Tartrate 5 Mg/5 Ml Sdv) 2.5 mg IVPUSH Q2H PRN PRN Reason: Tachycardia Last Admin: 01/03/21 08:25 Dose: 2.5 mg Documented by: Morphine Sulfate (Morphine 2 Mg/Ml Syringe) 2 mg IVPUSH Q4H PRN PRN Reason: Pain (severe 7-10) Stop: 01/03/21 14:24 Last Admin: 01/02/21 22:49 Dose: 2 mg Documented by: Pantoprazole Sodium (Pantoprazole 40 Mg Tab.Cr) 40 mg PO ACBREAKFAST [facility] Last Admin: 01/05/21 05:31 Dose: Not Given Documented by: Risperidone (Risperidone 0.25 Mg Tab) 0.25 mg PO DAILY [facility] Risperidone (Risperidone 1 Mg Tab) 1 mg PO BEDTIME [facility] - Exam Central Line Total Time: 1Days 0Hours Urinary Catheter Total Time: 2Days 18Hours Physical Findings Comments:: General: does not respond to verbal and pain stimuli HEENT: Conjunctiva Clear, Mucosa Moist & [place] Neck: Trachea Midline. No: Lymphadenopathy, JVD Lungs: Clear to Auscultation, Decreased Breath Sounds Cardiovascular: Regular Rate, Regular Rhythm, Tachycardia GI/Abdominal Exam: Normal Bowel Sounds, Soft, No Organomegaly, No Distention Extremities: Normal Inspection, No Pedal Edema Neurological: Reflexes Equal Bilateral Neuro Extensive - Mental Status: Disorientation to Person, Disorientation to Place, Disorientation to Time, nonresponsive to verbal and pain stimuli Psychiatric: Other (Unable to complete due to unresponsiveness) - Patient Data Lab Results Last 24 hrs: Laboratory Results - last 24 hr 01/04/21 01/04/21 01/04/21 Range/Units 13:19 14:16 15:25 WBC (4.23-9.07) K/mm3 RBC (4.63-6.08) M/mm3 Hgb (13.7-17.5) gm/dl Hct (40.1-51.0) % MCV (79.0-92.2) fl MCH (25.7-32.2) pg MCHC (32.2-35.5) g/dl RDW Std Deviation (35.1-43.9) fL Plt Count (163-337) K/mm3 MPV (9.4-12.3) fl Neut % (Auto) (34.0-67.9) % Lymph % (Auto) (21.8-53.1) % Dunn % (Auto) (5.3-12.2) % Eos % (Auto) (0.8-7.0) Baso % (Auto) (0.1-1.2) % Neut # (Auto) (1.78-5.38) K/mm3 Lymph # (Auto) (1.32-3.57) K/mm3 Dunn # (Auto) (0.30-0.82) K/mm3 Eos # (Auto) (0.04-0.54) K/mm3 Baso # (Auto) (0.01-0.08) K/mm3 Manual Slide Review Puncture Site Rt radial ABG pH 7.52 H (7.35-7.45) ABG pCO2 38.4 (35.0-45.0) mmHg ABG pO2 60.0 L (80.0-100.0) mmHg ABG HCO3 31.4 H (22.0-26.0) meq/L ABG O2 Saturation 91.6 L (96.0-97.0) % ABG Base Excess 8.2 H (-2-2.0) A-a Gradient 177 mmHg O2 Delivery Device Hiflow nasal cannula Oxygen Flow Rate 50.0 FiO2 40.00 (21.00-100.00) % Sodium (136-145) mEq/L Potassium (3.5-5.1) mEq/L Chloride (98-107) mEq/L Carbon Dioxide (21-32) mEq/L Anion Gap (5-15) BUN (7-18) mg/dL Creatinine (0.7-1.3) mg/dL Est Cr Clr Drug Dosing mL/min Estimated GFR (MDRD) (>60) mL/min BUN/Creatinine Ratio (14-18) Glucose (70-99) mg/dL POC Glucose 144 H 188 H (70-99) mg/dL Calcium (8.5-10.1) mg/dL Magnesium (1.8-2.4) mg/dL Total Bilirubin (0.2-1.0) mg/dL AST (15-37) U/L ALT (16-63) U/L Alkaline Phosphatase (46-116) U/L C-Reactive Protein (<1.0) mg/dL Total Protein (6.4-8.2) g/dl Albumin (3.4-5.0) g/dl Globulin gm/dL Albumin/Globulin Ratio (1-2) 01/04/21 01/05/21 01/05/21 Range/Units 22:00 03:49 05:15 WBC 21.07 H (4.23-9.07) K/mm3 RBC 4.05 L (4.63-6.08) M/mm3 Hgb 13.2 L D (13.7-17.5) gm/dl Hct 41.2 (40.1-51.0) % MCV 101.7 H (79.0-92.2) fl MCH 32.6 H (25.7-32.2) pg MCHC 32.0 L (32.2-35.5) g/dl RDW Std Deviation 48.6 H (35.1-43.9) fL Plt Count 206 (163-337) K/mm3 MPV 12.7 H (9.4-12.3) fl Neut % (Auto) 93.3 H (34.0-67.9) % Lymph % (Auto) 2.9 L (21.8-53.1) % Dunn % (Auto) 3.2 L (5.3-12.2) % Eos % (Auto) 0.1 L (0.8-7.0) Baso % (Auto) 0.0 L (0.1-1.2) % Neut # (Auto) 19.63 H (1.78-5.38) K/mm3 Lymph # (Auto) 0.62 L (1.32-3.57) K/mm3 Dunn # (Auto) 0.68 (0.30-0.82) K/mm3 Eos # (Auto) 0.02 L (0.04-0.54) K/mm3 Baso # (Auto) 0.01 (0.01-0.08) K/mm3 Manual Slide Review Abnormal smear Puncture Site ABG pH (7.35-7.45) ABG pCO2 (35.0-45.0) mmHg ABG pO2 (80.0-100.0) mmHg ABG HCO3 (22.0-26.0) meq/L ABG O2 Saturation (96.0-97.0) % ABG Base Excess (-2-2.0) A-a Gradient mmHg O2 Delivery Device Oxygen Flow Rate FiO2 (21.00-100.00) % Sodium (136-145) mEq/L Potassium (3.5-5.1) mEq/L Chloride (98-107) mEq/L Carbon Dioxide (21-32) mEq/L Anion Gap (5-15) BUN (7-18) mg/dL Creatinine (0.7-1.3) mg/dL Est Cr Clr Drug Dosing mL/min Estimated GFR (MDRD) (>60) mL/min BUN/Creatinine Ratio (14-18) Glucose (70-99) mg/dL POC Glucose 173 H 189 H (70-99) mg/dL Calcium (8.5-10.1) mg/dL Magnesium (1.8-2.4) mg/dL Total Bilirubin (0.2-1.0) mg/dL AST (15-37) U/L ALT (16-63) U/L Alkaline Phosphatase (46-116) U/L C-Reactive Protein (<1.0) mg/dL Total Protein (6.4-8.2) g/dl Albumin (3.4-5.0) g/dl Globulin gm/dL Albumin/Globulin Ratio (1-2) 01/05/21 01/05/21 01/05/21 Range/Units 05:15 09:01 10:19 WBC (4.23-9.07) K/mm3 RBC (4.63-6.08) M/mm3 Hgb (13.7-17.5) gm/dl Hct (40.1-51.0) % MCV (79.0-92.2) fl MCH (25.7-32.2) pg MCHC (32.2-35.5) g/dl RDW Std Deviation (35.1-43.9) fL Plt Count (163-337) K/mm3 MPV (9.4-12.3) fl Neut % (Auto) (34.0-67.9) % Lymph % (Auto) (21.8-53.1) % Dunn % (Auto) (5.3-12.2) % Eos % (Auto) (0.8-7.0) Baso % (Auto) (0.1-1.2) % Neut # (Auto) (1.78-5.38) K/mm3 Lymph # (Auto) (1.32-3.57) K/mm3 Dunn # (Auto) (0.30-0.82) K/mm3 Eos # (Auto) (0.04-0.54) K/mm3 Baso # (Auto) (0.01-0.08) K/mm3 Manual Slide Review Puncture Site Rt radial ABG pH 7.61 H* (7.35-7.45) ABG pCO2 31.3 L (35.0-45.0) mmHg ABG pO2 50.0 L (80.0-100.0) mmHg ABG HCO3 31.6 H (22.0-26.0) meq/L ABG O2 Saturation 90.5 L (96.0-97.0) % ABG Base Excess 9.9 H (-2-2.0) A-a Gradient 196 mmHg O2 Delivery Device Hiflow nasal cannula Oxygen Flow Rate 45.0 FiO2 40.00 (21.00-100.00) % Sodium 156 H (136-145) mEq/L Potassium 2.6 L (3.5-5.1) mEq/L Chloride 115 H (98-107) mEq/L Carbon Dioxide 34 H (21-32) mEq/L Anion Gap 9.6 (5-15) BUN 36 H (7-18) mg/dL Creatinine 1.5 H (0.7-1.3) mg/dL Est Cr Clr Drug Dosing 43.45 mL/min Estimated GFR (MDRD) 46 (>60) mL/min BUN/Creatinine Ratio 24.0 H (14-18) Glucose 204 H (70-99) mg/dL POC Glucose 170 H (70-99) mg/dL Calcium 8.6 (8.5-10.1) mg/dL Magnesium 2.3 (1.8-2.4) mg/dL Total Bilirubin 0.8 (0.2-1.0) mg/dL AST 40 H (15-37) U/L ALT 28 (16-63) U/L Alkaline Phosphatase 53 (46-116) U/L C-Reactive Protein 9.5 H* (<1.0) mg/dL Total Protein 5.9 L (6.4-8.2) g/dl Albumin 1.9 L (3.4-5.0) g/dl Globulin 4.0 gm/dL Albumin/Globulin Ratio 0.5 L (1-2) Result Diagrams: 01/05/21 05:15 01/05/21 05:15 Sepsis Event Note - Evaluation Sepsis Screening Result: Severe Sepsis Risk - Focused Exam Vital Signs: Vital Signs Temp Pulse Pulse Resp BP BP Pulse Ox 01/05/21 10:14 126 H 136/87 01/05/21 10:07 01/05/21 08:00 37.1 C 125 H 27 H 149/76 H 90 L 01/05/21 06:10 01/05/21 06:00 26 H 91 L 01/05/21 04:55 121 H 110/68 01/05/21 04:00 37.1 C 26 H 123/71 91 L 01/05/21 01:08 118/76 01/05/21 01:00 27 H 92 L 01/05/21 00:38 122 H 108/75 Pulse Ox 01/05/21 10:14 01/05/21 10:07 91 L 01/05/21 08:00 01/05/21 06:10 91 L 01/05/21 06:00 01/05/21 04:55 01/05/21 04:00 01/05/21 01:08 01/05/21 01:00 01/05/21 00:38 - Problem List Review Problem List Initiated/Reviewed/Updated: Yes - My Orders Last 24 Hours: My Active Orders 01/04/21 11:43 Metoprolol Tartrate [Lopressor] 5 mg IVPUSH Q4H PRN 01/04/21 11:54 Oxygen Therapy Adult [Oxygen Therapy] [RC] ASDIRECTED 01/04/21 15:00 Fat Emulsion [Intralipid 20%] 500 ml IV MoWeFr Insulin Lispro [HumaLOG] See Protocol SUBCUT Q6H MVI, Adult with Vitamin K [Infuvite Adult] 10 ml AA 5%/Calcium/D20W/Lytes [Clinimix E 5/20] 1,000 ml IV TITRATE 01/04/21 17:30 Furosemide [Lasix] 20 mg IVPUSH DAILY 01/05/21 09:00 Dextrose 5% in Water 1,000 ml IV ASDIRECTED Potassium Chloride [KCl in Water 10 MEQ/100 ML] 10 meq Premix Bag 1 bag IV Q1H 01/05/21 21:00 Pantoprazole [ProTONIX IV] 40 mg IVPUSH BEDTIME 01/06/21 05:00 C-REACTIVE PROTEIN [CHEM] DAILY CBC WITH AUTO DIFF [HEME] DAILY COMPREHENSIVE METABOLIC PN,CMP [CHEM] DAILY 01/07/21 05:00 C-REACTIVE PROTEIN [CHEM] DAILY CBC WITH AUTO DIFF [HEME] DAILY COMPREHENSIVE METABOLIC PN,CMP [CHEM] DAILY - Plan Plan:: Patient is a 70-year-old male with a history of diabetes and Alzheimer's dementia who was brought to the ER from [facility] due to altered mental status. AMS Etiology unknown. Could be due to sepsis, metabolic events, hypernatremia, TIA/stroke CT of head - unable to complete Brunson catheter (sister agreed to have brunson) Alzheimer's dementia Continue home medication memantine Acute hypoxic and hypercapnic respiratory failure Patient had been on 2 L since the positive Covid 19 test 10 days ago. He increased in need of oxygen the day before admission ABG - ph 7.28, pCO2 71 on admission Bipap prn to keep PCO2 < 50 and SPO2 > 90% Etiology for CO2 retention unknown. CT of chest was ordered but is not able to do due to patient condition and BiPAP Troponin-mild elevation BNP 1064 Sepsis 2nd to UTI Tachycardia and tachypnea Continue IV fluid IV antibiotic Blood culture no growth Urine culture UTI Urinalysis compatible with UTI Zosyn 2.25 g every 6 hour Positive Covid 19 Had a positive COVID-19 test 10 days ago before admission received Regeneron I would not like to initiate remdesivir at this moment I would not like you to initiate a steroid at this moment since he has bacterial sepsis. His CRP is trending down to 9.5 today D-dimer elevated. continue Lovenox 80 mg twice daily Inhalers Chest x-ray-no acute change Chest CT was ordered Dehydration 3 L normal saline were given in the ER Continue IV fluid ASHLEY, creatinine 1.3 on 12/22/2020 Etiologies including prerenal cause, sepsis, ATN Creatinine 1.5 today Avoid nephrotoxic meds and contrast Repeat renal function in the morning disposition Elevation of D-dimer Could be due to COVID-19 infection or thromboembolic events Lovenox 80 mg twice daily Elevation of troponin 0.102-> 0.114-> 0.162 BNP 1064 Echocardiogram Discussed with sister Gaby (POA) who refused to transfer him to higher level hospital. Aspirin and Lipitor (but patient is not able to take the oral medications) Nutrition Sister Gaby would like to initiate the nutrition for him I feel that NG tube would increase the risk for aspiration. She agreed to have TPN PICC line was placed and TPN was initiated yesterday. Will discuss with sister Gaby PEG tube feeding Hypernatremia 156 today [id number] KCl 150ml/hr TPN is temporarily on hold today. I would like her to correct hypernatremia first. DVT prophylaxis: Lovenox CODE STATUS: DNR/DNI Discussed with Sister Gaby who initially would like to have CPR only but she called us back later she and her family would like to have DNR/DNI. Disposition: TBD
[2021-01-05] MEDS: atorvaSTATin 40 MG Tab PO SCH (20:01)
[2021-01-05] MEDS: Pantoprazole 40 MG Vial IVPUSH SCH (20:52)
[2021-01-06] MEDS: Dextrose 5% in Water 1,000 ML IV SCH ×2 (00:40→07:24)
[2021-01-06] MEDS: Albuterol/Ipratropium 3.0-0.5 MG/3 ML Neb Soln NEB PRN ×4 (02:12→21:34)
[2021-01-06] MEDS: Insulin Lispro 100 UNIT/ML 10 ML Vial SUBCUT SCH ×4 (02:57→21:24)
[2021-01-06] MEDS: Piperacillin/Tazobactam 4.5 GM in Sodium Chloride 0.9% 100 ML IV SCH ×3 (04:26→20:25)
[2021-01-06] MEDS: Furosemide 20 MG/2 ML VIAL IVPUSH SCH (08:06)
[2021-01-06] MEDS: Enoxaparin 80 MG/0.8 ML Syringe SUBCUT SCH ×2 (08:06→20:25)
[2021-01-06] MEDS: Docusate Sodium 100 MG Cap PO SCH (08:17)
[2021-01-06] MEDS: buPROPion 150 MG Tab.ER PO SCH (08:18)
[2021-01-06] MEDS: Cholecalciferol (Vitamin D3) 25 MCG Tab PO SCH (08:18)
[2021-01-06] MEDS: Memantine 10 MG Tab PO SCH (08:18)
[2021-01-06] MEDS ORDERED: Potassium Chloride 20 MEQ in Dextrose 5% in Water 1,000 ML IV SCH ×2 (08:30)
--- NOTE | 2021-01-06 09:01 | PCM.PN ---
- General Info Date of Service: 01/06/21 Admission Dx/Problem (Free Text): Admission Diagnosis/Problem Admission Diagnosis/Problem Hypoxia Subjective Update: The patient is a 70-year-old gentleman who has a history of dementia has been admitted to acute hospitalization on January 02, 2021 after prior treatment for COVID-19. Today the patient is awake but he does not respond verbally. He does not respond to my commands. The patient's eyes are open but he is not tracking. Functional Status: Reports: Pain Controlled. Denies: Tolerating Diet - Review of Systems Systems Review Comment:: The patient has not been able to supply any review of systems. - Patient Data Vitals - Most Recent: Last Vital Signs Temp 36.8 C 01/06/21 04:00 Pulse 115 H 01/05/21 21:00 Resp 23 H 01/06/21 06:00 BP 131/69 01/06/21 04:00 Pulse Ox 95 01/06/21 06:00 Weight - Most Recent: 89.63 kg I&O - Last 24 Hours: Intake & Output 01/05/21 01/06/21 01/06/21 22:59 06:59 14:59 Intake Total 1492 1822 Output Total 525 575 Balance 967 1247 Lab Results Last 24 Hours: Laboratory Results - last 24 hr 01/05/21 01/05/21 01/05/21 Range/Units 09:01 10:19 14:54 WBC (4.23-9.07) K/mm3 RBC (4.63-6.08) M/mm3 Hgb (13.7-17.5) gm/dl Hct (40.1-51.0) % MCV (79.0-92.2) fl MCH (25.7-32.2) pg MCHC (32.2-35.5) g/dl RDW Std Deviation (35.1-43.9) fL Plt Count (163-337) K/mm3 MPV (9.4-12.3) fl Neut % (Auto) (34.0-67.9) % Lymph % (Auto) (21.8-53.1) % Rhea % (Auto) (5.3-12.2) % Eos % (Auto) (0.8-7.0) Baso % (Auto) (0.1-1.2) % Neut # (Auto) (1.78-5.38) K/mm3 Lymph # (Auto) (1.32-3.57) K/mm3 Rhea # (Auto) (0.30-0.82) K/mm3 Eos # (Auto) (0.04-0.54) K/mm3 Baso # (Auto) (0.01-0.08) K/mm3 Manual Slide Review Puncture Site Rt radial ABG pH 7.61 H* (7.35-7.45) ABG pCO2 31.3 L (35.0-45.0) mmHg ABG pO2 50.0 L (80.0-100.0) mmHg ABG HCO3 31.6 H (22.0-26.0) meq/L ABG O2 Saturation 90.5 L (96.0-97.0) % ABG Base Excess 9.9 H (-2-2.0) A-a Gradient 196 mmHg O2 Delivery Device Hiflow nasal cannula Oxygen Flow Rate 45.0 FiO2 40.00 (21.00-100.00) % Sodium (136-145) mEq/L Potassium (3.5-5.1) mEq/L Chloride (98-107) mEq/L Carbon Dioxide (21-32) mEq/L Anion Gap (5-15) BUN (7-18) mg/dL Creatinine (0.7-1.3) mg/dL Est Cr Clr Drug Dosing mL/min Estimated GFR (MDRD) (>60) mL/min BUN/Creatinine Ratio (14-18) Glucose (70-99) mg/dL POC Glucose 170 H 134 H (70-99) mg/dL Calcium (8.5-10.1) mg/dL Total Bilirubin (0.2-1.0) mg/dL AST (15-37) U/L ALT (16-63) U/L Alkaline Phosphatase (46-116) U/L C-Reactive Protein (<1.0) mg/dL Total Protein (6.4-8.2) g/dl Albumin (3.4-5.0) g/dl Globulin gm/dL Albumin/Globulin Ratio (1-2) 01/05/21 01/06/21 01/06/21 Range/Units 20:18 02:48 06:52 WBC 18.28 H (4.23-9.07) K/mm3 RBC 3.70 L (4.63-6.08) M/mm3 Hgb 12.0 L (13.7-17.5) gm/dl Hct 37.6 L (40.1-51.0) % MCV 101.6 H (79.0-92.2) fl MCH 32.4 H (25.7-32.2) pg MCHC 31.9 L (32.2-35.5) g/dl RDW Std Deviation 48.3 H (35.1-43.9) fL Plt Count 180 (163-337) K/mm3 MPV 12.8 H (9.4-12.3) fl Neut % (Auto) 89.6 H (34.0-67.9) % Lymph % (Auto) 4.3 L (21.8-53.1) % Rhea % (Auto) 4.4 L (5.3-12.2) % Eos % (Auto) 1.1 (0.8-7.0) Baso % (Auto) 0.1 (0.1-1.2) % Neut # (Auto) 16.38 H (1.78-5.38) K/mm3 Lymph # (Auto) 0.79 L (1.32-3.57) K/mm3 Rhea # (Auto) 0.80 (0.30-0.82) K/mm3 Eos # (Auto) 0.21 (0.04-0.54) K/mm3 Baso # (Auto) 0.01 (0.01-0.08) K/mm3 Manual Slide Review Normal smear Puncture Site ABG pH (7.35-7.45) ABG pCO2 (35.0-45.0) mmHg ABG pO2 (80.0-100.0) mmHg ABG HCO3 (22.0-26.0) meq/L ABG O2 Saturation (96.0-97.0) % ABG Base Excess (-2-2.0) A-a Gradient mmHg O2 Delivery Device Oxygen Flow Rate FiO2 (21.00-100.00) % Sodium (136-145) mEq/L Potassium (3.5-5.1) mEq/L Chloride (98-107) mEq/L Carbon Dioxide (21-32) mEq/L Anion Gap (5-15) BUN (7-18) mg/dL Creatinine (0.7-1.3) mg/dL Est Cr Clr Drug Dosing mL/min Estimated GFR (MDRD) (>60) mL/min BUN/Creatinine Ratio (14-18) Glucose (70-99) mg/dL POC Glucose 125 H 149 H (70-99) mg/dL Calcium (8.5-10.1) mg/dL Total Bilirubin (0.2-1.0) mg/dL AST (15-37) U/L ALT (16-63) U/L Alkaline Phosphatase (46-116) U/L C-Reactive Protein (<1.0) mg/dL Total Protein (6.4-8.2) g/dl Albumin (3.4-5.0) g/dl Globulin gm/dL Albumin/Globulin Ratio (1-2) 01/06/21 01/06/21 Range/Units 06:52 08:05 WBC (4.23-9.07) K/mm3 RBC (4.63-6.08) M/mm3 Hgb (13.7-17.5) gm/dl Hct (40.1-51.0) % MCV (79.0-92.2) fl MCH (25.7-32.2) pg MCHC (32.2-35.5) g/dl RDW Std Deviation (35.1-43.9) fL Plt Count (163-337) K/mm3 MPV (9.4-12.3) fl Neut % (Auto) (34.0-67.9) % Lymph % (Auto) (21.8-53.1) % Rhea % (Auto) (5.3-12.2) % Eos % (Auto) (0.8-7.0) Baso % (Auto) (0.1-1.2) % Neut # (Auto) (1.78-5.38) K/mm3 Lymph # (Auto) (1.32-3.57) K/mm3 Rhea # (Auto) (0.30-0.82) K/mm3 Eos # (Auto) (0.04-0.54) K/mm3 Baso # (Auto) (0.01-0.08) K/mm3 Manual Slide Review Puncture Site ABG pH (7.35-7.45) ABG pCO2 (35.0-45.0) mmHg ABG pO2 (80.0-100.0) mmHg ABG HCO3 (22.0-26.0) meq/L ABG O2 Saturation (96.0-97.0) % ABG Base Excess (-2-2.0) A-a Gradient mmHg O2 Delivery Device Oxygen Flow Rate FiO2 (21.00-100.00) % Sodium 147 H (136-145) mEq/L Potassium 2.4 L* (3.5-5.1) mEq/L Chloride 108 H (98-107) mEq/L Carbon Dioxide 33 H (21-32) mEq/L Anion Gap 8.4 (5-15) BUN 30 H (7-18) mg/dL Creatinine 1.3 (0.7-1.3) mg/dL Est Cr Clr Drug Dosing 50.14 mL/min Estimated GFR (MDRD) 55 (>60) mL/min BUN/Creatinine Ratio 23.1 H (14-18) Glucose 150 H (70-99) mg/dL POC Glucose 125 H (70-99) mg/dL Calcium 7.8 L (8.5-10.1) mg/dL Total Bilirubin 0.9 (0.2-1.0) mg/dL AST 115 H (15-37) U/L ALT 98 H (16-63) U/L Alkaline Phosphatase 53 (46-116) U/L C-Reactive Protein 6.9 H* (<1.0) mg/dL Total Protein 5.5 L (6.4-8.2) g/dl Albumin 1.6 L (3.4-5.0) g/dl Globulin 3.9 gm/dL Albumin/Globulin Ratio 0.4 L (1-2) Med Orders - Current: Current Medications Acetaminophen (Acetaminophen 325 Mg Tab) 650 mg PO Q6H PRN PRN Reason: Pain (Mild 1-3)/fever Albuterol/Ipratropium (Albuterol/Ipratropium 3.0-0.5 Mg/3 Ml Neb Soln) 3 ml NEB Q4H PRN PRN Reason: Shortness Of Breath/wheezing Last Admin: 01/06/21 02:12 Dose: 3 ml Documented by: Atorvastatin Calcium (Atorvastatin 40 Mg Tab) 40 mg PO BEDTIME [facility] Last Admin: 01/05/21 20:01 Dose: Not Given Documented by: Bupropion HCl (Bupropion 150 Mg Tab.Er) 150 mg PO DAILY [facility] Last Admin: 01/06/21 08:18 Dose: Not Given Documented by: Cholecalciferol (Cholecalciferol (Vitamin D3) 25 Mcg Tab) 25 mcg PO DAILY [facility] Last Admin: 01/06/21 08:18 Dose: Not Given Documented by: Docusate Sodium (Docusate Sodium 100 Mg Cap) 100 mg PO BID [facility] Last Admin: 01/06/21 08:17 Dose: Not Given Documented by: Enoxaparin Sodium (Enoxaparin 80 Mg/0.8 Ml Syringe) 80 mg SUBCUT BID [facility] Last Admin: 01/06/21 08:06 Dose: 80 mg Documented by: Furosemide (Furosemide 20 Mg/2 Ml Vial) 20 mg IVPUSH DAILY [facility] Last Admin: 01/06/21 08:06 Dose: 20 mg Documented by: Hydralazine HCl (Hydralazine 20 Mg/Ml Sdv) 10 mg IVPUSH Q4H PRN PRN Reason: Hypertension Last Admin: 01/02/21 22:07 Dose: 10 mg Documented by: Promethazine HCl 12.5 mg/ (Sodium Chloride) 50.5 mls @ 100 mls/hr IV Q6H PRN PRN Reason: Nausea/Vomiting Piperacillin Sod/Tazobactam (Sod 4.5 gm/ Sodium Chloride) 100 mls @ 25 mls/hr IV Q8H [facility] Last Admin: 01/06/21 04:26 Dose: 25 mls/hr Documented by: Fat Emulsion Intravenous (Intralipid 20%) 500 mls @ 62.5 mls/hr IV MoWeFr [facility] Last Admin: 01/04/21 15:32 Dose: 62.5 mls/hr Documented by: Potassium Chloride 20 meq/ (Dextrose/Water) 1,010 mls @ 175 mls/hr IV Q6H [facility] Last Admin: 01/06/21 09:01 Dose: 175 mls/hr Documented by: Insulin Human Lispro (Insulin Lispro 100 Unit/Ml 10 Ml Vial) 0 unit SUBCUT Q6H [facility]; Protocol Last Admin: 01/06/21 08:07 Dose: Not Given Documented by: Memantine (Memantine 10 Mg Tab) 10 mg PO BID [facility] Last Admin: 01/06/21 08:18 Dose: Not Given Documented by: Metoprolol Tartrate (Metoprolol Tartrate 5 Mg/5 Ml Sdv) 5 mg IVPUSH Q3H PRN PRN Reason: Tachycardia Last Admin: 01/05/21 21:00 Dose: 5 mg Documented by: Pantoprazole Sodium (Pantoprazole 40 Mg Vial) 40 mg IVPUSH BEDTIME [facility] Last Admin: 01/05/21 20:52 Dose: 40 mg Documented by: Sodium Chloride (Sodium Chloride 0.9% 10 Ml Syringe) 10 ml FLUSH ASDIRECTED PRN PRN Reason: Keep Vein Open Last Admin: 01/01/21 23:57 Dose: 10 ml Documented by: Discontinued Medications Albuterol/Ipratropium (Albuterol/Ipratropium 3.0-0.5 Mg/3 Ml Neb Soln) 3 ml NEB ONETIME ONE Stop: 01/01/21 23:15 Last Admin: 01/01/21 23:37 Dose: 3 ml Documented by: Dexamethasone (Dexamethasone 4 Mg/Ml Sdv) 6 mg IVPUSH ONETIME ONE Stop: 01/01/21 23:14 Last Admin: 01/01/21 23:57 Dose: 6 mg Documented by: Heparin Sodium (Porcine) (Heparin Sodium 5,000 Units/Ml Vial) 5,000 units SUBCUT Q8H [facility] Last Admin: 01/02/21 15:17 Dose: 5,000 units Documented by: Sodium Chloride (Normal Saline) 1,000 mls @ 125 mls/hr IV ASDIRECTED [facility] Last Admin: 01/01/21 23:56 Dose: 125 mls/hr Documented by: Sodium Chloride (Normal Saline) 1,000 mls @ 1,000 mls/hr IV ONETIME ONE Stop: 01/02/21 01:02 Last Admin: 01/02/21 00:17 Dose: 1,000 mls/hr Documented by: Ceftriaxone Sodium 2 gm/ (Sodium Chloride) 100 mls @ 200 mls/hr IV ONETIME ONE Stop: 01/02/21 01:26 Last Admin: 01/02/21 01:17 Dose: 200 mls/hr Documented by: Sodium Chloride (Normal Saline) 1,000 mls @ 1,000 mls/hr IV ONETIME ONE Stop: 01/02/21 02:10 Last Admin: 01/02/21 01:18 Dose: 1,000 mls/hr Documented by: Lactated Ringer's (Ringers, Lactated) 1,000 mls @ 1,000 mls/hr IV .BOLUS ONE Stop: 01/02/21 02:10 Last Admin: 01/02/21 02:52 Dose: 1,000 mls/hr Documented by: Ceftriaxone Sodium 1 gm/ (Sodium Chloride) 100 mls @ 200 mls/hr IV Q24H [facility] Potassium Chloride/Sodium Chloride (Normal Saline With 20 Meq Kcl) 1,000 mls @ 75 mls/hr IV ASDIRECTED [facility] Last Admin: 01/02/21 15:20 Dose: 75 mls/hr Documented by: Piperacillin Sod/Tazobactam (Sod 4.5 gm/ Sodium Chloride) 100 mls @ 200 mls/hr IV ONETIME ONE Stop: 01/02/21 16:29 Last Admin: 01/02/21 15:26 Dose: 200 mls/hr Documented by: Piperacillin Sod/Tazobactam (Sod 4.5 gm/ Sodium Chloride) 100 mls @ 25 mls/hr IV Q8H [facility] Last Admin: 01/03/21 19:47 Dose: 25 mls/hr Documented by: Potassium Cl/Dextrose/Lact Ringer's (D5 Lr With 20 Meq Kcl) 1,000 mls @ 65 mls/hr IV ASDIRECTED [facility] Last Admin: 01/02/21 17:29 Dose: 65 mls/hr Documented by: Potassium Chloride 20 meq/ (Dextrose/Water) 1,010 mls @ 101 mls/hr IV ASDIRECTED [facility] Potassium Chloride 20 meq/ (Dextrose/Water) 1,010 mls @ 101 mls/hr IV Q10H [facility] Last Admin: 01/04/21 23:31 Dose: Not Given Documented by: Potassium Chloride 20 meq/ (Dextrose/Water) 1,010 mls @ 150 mls/hr IV Q6H [facility] Stop: 01/04/21 18:00 Last Admin: 01/04/21 20:30 Dose: Not Given Documented by: Multivitamins/Minerals 10 ml/Amino Ac/Electrol/Dextrose/Calcium 1,010 mls @ 40 mls/hr IV TITRATE [facility] Stop: 01/05/21 14:59 Last Infusion: 01/05/21 09:32 Dose: 0 mls/hr Documented by: Non-Formulary Medication (Nf Drug) 520 mls @ 55 mls/hr .XX ONETIME ONE Stop: 01/05/21 12:27 Last Admin: 01/05/21 03:53 Dose: Not Given Documented by: Potassium Chloride 20 meq/ (Dextrose/Water) 1,010 mls @ 100 mls/hr IV Q20H [facility] Stop: 01/05/21 12:00 Last Infusion: 01/05/21 09:33 Dose: 150 mls/hr Documented by: Potassium Chloride 10 meq/ (Premix) 100 mls @ 100 mls/hr IV Q1H [facility] Stop: 01/04/21 16:59 Last Admin: 01/04/21 16:32 Dose: 100 mls/hr Documented by: Potassium Chloride 10 meq/ (Premix) 100 mls @ 100 mls/hr IV Q1H [facility] Stop: 01/05/21 14:59 Last Admin: 01/05/21 15:29 Dose: 100 mls/hr Documented by: Dextrose/Water (Dextrose 5% In Water) 1,000 mls @ 100 mls/hr IV ASDIRECTED [facility] Dextrose/Water (Dextrose 5% In Water) 1,000 mls @ 150 mls/hr IV ASDIRECTED [facility] Last Admin: 01/06/21 07:24 Dose: 150 mls/hr Documented by: Non-Formulary Medication (Nf Drug) 520 mls @ 0 mls/hr .XX ONETIME ONE Stop: 01/05/21 09:16 Last Admin: 01/05/21 09:35 Dose: Not Given Documented by: Metoprolol Tartrate (Metoprolol Tartrate 5 Mg/5 Ml Sdv) 2.5 mg IVPUSH Q2H PRN PRN Reason: Tachycardia Last Admin: 01/03/21 08:25 Dose: 2.5 mg Documented by: Metoprolol Tartrate (Metoprolol Tartrate 5 Mg/5 Ml Sdv) 5 mg IVPUSH Q4H PRN PRN Reason: Tachycardia Last Admin: 01/05/21 18:00 Dose: 5 mg Documented by: Morphine Sulfate (Morphine 2 Mg/Ml Syringe) 2 mg IVPUSH Q4H PRN PRN Reason: Pain (severe 7-10) Stop: 01/03/21 14:24 Last Admin: 01/02/21 22:49 Dose: 2 mg Documented by: Pantoprazole Sodium (Pantoprazole 40 Mg Tab.Cr) 40 mg PO ACBREAKFAST [facility] Last Admin: 01/05/21 05:31 Dose: Not Given Documented by: Risperidone (Risperidone 0.25 Mg Tab) 0.25 mg PO DAILY [facility] Risperidone (Risperidone 1 Mg Tab) 1 mg PO BEDTIME [facility] - Exam Quality Assessment: Supplemental Oxygen, Central Line/PICC, Urine Catheter, DVT Prophylaxis Central Line Total Time: 1Days 18Hours Urinary Catheter Total Time: 3Days 13Hours General: No Acute Distress. No: Alert, Oriented HEENT: Pupils Equal, Pupils Reactive Neck: Supple, Trachea Midline Lungs: Decreased Breath Sounds, Rales (Bibasilar) Cardiovascular: Regular Rate, Irregular Rhythm GI/Abdominal Exam: Normal Bowel Sounds, Soft, Non-Tender, No Distention Back Exam: No: Normal Inspection (Patient unable to set up) Extremities: No: Normal Inspection, Normal Range of Motion Skin: Warm, Dry, Intact Neurological: Other (Altered mental status) Psy/Mental Status: No: Alert, Normal Affect - Patient Data Lab Results Last 24 hrs: Laboratory Results - last 24 hr 01/05/21 01/05/21 01/05/21 Range/Units 09:01 10:19 14:54 WBC (4.23-9.07) K/mm3 RBC (4.63-6.08) M/mm3 Hgb (13.7-17.5) gm/dl Hct (40.1-51.0) % MCV (79.0-92.2) fl MCH (25.7-32.2) pg MCHC (32.2-35.5) g/dl RDW Std Deviation (35.1-43.9) fL Plt Count (163-337) K/mm3 MPV (9.4-12.3) fl Neut % (Auto) (34.0-67.9) % Lymph % (Auto) (21.8-53.1) % Rhea % (Auto) (5.3-12.2) % Eos % (Auto) (0.8-7.0) Baso % (Auto) (0.1-1.2) % Neut # (Auto) (1.78-5.38) K/mm3 Lymph # (Auto) (1.32-3.57) K/mm3 Rhea # (Auto) (0.30-0.82) K/mm3 Eos # (Auto) (0.04-0.54) K/mm3 Baso # (Auto) (0.01-0.08) K/mm3 Manual Slide Review Puncture Site Rt radial ABG pH 7.61 H* (7.35-7.45) ABG pCO2 31.3 L (35.0-45.0) mmHg ABG pO2 50.0 L (80.0-100.0) mmHg ABG HCO3 31.6 H (22.0-26.0) meq/L ABG O2 Saturation 90.5 L (96.0-97.0) % ABG Base Excess 9.9 H (-2-2.0) A-a Gradient 196 mmHg O2 Delivery Device Hiflow nasal cannula Oxygen Flow Rate 45.0 FiO2 40.00 (21.00-100.00) % Sodium (136-145) mEq/L Potassium (3.5-5.1) mEq/L Chloride (98-107) mEq/L Carbon Dioxide (21-32) mEq/L Anion Gap (5-15) BUN (7-18) mg/dL Creatinine (0.7-1.3) mg/dL Est Cr Clr Drug Dosing mL/min Estimated GFR (MDRD) (>60) mL/min BUN/Creatinine Ratio (14-18) Glucose (70-99) mg/dL POC Glucose 170 H 134 H (70-99) mg/dL Calcium (8.5-10.1) mg/dL Total Bilirubin (0.2-1.0) mg/dL AST (15-37) U/L ALT (16-63) U/L Alkaline Phosphatase (46-116) U/L C-Reactive Protein (<1.0) mg/dL Total Protein (6.4-8.2) g/dl Albumin (3.4-5.0) g/dl Globulin gm/dL Albumin/Globulin Ratio (1-2) 01/05/21 01/06/21 01/06/21 Range/Units 20:18 02:48 06:52 WBC 18.28 H (4.23-9.07) K/mm3 RBC 3.70 L (4.63-6.08) M/mm3 Hgb 12.0 L (13.7-17.5) gm/dl Hct 37.6 L (40.1-51.0) % MCV 101.6 H (79.0-92.2) fl MCH 32.4 H (25.7-32.2) pg MCHC 31.9 L (32.2-35.5) g/dl RDW Std Deviation 48.3 H (35.1-43.9) fL Plt Count 180 (163-337) K/mm3 MPV 12.8 H (9.4-12.3) fl Neut % (Auto) 89.6 H (34.0-67.9) % Lymph % (Auto) 4.3 L (21.8-53.1) % Rhea % (Auto) 4.4 L (5.3-12.2) % Eos % (Auto) 1.1 (0.8-7.0) Baso % (Auto) 0.1 (0.1-1.2) % Neut # (Auto) 16.38 H (1.78-5.38) K/mm3 Lymph # (Auto) 0.79 L (1.32-3.57) K/mm3 Rhea # (Auto) 0.80 (0.30-0.82) K/mm3 Eos # (Auto) 0.21 (0.04-0.54) K/mm3 Baso # (Auto) 0.01 (0.01-0.08) K/mm3 Manual Slide Review Normal smear Puncture Site ABG pH (7.35-7.45) ABG pCO2 (35.0-45.0) mmHg ABG pO2 (80.0-100.0) mmHg ABG HCO3 (22.0-26.0) meq/L ABG O2 Saturation (96.0-97.0) % ABG Base Excess (-2-2.0) A-a Gradient mmHg O2 Delivery Device Oxygen Flow Rate FiO2 (21.00-100.00) % Sodium (136-145) mEq/L Potassium (3.5-5.1) mEq/L Chloride (98-107) mEq/L Carbon Dioxide (21-32) mEq/L Anion Gap (5-15) BUN (7-18) mg/dL Creatinine (0.7-1.3) mg/dL Est Cr Clr Drug Dosing mL/min Estimated GFR (MDRD) (>60) mL/min BUN/Creatinine Ratio (14-18) Glucose (70-99) mg/dL POC Glucose 125 H 149 H (70-99) mg/dL Calcium (8.5-10.1) mg/dL Total Bilirubin (0.2-1.0) mg/dL AST (15-37) U/L ALT (16-63) U/L Alkaline Phosphatase (46-116) U/L C-Reactive Protein (<1.0) mg/dL Total Protein (6.4-8.2) g/dl Albumin (3.4-5.0) g/dl Globulin gm/dL Albumin/Globulin Ratio (1-2) 01/06/21 01/06/21 Range/Units 06:52 08:05 WBC (4.23-9.07) K/mm3 RBC (4.63-6.08) M/mm3 Hgb (13.7-17.5) gm/dl Hct (40.1-51.0) % MCV (79.0-92.2) fl MCH (25.7-32.2) pg MCHC (32.2-35.5) g/dl RDW Std Deviation (35.1-43.9) fL Plt Count (163-337) K/mm3 MPV (9.4-12.3) fl Neut % (Auto) (34.0-67.9) % Lymph % (Auto) (21.8-53.1) % Rhea % (Auto) (5.3-12.2) % Eos % (Auto) (0.8-7.0) Baso % (Auto) (0.1-1.2) % Neut # (Auto) (1.78-5.38) K/mm3 Lymph # (Auto) (1.32-3.57) K/mm3 Rhea # (Auto) (0.30-0.82) K/mm3 Eos # (Auto) (0.04-0.54) K/mm3 Baso # (Auto) (0.01-0.08) K/mm3 Manual Slide Review Puncture Site ABG pH (7.35-7.45) ABG pCO2 (35.0-45.0) mmHg ABG pO2 (80.0-100.0) mmHg ABG HCO3 (22.0-26.0) meq/L ABG O2 Saturation (96.0-97.0) % ABG Base Excess (-2-2.0) A-a Gradient mmHg O2 Delivery Device Oxygen Flow Rate FiO2 (21.00-100.00) % Sodium 147 H (136-145) mEq/L Potassium 2.4 L* (3.5-5.1) mEq/L Chloride 108 H (98-107) mEq/L Carbon Dioxide 33 H (21-32) mEq/L Anion Gap 8.4 (5-15) BUN 30 H (7-18) mg/dL Creatinine 1.3 (0.7-1.3) mg/dL Est Cr Clr Drug Dosing 50.14 mL/min Estimated GFR (MDRD) 55 (>60) mL/min BUN/Creatinine Ratio 23.1 H (14-18) Glucose 150 H (70-99) mg/dL POC Glucose 125 H (70-99) mg/dL Calcium 7.8 L (8.5-10.1) mg/dL Total Bilirubin 0.9 (0.2-1.0) mg/dL AST 115 H (15-37) U/L ALT 98 H (16-63) U/L Alkaline Phosphatase 53 (46-116) U/L C-Reactive Protein 6.9 H* (<1.0) mg/dL Total Protein 5.5 L (6.4-8.2) g/dl Albumin 1.6 L (3.4-5.0) g/dl Globulin 3.9 gm/dL Albumin/Globulin Ratio 0.4 L (1-2) Result Diagrams: 01/06/21 06:52 01/06/21 06:52 Sepsis Event Note - Evaluation Sepsis Screening Result: Severe Sepsis Risk - Focused Exam Vital Signs: Vital Signs Temp Resp BP Pulse Ox Pulse Ox 01/06/21 06:00 23 H 95 01/06/21 05:19 94 L 01/06/21 05:00 34 H 97 01/06/21 04:00 36.8 C 24 H 131/69 91 L 01/06/21 03:00 38 H 90 L 01/06/21 02:12 91 L 01/06/21 02:00 29 H 86 L 01/06/21 01:00 22 H 92 L 01/06/21 00:00 36.9 C 27 H 104/64 94 L 01/05/21 23:00 28 H 91 L 01/05/21 22:00 27 H 93 L 01/05/21 21:39 115/66 01/05/21 21:25 92 L - Problem List & Annotations (1) Sepsis SNOMED Code(s): 76355569 Code(s): A41.9 - SEPSIS, UNSPECIFIED ORGANISM Status: Acute Priority: High Current Visit: Yes Qualifiers: Sepsis type: sepsis due to unspecified organism Sepsis acute organ dysfunction status: unspecified Qualified Code(s): A41.9 - Sepsis, unspecified organism (2) Renal insufficiency SNOMED Code(s): 809908027, 016871972 Code(s): N28.9 - DISORDER OF KIDNEY AND URETER, UNSPECIFIED Status: Chronic Priority: High Current Visit: Yes (3) UTI (urinary tract infection) SNOMED Code(s): 20834954 Code(s): N39.0 - URINARY TRACT INFECTION, SITE NOT SPECIFIED Status: Acute Priority: High Current Visit: Yes Qualifiers: Urinary tract infection type: acute cystitis Hematuria presence: without hematuria Qualified Code(s): N30.00 - Acute cystitis without hematuria (4) Alzheimer's dementia without behavioral disturbance SNOMED Code(s): 09218908 Code(s): G30.9 - ALZHEIMER'S DISEASE, UNSPECIFIED; F02.80 - DEMENTIA IN OTH DISEASES CLASSD ELSWHR W/O BEHAVRL DISTURB Status: Chronic Current Visit: Yes Qualifiers: Alzheimer's disease onset: unspecified onset Qualified Code(s): G30.9 - Alzheimer's disease, unspecified; F02.80 - Dementia in other diseases classified elsewhere without behavioral disturbance (5) Hypernatremia SNOMED Code(s): 048253647 Code(s): E87.0 - HYPEROSMOLALITY AND HYPERNATREMIA Status: Acute Priority: High Current Visit: Yes (6) Hypokalemia SNOMED Code(s): 00679221 Code(s): E87.6 - HYPOKALEMIA Status: Acute Current Visit: Yes - Problem List Review Problem List Initiated/Reviewed/Updated: Yes - My Orders Last 24 Hours: My Active Orders 01/06/21 08:30 Potassium Chloride 20 meq Dextrose 5% in Water 1,000 ml IV Q6H - Assessment Assessment:: The patient is a 70-year-old gentleman who will be retained in ICU care secondary to his sepsis. The patient's TPN has been started as discussed with pharmacist. Repeat laboratory studies have been ordered. The patient's potassium has been replaced. He will continue on D5 and water to help improve his hypernatremia.The patient is currently anticoagulated with Lovenox at treatment dose to be continued. The patient's antihypertensive medications that have been oral have been on hold. The patient's blood pressure we monitored and his antihypertensives adjusted as necessary. Family members have not been around during rounds and more information will needed to be obtained regarding patient's mental status and he has resuscitation status. The patient's stay of hospitalization is uncertain at this time. The patient has been retained longer than 96 hours due to his sepsis and his hypernatremia requiring slow adjustment. - Plan Plan:: Patient is a 70-year-old male with a history of diabetes and Alzheimer's dementia who was brought to the ER from [facility] due to altered mental status. AMS Etiology unknown. Could be due to sepsis, metabolic events, hypernatremia, TIA/stroke CT of head - unable to complete Brunson catheter (sister agreed to have brunson) Alzheimer's dementia Continue home medication memantine Acute hypoxic and hypercapnic respiratory failure Patient had been on 2 L since the positive Covid 19 test 10 days ago. He increased in need of oxygen the day before admission ABG - ph 7.28, pCO2 71 on admission Bipap prn to keep PCO2 < 50 and SPO2 > 90% Etiology for CO2 retention unknown. CT of chest was ordered but is not able to do due to patient condition and BiPAP Troponin-mild elevation BNP 1064 Sepsis 2nd to UTI Tachycardia and tachypnea Continue IV fluid IV antibiotic Blood culture no growth Urine culture UTI Urinalysis compatible with UTI Zosyn 2.25 g every 6 hour Positive Covid 19 Had a positive COVID-19 test 10 days ago before admission received Regeneron I would not like to initiate remdesivir at this moment I would not like you to initiate a steroid at this moment since he has bacterial sepsis. His CRP is trending down to 9.5 today D-dimer elevated. continue Lovenox 80 mg twice daily Inhalers Chest x-ray-no acute change Chest CT was ordered Dehydration 3 L normal saline were given in the ER Continue IV fluid ASHLEY, creatinine 1.3 on 12/22/2020 Etiologies including prerenal cause, sepsis, ATN Creatinine 1.5 today Avoid nephrotoxic meds and contrast Repeat renal function in the morning disposition Elevation of D-dimer Could be due to COVID-19 infection or thromboembolic events Lovenox 80 mg twice daily Elevation of troponin 0.102-> 0.114-> 0.162 BNP 1064 Echocardiogram Discussed with sister Gaby (POA) who refused to transfer him to higher level hospital. Aspirin and Lipitor (but patient is not able to take the oral medications) Nutrition Sister Gaby would like to initiate the nutrition for him I feel that NG tube would increase the risk for aspiration. She agreed to have TPN PICC line was placed and TPN was initiated yesterday. Will discuss with sister Gaby PEG tube feeding Hypernatremia 156 today [id number] KCl 150ml/hr TPN is temporarily on hold today. I would like her to correct hypernatremia fi rst. DVT prophylaxis: Lovenox CODE STATUS: DNR/DNI Discussed with Sister Gaby who initially would like to have CPR only but she called us back later she and her family would like to have DNR/DNI. Disposition: TBD
[2021-01-06] MEDS ORDERED: MVI, Adult with Vitamin K 10 ML in AA 5%/Calcium/D20W/Lytes 1,000 ML IV SCH ×2 (12:00)
[2021-01-06] MEDS ORDERED: Potassium Chloride 10 MEQ in Premix Bag 1 BAG IV SCH (12:00)
[2021-01-06] MEDS: Potassium Chloride 20 MEQ in Dextrose 5% in Water 1,000 ML IV SCH ×4 (13:22→15:54)
[2021-01-06] MEDS ORDERED: Fat Emulsion 500 ML IV SCH (15:00)
[2021-01-06] MEDS: Metoprolol Tartrate 5 MG/5 ML SDV IVPUSH PRN ×2 (18:10→21:25)
[2021-01-06] MEDS: Pantoprazole 40 MG Vial IVPUSH SCH (20:26)
[2021-01-07] MEDS: Potassium Chloride 20 MEQ in Dextrose 5% in Water 1,000 ML IV SCH ×6 (01:48→13:42)
[2021-01-07] MEDS: Insulin Lispro 100 UNIT/ML 10 ML Vial SUBCUT SCH ×4 (03:53→20:42)
[2021-01-07] MEDS: Piperacillin/Tazobactam 4.5 GM in Sodium Chloride 0.9% 100 ML IV SCH ×3 (03:54→20:40)
--- NOTE | 2021-01-07 07:35 | PCM.PN ---
- General Info Date of Service: 01/07/21 Admission Dx/Problem (Free Text): Admission Diagnosis/Problem Admission Diagnosis/Problem Hypoxia Subjective Update: The patient is a 70-year-old gentleman who was admitted to acute hospitalization on January 02, 2021 due to altered mental status. The patient had been normally minimally responsive but has remained nonverbal and nonresponsive to commands. The patient had a positive COVID-19 test approximately 10 days before presentation and had been given Regeneron. The patient today is awake but he is still nonverbal and not responsive to oral commands. Functional Status: Reports: Pain Controlled. Denies: Tolerating Diet - Review of Systems Systems Review Comment:: Not obtainable due to the patient's altered mental status and dementia. - Patient Data Vitals - Most Recent: Last Vital Signs Temp 36.0 C L 01/07/21 04:00 Pulse 107 H 01/07/21 04:00 Resp 30 H 01/07/21 04:00 BP 111/66 01/07/21 04:00 Pulse Ox 95 01/07/21 06:01 Weight - Most Recent: 88.995 kg I&O - Last 24 Hours: Intake & Output 01/06/21 01/07/21 01/07/21 22:59 06:59 14:59 Intake Total 1230 2114 Output Total 950 700 Balance 280 1414 Lab Results Last 24 Hours: Laboratory Results - last 24 hr 01/06/21 01/06/21 01/06/21 Range/Units 06:52 06:52 08:05 WBC 18.28 H (4.23-9.07) K/mm3 RBC 3.70 L (4.63-6.08) M/mm3 Hgb 12.0 L (13.7-17.5) gm/dl Hct 37.6 L (40.1-51.0) % MCV 101.6 H (79.0-92.2) fl MCH 32.4 H (25.7-32.2) pg MCHC 31.9 L (32.2-35.5) g/dl RDW Std Deviation 48.3 H (35.1-43.9) fL Plt Count 180 (163-337) K/mm3 MPV 12.8 H (9.4-12.3) fl Neut % (Auto) 89.6 H (34.0-67.9) % Lymph % (Auto) 4.3 L (21.8-53.1) % [place] % (Auto) 4.4 L (5.3-12.2) % Eos % (Auto) 1.1 (0.8-7.0) Baso % (Auto) 0.1 (0.1-1.2) % Neut # (Auto) 16.38 H (1.78-5.38) K/mm3 Lymph # (Auto) 0.79 L (1.32-3.57) K/mm3 [place] # (Auto) 0.80 (0.30-0.82) K/mm3 Eos # (Auto) 0.21 (0.04-0.54) K/mm3 Baso # (Auto) 0.01 (0.01-0.08) K/mm3 Manual Slide Review Normal smear Sodium 147 H (136-145) mEq/L Potassium 2.4 L* (3.5-5.1) mEq/L Chloride 108 H (98-107) mEq/L Carbon Dioxide 33 H (21-32) mEq/L Anion Gap 8.4 (5-15) BUN 30 H (7-18) mg/dL Creatinine 1.3 (0.7-1.3) mg/dL Est Cr Clr Drug Dosing 50.14 mL/min Estimated GFR (MDRD) 55 (>60) mL/min BUN/Creatinine Ratio 23.1 H (14-18) Glucose 150 H (70-99) mg/dL POC Glucose 125 H (70-99) mg/dL Calcium 7.8 L (8.5-10.1) mg/dL Total Bilirubin 0.9 (0.2-1.0) mg/dL AST 115 H (15-37) U/L ALT 98 H (16-63) U/L Alkaline Phosphatase 53 (46-116) U/L C-Reactive Protein 6.9 H* (<1.0) mg/dL Total Protein 5.5 L (6.4-8.2) g/dl Albumin 1.6 L (3.4-5.0) g/dl Globulin 3.9 gm/dL Albumin/Globulin Ratio 0.4 L (1-2) 01/06/21 01/06/21 01/07/21 Range/Units 15:10 20:38 03:46 WBC (4.23-9.07) K/mm3 RBC (4.63-6.08) M/mm3 Hgb (13.7-17.5) gm/dl Hct (40.1-51.0) % MCV (79.0-92.2) fl MCH (25.7-32.2) pg MCHC (32.2-35.5) g/dl RDW Std Deviation (35.1-43.9) fL Plt Count (163-337) K/mm3 MPV (9.4-12.3) fl Neut % (Auto) (34.0-67.9) % Lymph % (Auto) (21.8-53.1) % [place] % (Auto) (5.3-12.2) % Eos % (Auto) (0.8-7.0) Baso % (Auto) (0.1-1.2) % Neut # (Auto) (1.78-5.38) K/mm3 Lymph # (Auto) (1.32-3.57) K/mm3 [place] # (Auto) (0.30-0.82) K/mm3 Eos # (Auto) (0.04-0.54) K/mm3 Baso # (Auto) (0.01-0.08) K/mm3 Manual Slide Review Sodium (136-145) mEq/L Potassium (3.5-5.1) mEq/L Chloride (98-107) mEq/L Carbon Dioxide (21-32) mEq/L Anion Gap (5-15) BUN (7-18) mg/dL Creatinine (0.7-1.3) mg/dL Est Cr Clr Drug Dosing mL/min Estimated GFR (MDRD) (>60) mL/min BUN/Creatinine Ratio (14-18) Glucose (70-99) mg/dL POC Glucose 160 H 197 H 228 H (70-99) mg/dL Calcium (8.5-10.1) mg/dL Total Bilirubin (0.2-1.0) mg/dL AST (15-37) U/L ALT (16-63) U/L Alkaline Phosphatase (46-116) U/L C-Reactive Protein (<1.0) mg/dL Total Protein (6.4-8.2) g/dl Albumin (3.4-5.0) g/dl Globulin gm/dL Albumin/Globulin Ratio (1-2) 01/07/21 01/07/21 Range/Units 04:43 04:43 WBC 18.74 H (4.23-9.07) K/mm3 RBC 4.03 L (4.63-6.08) M/mm3 Hgb 13.1 L (13.7-17.5) gm/dl Hct 39.5 L (40.1-51.0) % MCV 98.0 H D (79.0-92.2) fl MCH 32.5 H (25.7-32.2) pg MCHC 33.2 (32.2-35.5) g/dl RDW Std Deviation 44.0 H (35.1-43.9) fL Plt Count 205 (163-337) K/mm3 MPV 12.7 H (9.4-12.3) fl Neut % (Auto) 87.8 H (34.0-67.9) % Lymph % (Auto) 3.8 L (21.8-53.1) % [place] % (Auto) 5.3 (5.3-12.2) % Eos % (Auto) 1.1 (0.8-7.0) Baso % (Auto) 0.2 (0.1-1.2) % Neut # (Auto) 16.45 H (1.78-5.38) K/mm3 Lymph # (Auto) 0.72 L (1.32-3.57) K/mm3 [place] # (Auto) 1.00 H (0.30-0.82) K/mm3 Eos # (Auto) 0.21 (0.04-0.54) K/mm3 Baso # (Auto) 0.03 (0.01-0.08) K/mm3 Manual Slide Review Abnormal smear Sodium 143 (136-145) mEq/L Potassium 2.7 L (3.5-5.1) mEq/L Chloride 103 (98-107) mEq/L Carbon Dioxide 32 (21-32) mEq/L Anion Gap 10.7 (5-15) BUN 20 H (7-18) mg/dL Creatinine 1.3 (0.7-1.3) mg/dL Est Cr Clr Drug Dosing 50.14 mL/min Estimated GFR (MDRD) 55 (>60) mL/min BUN/Creatinine Ratio 15.4 (14-18) Glucose 225 H (70-99) mg/dL POC Glucose (70-99) mg/dL Calcium 7.8 L (8.5-10.1) mg/dL Total Bilirubin 0.9 (0.2-1.0) mg/dL AST 101 H (15-37) U/L ALT 134 H (16-63) U/L Alkaline Phosphatase 68 (46-116) U/L C-Reactive Protein 8.2 H* (<1.0) mg/dL Total Protein 6.0 L (6.4-8.2) g/dl Albumin 1.7 L (3.4-5.0) g/dl Globulin 4.3 gm/dL Albumin/Globulin Ratio 0.4 L (1-2) Raj Results Last 24 Hours: Microbiology 01/01/21 23:40 Blood Culture - Final Blood - Venous - Lab Draw 01/01/21 23:25 Blood Culture - Final Blood - Venous Med Orders - Current: Current Medications Albuterol/Ipratropium (Albuterol/Ipratropium 3.0-0.5 Mg/3 Ml Neb Soln) 3 ml NEB Q4H PRN PRN Reason: Shortness Of Breath/wheezing Last Admin: 01/06/21 21:34 Dose: 3 ml Documented by: Enoxaparin Sodium (Enoxaparin 80 Mg/0.8 Ml Syringe) 80 mg SUBCUT BID [facility] Last Admin: 01/06/21 20:25 Dose: 80 mg Documented by: Furosemide (Furosemide 20 Mg/2 Ml Vial) 20 mg IVPUSH DAILY [facility] Last Admin: 01/06/21 08:06 Dose: 20 mg Documented by: Hydralazine HCl (Hydralazine 20 Mg/Ml Sdv) 10 mg IVPUSH Q4H PRN PRN Reason: Hypertension Last Admin: 01/02/21 22:07 Dose: 10 mg Documented by: Promethazine HCl 12.5 mg/ (Sodium Chloride) 50.5 mls @ 100 mls/hr IV Q6H PRN PRN Reason: Nausea/Vomiting Piperacillin Sod/Tazobactam (Sod 4.5 gm/ Sodium Chloride) 100 mls @ 25 mls/hr IV Q8H [facility] Last Admin: 01/07/21 03:54 Dose: 25 mls/hr Documented by: Fat Emulsion Intravenous (Intralipid 20%) 500 mls @ 62.5 mls/hr IV MoWeFr [facility] Last Admin: 01/06/21 15:28 Dose: 62.5 mls/hr Documented by: Multivitamins/Minerals 10 ml/Amino Ac/Electrol/Dextrose/Calcium 1,010 mls @ 40 mls/hr IV Q24H [facility] Stop: 01/07/21 11:59 Last Admin: 01/06/21 12:29 Dose: 40 mls/hr Documented by: Potassium Chloride 20 meq/ (Dextrose/Water) 1,010 mls @ 100 mls/hr IV Q10H [facility] Insulin Human Lispro (Insulin Lispro 100 Unit/Ml 10 Ml Vial) 0 unit SUBCUT Q6H [facility]; Protocol Last Admin: 01/07/21 03:53 Dose: 4 units Documented by: Metoprolol Tartrate (Metoprolol Tartrate 5 Mg/5 Ml Sdv) 5 mg IVPUSH Q3H PRN PRN Reason: Tachycardia Last Admin: 01/06/21 21:25 Dose: 5 mg Documented by: Pantoprazole Sodium (Pantoprazole 40 Mg Vial) 40 mg IVPUSH BEDTIME [facility] Last Admin: 01/06/21 20:26 Dose: 40 mg Documented by: Sodium Chloride (Sodium Chloride 0.9% 10 Ml Syringe) 10 ml FLUSH ASDIRECTED PRN PRN Reason: Keep Vein Open Last Admin: 01/01/21 23:57 Dose: 10 ml Documented by: Discontinued Medications Acetaminophen (Acetaminophen 325 Mg Tab) 650 mg PO Q6H PRN PRN Reason: Pain (Mild 1-3)/fever Albuterol/Ipratropium (Albuterol/Ipratropium 3.0-0.5 Mg/3 Ml Neb Soln) 3 ml NEB ONETIME ONE Stop: 01/01/21 23:15 Last Admin: 01/01/21 23:37 Dose: 3 ml Documented by: Atorvastatin Calcium (Atorvastatin 40 Mg Tab) 40 mg PO BEDTIME [facility] Last Admin: 01/05/21 20:01 Dose: Not Given Documented by: Bupropion HCl (Bupropion 150 Mg Tab.Er) 150 mg PO DAILY [facility] Last Admin: 01/06/21 08:18 Dose: Not Given Documented by: Cholecalciferol (Cholecalciferol (Vitamin D3) 25 Mcg Tab) 25 mcg PO DAILY [facility] Last Admin: 01/06/21 08:18 Dose: Not Given Documented by: Dexamethasone (Dexamethasone 4 Mg/Ml Sdv) 6 mg IVPUSH ONETIME ONE Stop: 01/01/21 23:14 Last Admin: 01/01/21 23:57 Dose: 6 mg Documented by: Docusate Sodium (Docusate Sodium 100 Mg Cap) 100 mg PO BID [facility] Last Admin: 01/06/21 08:17 Dose: Not Given Documented by: Heparin Sodium (Porcine) (Heparin Sodium 5,000 Units/Ml Vial) 5,000 units SUBCUT Q8H [facility] Last Admin: 01/02/21 15:17 Dose: 5,000 units Documented by: Sodium Chloride (Normal Saline) 1,000 mls @ 125 mls/hr IV ASDIRECTED [facility] Last Admin: 01/01/21 23:56 Dose: 125 mls/hr Documented by: Sodium Chloride (Normal Saline) 1,000 mls @ 1,000 mls/hr IV ONETIME ONE Stop: 01/02/21 01:02 Last Admin: 01/02/21 00:17 Dose: 1,000 mls/hr Documented by: Ceftriaxone Sodium 2 gm/ (Sodium Chloride) 100 mls @ 200 mls/hr IV ONETIME ONE Stop: 01/02/21 01:26 Last Admin: 01/02/21 01:17 Dose: 200 mls/hr Documented by: Sodium Chloride (Normal Saline) 1,000 mls @ 1,000 mls/hr IV ONETIME ONE Stop: 01/02/21 02:10 Last Admin: 01/02/21 01:18 Dose: 1,000 mls/hr Documented by: Lactated Ringer's (Ringers, Lactated) 1,000 mls @ 1,000 mls/hr IV .BOLUS ONE Stop: 01/02/21 02:10 Last Admin: 01/02/21 02:52 Dose: 1,000 mls/hr Documented by: Ceftriaxone Sodium 1 gm/ (Sodium Chloride) 100 mls @ 200 mls/hr IV Q24H [facility] Potassium Chloride/Sodium Chloride (Normal Saline With 20 Meq Kcl) 1,000 mls @ 75 mls/hr IV ASDIRECTED [facility] Last Admin: 01/02/21 15:20 Dose: 75 mls/hr Documented by: Piperacillin Sod/Tazobactam (Sod 4.5 gm/ Sodium Chloride) 100 mls @ 200 mls/hr IV ONETIME ONE Stop: 01/02/21 16:29 Last Admin: 01/02/21 15:26 Dose: 200 mls/hr Documented by: Piperacillin Sod/Tazobactam (Sod 4.5 gm/ Sodium Chloride) 100 mls @ 25 mls/hr IV Q8H [facility] Last Admin: 01/03/21 19:47 Dose: 25 mls/hr Documented by: Potassium Cl/Dextrose/Lact Ringer's (D5 Lr With 20 Meq Kcl) 1,000 mls @ 65 mls/hr IV ASDIRECTED [facility] Last Admin: 01/02/21 17:29 Dose: 65 mls/hr Documented by: Potassium Chloride 20 meq/ (Dextrose/Water) 1,010 mls @ 101 mls/hr IV ASDIRECTED [facility] Potassium Chloride 20 meq/ (Dextrose/Water) 1,010 mls @ 101 mls/hr IV Q10H [facility] Last Admin: 01/04/21 23:31 Dose: Not Given Documented by: Potassium Chloride 20 meq/ (Dextrose/Water) 1,010 mls @ 150 mls/hr IV Q6H [facility] Stop: 01/04/21 18:00 Last Admin: 01/04/21 20:30 Dose: Not Given Documented by: Multivitamins/Minerals 10 ml/Amino Ac/Electrol/Dextrose/Calcium 1,010 mls @ 40 mls/hr IV TITRATE [facility] Stop: 01/05/21 14:59 Last Infusion: 01/05/21 09:32 Dose: 0 mls/hr Documented by: Fat Emulsion Intravenous (Intralipid 20%) 500 mls @ 62.5 mls/hr IV MoWeFr [facility] Last Admin: 01/04/21 15:32 Dose: 62.5 mls/hr Documented by: Non-Formulary Medication (Nf Drug) 520 mls @ 55 mls/hr .XX ONETIME ONE Stop: 01/05/21 12:27 Last Admin: 01/05/21 03:53 Dose: Not Given Documented by: Potassium Chloride 20 meq/ (Dextrose/Water) 1,010 mls @ 100 mls/hr IV Q20H [facility] Stop: 01/05/21 12:00 Last Infusion: 01/05/21 09:33 Dose: 150 mls/hr Documented by: Potassium Chloride 10 meq/ (Premix) 100 mls @ 100 mls/hr IV Q1H [facility] Stop: 01/04/21 16:59 Last Admin: 01/04/21 16:32 Dose: 100 mls/hr Documented by: Potassium Chloride 10 meq/ (Premix) 100 mls @ 100 mls/hr IV Q1H [facility] Stop: 01/05/21 14:59 Last Admin: 01/05/21 15:29 Dose: 100 mls/hr Documented by: Dextrose/Water (Dextrose 5% In Water) 1,000 mls @ 100 mls/hr IV ASDIRECTED [facility] Dextrose/Water (Dextrose 5% In Water) 1,000 mls @ 150 mls/hr IV ASDIRECTED [facility] Last Infusion: 01/06/21 11:51 Dose: 0 mls/hr Documented by: Non-Formulary Medication (Nf Drug) 520 mls @ 0 mls/hr .XX ONETIME ONE Stop: 01/05/21 09:16 Last Admin: 01/05/21 09:35 Dose: Not Given Documented by: Potassium Chloride 20 meq/ (Dextrose/Water) 1,010 mls @ 175 mls/hr IV Q6H [facility] Last Infusion: 01/06/21 12:49 Dose: 100 mls/hr Documented by: Potassium Chloride 10 meq/ (Premix) 100 mls @ 100 mls/hr IV Q1H [facility] Stop: 01/06/21 12:59 Last Admin: 01/06/21 12:40 Dose: 100 mls/hr Documented by: Potassium Chloride 20 meq/ (Dextrose/Water) 1,010 mls @ 100 mls/hr IV Q10H [facility] Last Admin: 01/07/21 01:48 Dose: 100 mls/hr Documented by: Memantine (Memantine 10 Mg Tab) 10 mg PO BID [facility] Last Admin: 01/06/21 08:18 Dose: Not Given Documented by: Metoprolol Tartrate (Metoprolol Tartrate 5 Mg/5 Ml Sdv) 2.5 mg IVPUSH Q2H PRN PRN Reason: Tachycardia Last Admin: 01/03/21 08:25 Dose: 2.5 mg Documented by: Metoprolol Tartrate (Metoprolol Tartrate 5 Mg/5 Ml Sdv) 5 mg IVPUSH Q4H PRN PRN Reason: Tachycardia Last Admin: 01/05/21 18:00 Dose: 5 mg Documented by: Morphine Sulfate (Morphine 2 Mg/Ml Syringe) 2 mg IVPUSH Q4H PRN PRN Reason: Pain (severe 7-10) Stop: 01/03/21 14:24 Last Admin: 01/02/21 22:49 Dose: 2 mg Documented by: Pantoprazole Sodium (Pantoprazole 40 Mg Tab.Cr) 40 mg PO ACBREAKFAST GIFTY Last Admin: 01/05/21 05:31 Dose: Not Given Documented by: Risperidone (Risperidone 0.25 Mg Tab) 0.25 mg PO DAILY [facility] Risperidone (Risperidone 1 Mg Tab) 1 mg PO BEDTIME [facility] - Exam Quality Assessment: Supplemental Oxygen, Central Line/PICC, Urine Catheter Central Line Total Time: 2Days 18Hours Urinary Catheter Total Time: 4Days 12Hours General: Alert. No: Oriented, Cooperative HEENT: Pupils Equal, Pupils Reactive, EOMI Neck: Supple, Trachea Midline Lungs: Clear to Auscultation, Normal Respiratory Effort Cardiovascular: Regular Rate, Regular Rhythm GI/Abdominal Exam: Normal Bowel Sounds, Soft, Non-Tender, No Distention (Male) Exam: Deferred Back Exam: Normal Inspection, Full Range of Motion Extremities: Normal Inspection, No Pedal Edema Skin: Warm, Dry, Intact Neurological: No New Focal Deficit. No: Normal Gait, Normal Speech (Nonverbal), Normal Tone Psy/Mental Status: Alert - Patient Data Lab Results Last 24 hrs: Laboratory Results - last 24 hr 01/06/21 01/06/21 01/06/21 Range/Units 06:52 06:52 08:05 WBC 18.28 H (4.23-9.07) K/mm3 RBC 3.70 L (4.63-6.08) M/mm3 Hgb 12.0 L (13.7-17.5) gm/dl Hct 37.6 L (40.1-51.0) % MCV 101.6 H (79.0-92.2) fl MCH 32.4 H (25.7-32.2) pg MCHC 31.9 L (32.2-35.5) g/dl RDW Std Deviation 48.3 H (35.1-43.9) fL Plt Count 180 (163-337) K/mm3 MPV 12.8 H (9.4-12.3) fl Neut % (Auto) 89.6 H (34.0-67.9) % Lymph % (Auto) 4.3 L (21.8-53.1) % [place] % (Auto) 4.4 L (5.3-12.2) % Eos % (Auto) 1.1 (0.8-7.0) Baso % (Auto) 0.1 (0.1-1.2) % Neut # (Auto) 16.38 H (1.78-5.38) K/mm3 Lymph # (Auto) 0.79 L (1.32-3.57) K/mm3 [place] # (Auto) 0.80 (0.30-0.82) K/mm3 Eos # (Auto) 0.21 (0.04-0.54) K/mm3 Baso # (Auto) 0.01 (0.01-0.08) K/mm3 Manual Slide Review Normal smear Sodium 147 H (136-145) mEq/L Potassium 2.4 L* (3.5-5.1) mEq/L Chloride 108 H (98-107) mEq/L Carbon Dioxide 33 H (21-32) mEq/L Anion Gap 8.4 (5-15) BUN 30 H (7-18) mg/dL Creatinine 1.3 (0.7-1.3) mg/dL Est Cr Clr Drug Dosing 50.14 mL/min Estimated GFR (MDRD) 55 (>60) mL/min BUN/Creatinine Ratio 23.1 H (14-18) Glucose 150 H (70-99) mg/dL POC Glucose 125 H (70-99) mg/dL Calcium 7.8 L (8.5-10.1) mg/dL Total Bilirubin 0.9 (0.2-1.0) mg/dL AST 115 H (15-37) U/L ALT 98 H (16-63) U/L Alkaline Phosphatase 53 (46-116) U/L C-Reactive Protein 6.9 H* (<1.0) mg/dL Total Protein 5.5 L (6.4-8.2) g/dl Albumin 1.6 L (3.4-5.0) g/dl Globulin 3.9 gm/dL Albumin/Globulin Ratio 0.4 L (1-2) 01/06/21 01/06/21 01/07/21 Range/Units 15:10 20:38 03:46 WBC (4.23-9.07) K/mm3 RBC (4.63-6.08) M/mm3 Hgb (13.7-17.5) gm/dl Hct (40.1-51.0) % MCV (79.0-92.2) fl MCH (25.7-32.2) pg MCHC (32.2-35.5) g/dl RDW Std Deviation (35.1-43.9) fL Plt Count (163-337) K/mm3 MPV (9.4-12.3) fl Neut % (Auto) (34.0-67.9) % Lymph % (Auto) (21.8-53.1) % [place] % (Auto) (5.3-12.2) % Eos % (Auto) (0.8-7.0) Baso % (Auto) (0.1-1.2) % Neut # (Auto) (1.78-5.38) K/mm3 Lymph # (Auto) (1.32-3.57) K/mm3 [place] # (Auto) (0.30-0.82) K/mm3 Eos # (Auto) (0.04-0.54) K/mm3 Baso # (Auto) (0.01-0.08) K/mm3 Manual Slide Review Sodium (136-145) mEq/L Potassium (3.5-5.1) mEq/L Chloride (98-107) mEq/L Carbon Dioxide (21-32) mEq/L Anion Gap (5-15) BUN (7-18) mg/dL Creatinine (0.7-1.3) mg/dL Est Cr Clr Drug Dosing mL/min Estimated GFR (MDRD) (>60) mL/min BUN/Creatinine Ratio (14-18) Glucose (70-99) mg/dL POC Glucose 160 H 197 H 228 H (70-99) mg/dL Calcium (8.5-10.1) mg/dL Total Bilirubin (0.2-1.0) mg/dL AST (15-37) U/L ALT (16-63) U/L Alkaline Phosphatase (46-116) U/L C-Reactive Protein (<1.0) mg/dL Total Protein (6.4-8.2) g/dl Albumin (3.4-5.0) g/dl Globulin gm/dL Albumin/Globulin Ratio (1-2) 01/07/21 01/07/21 Range/Units 04:43 04:43 WBC 18.74 H (4.23-9.07) K/mm3 RBC 4.03 L (4.63-6.08) M/mm3 Hgb 13.1 L (13.7-17.5) gm/dl Hct 39.5 L (40.1-51.0) % MCV 98.0 H D (79.0-92.2) fl MCH 32.5 H (25.7-32.2) pg MCHC 33.2 (32.2-35.5) g/dl RDW Std Deviation 44.0 H (35.1-43.9) fL Plt Count 205 (163-337) K/mm3 MPV 12.7 H (9.4-12.3) fl Neut % (Auto) 87.8 H (34.0-67.9) % Lymph % (Auto) 3.8 L (21.8-53.1) % [place] % (Auto) 5.3 (5.3-12.2) % Eos % (Auto) 1.1 (0.8-7.0) Baso % (Auto) 0.2 (0.1-1.2) % Neut # (Auto) 16.45 H (1.78-5.38) K/mm3 Lymph # (Auto) 0.72 L (1.32-3.57) K/mm3 [place] # (Auto) 1.00 H (0.30-0.82) K/mm3 Eos # (Auto) 0.21 (0.04-0.54) K/mm3 Baso # (Auto) 0.03 (0.01-0.08) K/mm3 Manual Slide Review Abnormal smear Sodium 143 (136-145) mEq/L Potassium 2.7 L (3.5-5.1) mEq/L Chloride 103 (98-107) mEq/L Carbon Dioxide 32 (21-32) mEq/L Anion Gap 10.7 (5-15) BUN 20 H (7-18) mg/dL Creatinine 1.3 (0.7-1.3) mg/dL Est Cr Clr Drug Dosing 50.14 mL/min Estimated GFR (MDRD) 55 (>60) mL/min BUN/Creatinine Ratio 15.4 (14-18) Glucose 225 H (70-99) mg/dL POC Glucose (70-99) mg/dL Calcium 7.8 L (8.5-10.1) mg/dL Total Bilirubin 0.9 (0.2-1.0) mg/dL AST 101 H (15-37) U/L ALT 134 H (16-63) U/L Alkaline Phosphatase 68 (46-116) U/L C-Reactive Protein 8.2 H* (<1.0) mg/dL Total Protein 6.0 L (6.4-8.2) g/dl Albumin 1.7 L (3.4-5.0) g/dl Globulin 4.3 gm/dL Albumin/Globulin Ratio 0.4 L (1-2) Result Diagrams: 01/07/21 04:43 01/07/21 04:43 Raj Results Last 24 hrs: Microbiology 01/01/21 23:40 Blood Culture - Final Blood - Venous - Lab Draw 01/01/21 23:25 Blood Culture - Final Blood - Venous Sepsis Event Note - Evaluation Sepsis Screening Result: Sepsis Risk - Focused Exam Vital Signs: Vital Signs Temp Pulse Pulse Resp BP BP Pulse Ox 01/07/21 06:01 01/07/21 04:00 36.0 C L 107 H 33 H 111/66 94 L 01/07/21 03:00 22 H 92 L 01/07/21 02:00 23 H 92 L 01/07/21 01:00 21 H 92 L 01/07/21 00:01 24 H 93 L 01/07/21 00:00 37.1 C 110 H 23 H 123/70 123/70 93 L 01/06/21 23:59 19 93 L 01/06/21 23:00 23 H 92 L 01/06/21 22:00 22 H 92 L 01/06/21 21:34 01/06/21 21:25 116 H 125/79 01/06/21 21:22 26 H 125/79 94 L 01/06/21 21:21 26 H 92 L 01/06/21 21:00 25 H 93 L 01/06/21 20:54 37.5 C 118 H 01/06/21 20:51 25 H 90 L 01/06/21 20:01 24 H 92 L 01/06/21 20:00 24 H 119/80 92 L 01/06/21 19:59 27 H 92 L Pulse Ox 01/07/21 06:01 95 01/07/21 04:00 01/07/21 03:00 01/07/21 02:00 01/07/21 01:00 01/07/21 00:01 01/07/21 00:00 01/06/21 23:59 01/06/21 23:00 01/06/21 22:00 01/06/21 21:34 92 L 01/06/21 21:25 01/06/21 21:22 01/06/21 21:21 01/06/21 21:00 01/06/21 20:54 01/06/21 20:51 01/06/21 20:01 01/06/21 20:00 01/06/21 19:59 - Problem List & Annotations (1) Sepsis SNOMED Code(s): 15832047 Code(s): A41.9 - SEPSIS, UNSPECIFIED ORGANISM Status: Resolved Priority: High Current Visit: Yes Qualifiers: Sepsis type: sepsis due to unspecified organism Sepsis acute organ dysfunction status: unspecified Qualified Code(s): A41.9 - Sepsis, unspecified organism (2) Renal insufficiency SNOMED Code(s): 336575502, 743903635 Code(s): N28.9 - DISORDER OF KIDNEY AND URETER, UNSPECIFIED Status: Chronic Priority: High Current Visit: Yes (3) UTI (urinary tract infection) SNOMED Code(s): 27213640 Code(s): N39.0 - URINARY TRACT INFECTION, SITE NOT SPECIFIED Status: Acute Priority: High Current Visit: Yes Qualifiers: Urinary tract infection type: acute cystitis Hematuria presence: without hematuria Qualified Code(s): N30.00 - Acute cystitis without hematuria (4) Alzheimer's dementia without behavioral disturbance SNOMED Code(s): 38487607 Code(s): G30.9 - ALZHEIMER'S DISEASE, UNSPECIFIED; F02.80 - DEMENTIA IN OTH DISEASES CLASSD ELSWHR W/O BEHAVRL DISTURB Status: Chronic Current Visit: Yes Qualifiers: Alzheimer's disease onset: unspecified onset Qualified Code(s): G30.9 - Alzheimer's disease, unspecified; F02.80 - Dementia in other diseases classified elsewhere without behavioral disturbance (5) Hypernatremia SNOMED Code(s): 082051546 Code(s): E87.0 - HYPEROSMOLALITY AND HYPERNATREMIA Status: Acute Prio rity: High Current Visit: Yes (6) Hypokalemia SNOMED Code(s): 82744657 Code(s): E87.6 - HYPOKALEMIA Status: Acute Current Visit: Yes - Problem List Review Problem List Initiated/Reviewed/Updated: Yes - My Orders Last 24 Hours: My Active Orders 01/07/21 11:54 Potassium Chloride 20 meq Dextrose 5% in Water 1,000 ml IV Q10H - Assessment Assessment:: The patient is a 70-year-old gentleman who will be retained in ICU care secondary to his sepsis. The patient's TPN has been started as discussed with pharmacist. Repeat laboratory studies have been ordered. The patient's potassium has been replaced. He will continue on D5 and water to help improve his hypernatremia.The patient is currently anticoagulated with Lovenox at treatment dose to be continued. The patient's antihypertensive medications that have been oral have been on hold. The patient's blood pressure we monitored and his antihypertensives adjusted as necessary. Family members have not been around during rounds and more information will needed to be obtained regarding patient's mental status and he has resuscitation status. The patient's stay of hospitalization is uncertain at this time. The patient has been retained longer than 96 hours due to his sepsis and his hypernatremia requiring slow adjustment. 01/07/2021 The patient is a 70-year-old gentleman who is being retained in the ICU. The patient's TPN is to be continued along with replacement of his potassium. The patient also will have D5 and water to help supplement and keep his sodium normal. Out of concern for sepsis the patient will be maintained on Zosyn. Repeat laboratory studies have also been ordered. The patient is anticoagulated with Lovenox. The patient's vital signs will be monitored and his antihypertensive medications will be adjusted as necessary. The patient's overall prognosis is poor due to his rapid decline in mental status. The patient's functional status is also been in rapid decline. Would recommend a f amily conference to help define plan of care. - Plan Plan:: Patient is a 70-year-old male with a history of diabetes and Alzheimer's dementia who was brought to the ER from [facility] due to altered mental status. AMS Etiology unknown. Could be due to sepsis, metabolic events, hypernatremia, TIA/stroke CT of head - unable to complete Brunson catheter (sister agreed to have brunson) Alzheimer's dementia Continue home medication memantine Acute hypoxic and hypercapnic respiratory failure Patient had been on 2 L since the positive Covid 19 test 10 days ago. He increased in need of oxygen the day before admission ABG - ph 7.28, pCO2 71 on admission Bipap prn to keep PCO2 < 50 and SPO2 > 90% Etiology for CO2 retention unknown. CT of chest was ordered but is not able to do due to patient condition and BiPAP Troponin-mild elevation BNP 1064 Sepsis 2nd to UTI Tachycardia and tachypnea Continue IV fluid IV antibiotic Blood culture no growth Urine culture UTI Urinalysis compatible with UTI Zosyn 2.25 g every 6 hour Positive Covid 19 Had a positive COVID-19 test 10 days ago before admission received Regeneron I would not like to initiate remdesivir at this moment I would not like you to initiate a steroid at this moment since he has bacterial sepsis. His CRP is trending down to 9.5 today D-dimer elevated. continue Lovenox 80 mg twice daily Inhalers Chest x-ray-no acute change Chest CT was ordered Dehydration 3 L normal saline were given in the ER Continue IV fluid ASHLEY, creatinine 1.3 on 12/22/2020 Etiologies including prerenal cause, sepsis, ATN Creatinine 1.5 today Avoid nephrotoxic meds and contrast Repeat renal function in the morning disposition Elevation of D-dimer Could be due to COVID-19 infection or thromboembolic events Lovenox 80 mg twice daily Elevation of troponin 0.102-> 0.114-> 0.162 BNP 1064 Echocardiogram Discussed with sister Gaby (POA) who refused to transfer him to higher level hospital. Aspirin and Lipitor (but patient is not able to take the oral medications) Nutrition Sister Gaby would like to initiate the nutrition for him I feel that NG tube would increase the risk for aspiration. She agreed to have TPN PICC line was placed and TPN was initiated yesterday. Will discuss with sister Gaby PEG tube feeding Hypernatremia 156 today [id number] KCl 150ml/hr TPN is temporarily on hold today. I would like her to correct hypernatremia first. DVT prophylaxis: Lovenox CODE STATUS: DNR/DNI Discussed with Sister Gaby who initially would like to have CPR only but she called us back later she and her family would like to have DNR/DNI. Disposition: TBD
[2021-01-07] MEDS: Furosemide 20 MG/2 ML VIAL IVPUSH SCH (08:05)
[2021-01-07] MEDS: Enoxaparin 80 MG/0.8 ML Syringe SUBCUT SCH ×2 (08:05→20:43)
[2021-01-07] MEDS: Metoprolol Tartrate 5 MG/5 ML SDV IVPUSH PRN ×2 (09:38→20:44)
[2021-01-07] MEDS: Albuterol/Ipratropium 3.0-0.5 MG/3 ML Neb Soln NEB PRN ×2 (10:25→22:09)
[2021-01-07] MEDS ORDERED: Potassium Chloride 20 MEQ in Dextrose 5% in Water 1,000 ML IV SCH ×2 (11:54)
[2021-01-07] MEDS: Potassium Chloride 10 MEQ in Premix Bag 1 BAG IV SCH ×3 (12:29→14:48)
[2021-01-07] MEDS ORDERED: MVI, Adult with Vitamin K 10 ML in AA 5%/Calcium/D20W/Lytes 1,000 ML IV ONE ×2 (14:00)
[2021-01-07] MEDS: Pantoprazole 40 MG Vial IVPUSH SCH (20:44)
[2021-01-08] MEDS: Potassium Chloride 20 MEQ in Dextrose 5% in Water 1,000 ML IV SCH ×6 (00:28→13:29)
[2021-01-08] MEDS: Piperacillin/Tazobactam 4.5 GM in Sodium Chloride 0.9% 100 ML IV SCH ×3 (03:43→20:20)
[2021-01-08] MEDS: Insulin Lispro 100 UNIT/ML 10 ML Vial SUBCUT SCH ×4 (03:43→21:13)
--- NOTE | 2021-01-08 07:12 | PCM.PN ---
- General Info Date of Service: 01/08/21 Admission Dx/Problem (Free Text): Admission Diagnosis/Problem Admission Diagnosis/Problem Hypoxia Subjective Update: The patient is a 70-year-old gentleman who had been admitted to acute hospitalization in the intensive care unit on January 02, 2021 due to altered mental status and also post Covid concern for worsening of his baseline Alzheimer's disease. The patient is awake and a little more alert as he is able to say good morning although there is slurred speech. The patient has been able to maintain some better degree of eye contact today. He appears to be comfortable. He is still essentially nonverbal. Functional Status: Reports: Pain Controlled, Tolerating Diet - Review of Systems Systems Review Comment:: Not obtainable - Patient Data Vitals - Most Recent: Last Vital Signs Temp 36.7 C 01/08/21 04:00 Pulse 107 H 01/08/21 04:00 Resp 22 H 01/08/21 04:00 BP 136/89 01/08/21 04:00 Pulse Ox 93 L 01/08/21 04:00 Weight - Most Recent: 88.496 kg I&O - Last 24 Hours: Intake & Output 01/07/21 01/08/21 01/08/21 22:59 06:59 14:59 Intake Total 1060 1669 Output Total 645 875 Balance 415 794 Lab Results Last 24 Hours: Laboratory Results - last 24 hr 01/07/21 01/07/21 01/07/21 Range/Units 08:01 12:26 15:44 WBC (4.23-9.07) K/mm3 RBC (4.63-6.08) M/mm3 Hgb (13.7-17.5) gm/dl Hct (40.1-51.0) % MCV (79.0-92.2) fl MCH (25.7-32.2) pg MCHC (32.2-35.5) g/dl RDW Std Deviation (35.1-43.9) fL Plt Count (163-337) K/mm3 MPV (9.4-12.3) fl Neut % (Auto) (34.0-67.9) % Lymph % (Auto) (21.8-53.1) % [place] % (Auto) (5.3-12.2) % Eos % (Auto) (0.8-7.0) Baso % (Auto) (0.1-1.2) % Neut # (Auto) (1.78-5.38) K/mm3 Lymph # (Auto) (1.32-3.57) K/mm3 [place] # (Auto) (0.30-0.82) K/mm3 Eos # (Auto) (0.04-0.54) K/mm3 Baso # (Auto) (0.01-0.08) K/mm3 Sodium (136-145) mEq/L Potassium (3.5-5.1) mEq/L Chloride (98-107) mEq/L Carbon Dioxide (21-32) mEq/L Anion Gap (5-15) BUN (7-18) mg/dL Creatinine (0.7-1.3) mg/dL Est Cr Clr Drug Dosing mL/min Estimated GFR (MDRD) (>60) mL/min BUN/Creatinine Ratio (14-18) Glucose (70-99) mg/dL POC Glucose 204 H 228 H 229 H (70-99) mg/dL Calcium (8.5-10.1) mg/dL Total Bilirubin (0.2-1.0) mg/dL AST (15-37) U/L ALT (16-63) U/L Alkaline Phosphatase (46-116) U/L Total Protein (6.4-8.2) g/dl Albumin (3.4-5.0) g/dl Globulin gm/dL Albumin/Globulin Ratio (1-2) 01/07/21 01/08/21 01/08/21 Range/Units 20:26 03:34 05:10 WBC 17.01 H (4.23-9.07) K/mm3 RBC 3.80 L (4.63-6.08) M/mm3 Hgb 12.5 L (13.7-17.5) gm/dl Hct 37.5 L (40.1-51.0) % MCV 98.7 H (79.0-92.2) fl MCH 32.9 H (25.7-32.2) pg MCHC 33.3 (32.2-35.5) g/dl RDW Std Deviation 43.6 (35.1-43.9) fL Plt Count 216 (163-337) K/mm3 MPV 12.8 H (9.4-12.3) fl Neut % (Auto) 84.0 H (34.0-67.9) % Lymph % (Auto) 5.0 L (21.8-53.1) % [place] % (Auto) 6.1 (5.3-12.2) % Eos % (Auto) 1.5 (0.8-7.0) Baso % (Auto) 0.2 (0.1-1.2) % Neut # (Auto) 14.28 H (1.78-5.38) K/mm3 Lymph # (Auto) 0.85 L (1.32-3.57) K/mm3 [place] # (Auto) 1.04 H (0.30-0.82) K/mm3 Eos # (Auto) 0.26 (0.04-0.54) K/mm3 Baso # (Auto) 0.04 (0.01-0.08) K/mm3 Sodium (136-145) mEq/L Potassium (3.5-5.1) mEq/L Chloride (98-107) mEq/L Carbon Dioxide (21-32) mEq/L Anion Gap (5-15) BUN (7-18) mg/dL Creatinine (0.7-1.3) mg/dL Est Cr Clr Drug Dosing mL/min Estimated GFR (MDRD) (>60) mL/min BUN/Creatinine Ratio (14-18) Glucose (70-99) mg/dL POC Glucose 164 H 234 H (70-99) mg/dL Calcium (8.5-10.1) mg/dL Total Bilirubin (0.2-1.0) mg/dL AST (15-37) U/L ALT (16-63) U/L Alkaline Phosphatase (46-116) U/L Total Protein (6.4-8.2) g/dl Albumin (3.4-5.0) g/dl Globulin gm/dL Albumin/Globulin Ratio (1-2) 01/08/21 Range/Units 05:10 WBC (4.23-9.07) K/mm3 RBC (4.63-6.08) M/mm3 Hgb (13.7-17.5) gm/dl Hct (40.1-51.0) % MCV (79.0-92.2) fl MCH (25.7-32.2) pg MCHC (32.2-35.5) g/dl RDW Std Deviation (35.1-43.9) fL Plt Count (163-337) K/mm3 MPV (9.4-12.3) fl Neut % (Auto) (34.0-67.9) % Lymph % (Auto) (21.8-53.1) % [place] % (Auto) (5.3-12.2) % Eos % (Auto) (0.8-7.0) Baso % (Auto) (0.1-1.2) % Neut # (Auto) (1.78-5.38) K/mm3 Lymph # (Auto) (1.32-3.57) K/mm3 [place] # (Auto) (0.30-0.82) K/mm3 Eos # (Auto) (0.04-0.54) K/mm3 Baso # (Auto) (0.01-0.08) K/mm3 Sodium 139 (136-145) mEq/L Potassium 2.6 L (3.5-5.1) mEq/L Chloride 102 (98-107) mEq/L Carbon Dioxide 32 (21-32) mEq/L Anion Gap 7.6 (5-15) BUN 21 H (7-18) mg/dL Creatinine 1.2 (0.7-1.3) mg/dL Est Cr Clr Drug Dosing 54.32 mL/min Estimated GFR (MDRD) > 60 (>60) mL/min BUN/Creatinine Ratio 17.5 (14-18) Glucose 245 H (70-99) mg/dL POC Glucose (70-99) mg/dL Calcium 7.9 L (8.5-10.1) mg/dL Total Bilirubin 0.7 (0.2-1.0) mg/dL AST 91 H (15-37) U/L ALT 131 H (16-63) U/L Alkaline Phosphatase 67 (46-116) U/L Total Protein 5.7 L (6.4-8.2) g/dl Albumin 1.6 L (3.4-5.0) g/dl Globulin 4.1 gm/dL Albumin/Globulin Ratio 0.4 L (1-2) Med Orders - Current: Current Medications Albuterol/Ipratropium (Albuterol/Ipratropium 3.0-0.5 Mg/3 Ml Neb Soln) 3 ml NEB Q4H PRN PRN Reason: Shortness Of Breath/wheezing Last Admin: 01/07/21 22:09 Dose: 3 ml Documented by: Enoxaparin Sodium (Enoxaparin 80 Mg/0.8 Ml Syringe) 80 mg SUBCUT BID [facility] Last Admin: 01/07/21 20:43 Dose: 80 mg Documented by: Furosemide (Furosemide 20 Mg/2 Ml Vial) 20 mg IVPUSH DAILY [facility] Last Admin: 01/07/21 08:05 Dose: 20 mg Documented by: Hydralazine HCl (Hydralazine 20 Mg/Ml Sdv) 10 mg IVPUSH Q4H PRN PRN Reason: Hypertension Last Admin: 01/02/21 22:07 Dose: 10 mg Documented by: Promethazine HCl 12.5 mg/ (Sodium Chloride) 50.5 mls @ 100 mls/hr IV Q6H PRN PRN Reason: Nausea/Vomiting Piperacillin Sod/Tazobactam (Sod 4.5 gm/ Sodium Chloride) 100 mls @ 25 mls/hr IV Q8H [facility] Last Admin: 01/08/21 03:43 Dose: 25 mls/hr Documented by: Fat Emulsion Intravenous (Intralipid 20%) 500 mls @ 62.5 mls/hr IV MoWeFr [facility] Last Admin: 01/06/21 15:28 Dose: 62.5 mls/hr Documented by: Multivitamins/Minerals 10 ml/Amino Ac/Electrol/Dextrose/Calcium 1,010 mls @ 55 mls/hr IV ONETIME ONE Stop: 01/08/21 08:21 Last Admin: 01/07/21 13:54 Dose: 55 mls/hr Documented by: Potassium Chloride 20 meq/ (Dextrose/Water) 1,010 mls @ 85 mls/hr IV Q10H [facility] Last Admin: 01/08/21 00:28 Dose: 85 mls/hr Documented by: Insulin Human Lispro (Insulin Lispro 100 Unit/Ml 10 Ml Vial) 0 unit SUBCUT Q6H [facility]; Protocol Last Admin: 01/08/21 03:43 Dose: 4 units Documented by: Metoprolol Tartrate (Metoprolol Tartrate 5 Mg/5 Ml Sdv) 5 mg IVPUSH Q3H PRN PRN Reason: Tachycardia Last Admin: 01/07/21 20:44 Dose: 5 mg Documented by: Pantoprazole Sodium (Pantoprazole 40 Mg Vial) 40 mg IVPUSH BEDTIME [facility] Last Admin: 01/07/21 20:44 Dose: 40 mg Documented by: Sodium Chloride (Sodium Chloride 0.9% 10 Ml Syringe) 10 ml FLUSH ASDIRECTED PRN PRN Reason: Keep Vein Open Last Admin: 01/01/21 23:57 Dose: 10 ml Documented by: Discontinued Medications Acetaminophen (Acetaminophen 325 Mg Tab) 650 mg PO Q6H PRN PRN Reason: Pain (Mild 1-3)/fever Albuterol/Ipratropium (Albuterol/Ipratropium 3.0-0.5 Mg/3 Ml Neb Soln) 3 ml NEB ONETIME ONE Stop: 01/01/21 23:15 Last Admin: 01/01/21 23:37 Dose: 3 ml Documented by: Atorvastatin Calcium (Atorvastatin 40 Mg Tab) 40 mg PO BEDTIME [facility] Last Admin: 01/05/21 20:01 Dose: Not Given Documented by: Bupropion HCl (Bupropion 150 Mg Tab.Er) 150 mg PO DAILY [facility] Last Admin: 01/06/21 08:18 Dose: Not Given Documented by: Cholecalciferol (Cholecalciferol (Vitamin D3) 25 Mcg Tab) 25 mcg PO DAILY [facility] Last Admin: 01/06/21 08:18 Dose: Not Given Documented by: Dexamethasone (Dexamethasone 4 Mg/Ml Sdv) 6 mg IVPUSH ONETIME ONE Stop: 01/01/21 23:14 Last Admin: 01/01/21 23:57 Dose: 6 mg Documented by: Docusate Sodium (Docusate Sodium 100 Mg Cap) 100 mg PO BID [facility] Last Admin: 01/06/21 08:17 Dose: Not Given Documented by: Heparin Sodium (Porcine) (Heparin Sodium 5,000 Units/Ml Vial) 5,000 units SUBCUT Q8H [facility] Last Admin: 01/02/21 15:17 Dose: 5,000 units Documented by: Sodium Chloride (Normal Saline) 1,000 mls @ 125 mls/hr IV ASDIRECTED [facility] Last Admin: 01/01/21 23:56 Dose: 125 mls/hr Documented by: Sodium Chloride (Normal Saline) 1,000 mls @ 1,000 mls/hr IV ONETIME ONE Stop: 01/02/21 01:02 Last Admin: 01/02/21 00:17 Dose: 1,000 mls/hr Documented by: Ceftriaxone Sodium 2 gm/ (Sodium Chloride) 100 mls @ 200 mls/hr IV ONETIME ONE Stop: 01/02/21 01:26 Last Admin: 01/02/21 01:17 Dose: 200 mls/hr Documented by: Sodium Chloride (Normal Saline) 1,000 mls @ 1,000 mls/hr IV ONETIME ONE Stop: 01/02/21 02:10 Last Admin: 01/02/21 01:18 Dose: 1,000 mls/hr Documented by: Lactated Ringer's (Ringers, Lactated) 1,000 mls @ 1,000 mls/hr IV .BOLUS ONE Stop: 01/02/21 02:10 Last Admin: 01/02/21 02:52 Dose: 1,000 mls/hr Documented by: Ceftriaxone Sodium 1 gm/ (Sodium Chloride) 100 mls @ 200 mls/hr IV Q24H [facility] Potassium Chloride/Sodium Chloride (Normal Saline With 20 Meq Kcl) 1,000 mls @ 75 mls/hr IV ASDIRECTED [facility] Last Admin: 01/02/21 15:20 Dose: 75 mls/hr Documented by: Piperacillin Sod/Tazobactam (Sod 4.5 gm/ Sodium Chloride) 100 mls @ 200 mls/hr IV ONETIME ONE Stop: 01/02/21 16:29 Last Admin: 01/02/21 15:26 Dose: 200 mls/hr Documented by: Piperacillin Sod/Tazobactam (Sod 4.5 gm/ Sodium Chloride) 100 mls @ 25 mls/hr IV Q8H [facility] Last Admin: 01/03/21 19:47 Dose: 25 mls/hr Documented by: Potassium Cl/Dextrose/Lact Ringer's (D5 Lr With 20 Meq Kcl) 1,000 mls @ 65 mls/hr IV ASDIRECTED [facility] Last Admin: 01/02/21 17:29 Dose: 65 mls/hr Documented by: Potassium Chloride 20 meq/ (Dextrose/Water) 1,010 mls @ 101 mls/hr IV DIRECTED [facility] Potassium Chloride 20 meq/ (Dextrose/Water) 1,010 mls @ 101 mls/hr IV Q10H [facility] Last Admin: 01/04/21 23:31 Dose: Not Given Documented by: Potassium Chloride 20 meq/ (Dextrose/Water) 1,010 mls @ 150 mls/hr IV Q6H [facility] Stop: 01/04/21 18:00 Last Admin: 01/04/21 20:30 Dose: Not Given Documented by: Multivitamins/Minerals 10 ml/Amino Ac/Electrol/Dextrose/Calcium 1,010 mls @ 40 mls/hr IV TITRATE [facility] Stop: 01/05/21 14:59 Last Infusion: 01/05/21 09:32 Dose: 0 mls/hr Documented by: Fat Emulsion Intravenous (Intralipid 20%) 500 mls @ 62.5 mls/hr IV MoWeFr [facility] Last Admin: 01/04/21 15:32 Dose: 62.5 mls/hr Documented by: Non-Formulary Medication (Nf Drug) 520 mls @ 55 mls/hr .XX ONETIME ONE Stop: 01/05/21 12:27 Last Admin: 01/05/21 03:53 Dose: Not Given Documented by: Potassium Chloride 20 meq/ (Dextrose/Water) 1,010 mls @ 100 mls/hr IV Q20H [facility] Stop: 01/05/21 12:00 Last Infusion: 01/05/21 09:33 Dose: 150 mls/hr Documented by: Potassium Chloride 10 meq/ (Premix) 100 mls @ 100 mls/hr IV Q1H [facility] Stop: 01/04/21 16:59 Last Admin: 01/04/21 16:32 Dose: 100 mls/hr Documented by: Potassium Chloride 10 meq/ (Premix) 100 mls @ 100 mls/hr IV Q1H [facility] Stop: 01/05/21 14:59 Last Admin: 01/05/21 15:29 Dose: 100 mls/hr Documented by: Dextrose/Water (Dextrose 5% In Water) 1,000 mls @ 100 mls/hr IV ASDIRECTED [facility] Dextrose/Water (Dextrose 5% In Water) 1,000 mls @ 150 mls/hr IV ASDIRECTED [facility] Last Infusion: 01/06/21 11:51 Dose: 0 mls/hr Documented by: Non-Formulary Medication (Nf Drug) 520 mls @ 0 mls/hr .XX ONETIME ONE Stop: 01/05/21 09:16 Last Admin: 01/05/21 09:35 Dose: Not Given Documented by: Potassium Chloride 20 meq/ (Dextrose/Water) 1,010 mls @ 175 mls/hr IV Q6H [facility] Last Infusion: 01/06/21 12:49 Dose: 100 mls/hr Documented by: Multivitamins/Minerals 10 ml/Amino Ac/Electrol/Dextrose/Calcium 1,010 mls @ 40 mls/hr IV Q24H [facility] Stop: 01/07/21 11:59 Last Admin: 01/06/21 12:29 Dose: 40 mls/hr Documented by: Potassium Chloride 10 meq/ (Premix) 100 mls @ 100 mls/hr IV Q1H [facility] Stop: 01/06/21 12:59 Last Admin: 01/06/21 12:40 Dose: 100 mls/hr Documented by: Potassium Chloride 20 meq/ (Dextrose/Water) 1,010 mls @ 100 mls/hr IV Q10H [facility] Last Admin: 01/07/21 01:48 Dose: 100 mls/hr Documented by: Potassium Chloride 20 meq/ (Dextrose/Water) 1,010 mls @ 100 mls/hr IV Q10H [facility] Stop: 01/07/21 14:00 Last Admin: 01/07/21 12:33 Dose: Not Given Documented by: Potassium Chloride 10 meq/ (Premix) 100 mls @ 100 mls/hr IV Q1H [facility] Stop: 01/07/21 14:59 Last Admin: 01/07/21 14:48 Dose: 100 mls/hr Documented by: Memantine (Memantine 10 Mg Tab) 10 mg PO BID [facility] Last Admin: 01/06/21 08:18 Dose: Not Given Documented by: Metoprolol Tartrate (Metoprolol Tartrate 5 Mg/5 Ml Sdv) 2.5 mg IVPUSH Q2H PRN PRN Reason: Tachycardia Last Admin: 01/03/21 08:25 Dose: 2.5 mg Documented by: Metoprolol Tartrate (Metoprolol Tartrate 5 Mg/5 Ml Sdv) 5 mg IVPUSH Q4H PRN PRN Reason: Tachycardia Last Admin: 01/05/21 18:00 Dose: 5 mg Documented by: Morphine Sulfate (Morphine 2 Mg/Ml Syringe) 2 mg IVPUSH Q4H PRN PRN Reason: Pain (severe 7-10) Stop: 01/03/21 14:24 Last Admin: 01/02/21 22:49 Dose: 2 mg Documented by: Pantoprazole Sodium (Pantoprazole 40 Mg Tab.Cr) 40 mg PO ACBREAKFAST [facility] Last Admin: 01/05/21 05:31 Dose: Not Given Documented by: Risperidone (Risperidone 0.25 Mg Tab) 0.25 mg PO DAILY [facility] Risperidone (Risperidone 1 Mg Tab) 1 mg PO BEDTIME [facility] - Exam Quality Assessment: Supplemental Oxygen, Central Line/PICC, Urine Catheter, DVT Prophylaxis Central Line Total Time: 3Days 18Hours Urinary Catheter Total Time: 5Days 13Hours General: Alert, Cooperative (Minimally responsive to oral commands). No: Oriented HEENT: Pupils Equal, Pupils Reactive, EOMI, Mucous Membr. Moist/[place] Neck: Supple, Trachea Midline Lungs: Clear to Auscultation, Normal Respiratory Effort Cardiovascular: Regular Rate, Regular Rhythm GI/Abdominal Exam: Normal Bowel Sounds, Soft, Non-Tender, No Distention (Male) Exam: Deferred Back Exam: Normal Inspection, Full Range of Motion Extremities: Normal Inspection, No Pedal Edema Skin: Warm, Dry, Intact Neurological: No New Focal Deficit Psy/Mental Status: No: Alert (Awake, nonverbal) - Patient Data Lab Results Last 24 hrs: Laboratory Results - last 24 hr 01/07/21 01/07/21 01/07/21 Range/Units 08:01 12:26 15:44 WBC (4.23-9.07) K/mm3 RBC (4.63-6.08) M/mm3 Hgb (13.7-17.5) gm/dl Hct (40.1-51.0) % MCV (79.0-92.2) fl MCH (25.7-32.2) pg MCHC (32.2-35.5) g/dl RDW Std Deviation (35.1-43.9) fL Plt Count (163-337) K/mm3 MPV (9.4-12.3) fl Neut % (Auto) (34.0-67.9) % Lymph % (Auto) (21.8-53.1) % [place] % (Auto) (5.3-12.2) % Eos % (Auto) (0.8-7.0) Baso % (Auto) (0.1-1.2) % Neut # (Auto) (1.78-5.38) K/mm3 Lymph # (Auto) (1.32-3.57) K/mm3 [place] # (Auto) (0.30-0.82) K/mm3 Eos # (Auto) (0.04-0.54) K/mm3 Baso # (Auto) (0.01-0.08) K/mm3 Sodium (136-145) mEq/L Potassium (3.5-5.1) mEq/L Chloride (98-107) mEq/L Carbon Dioxide (21-32) mEq/L Anion Gap (5-15) BUN (7-18) mg/dL Creatinine (0.7-1.3) mg/dL Est Cr Clr Drug Dosing mL/min Estimated GFR (MDRD) (>60) mL/min BUN/Creatinine Ratio (14-18) Glucose (70-99) mg/dL POC Glucose 204 H 228 H 229 H (70-99) mg/dL Calcium (8.5-10.1) mg/dL Total Bilirubin (0.2-1.0) mg/dL AST (15-37) U/L ALT (16-63) U/L Alkaline Phosphatase (46-116) U/L Total Protein (6.4-8.2) g/dl Albumin (3.4-5.0) g/dl Globulin gm/dL Albumin/Globulin Ratio (1-2) 01/07/21 01/08/21 01/08/21 Range/Units 20:26 03:34 05:10 WBC 17.01 H (4.23-9.07) K/mm3 RBC 3.80 L (4.63-6.08) M/mm3 Hgb 12.5 L (13.7-17.5) gm/dl Hct 37.5 L (40.1-51.0) % MCV 98.7 H (79.0-92.2) fl MCH 32.9 H (25.7-32.2) pg MCHC 33.3 (32.2-35.5) g/dl RDW Std Deviation 43.6 (35.1-43.9) fL Plt Count 216 (163-337) K/mm3 MPV 12.8 H (9.4-12.3) fl Neut % (Auto) 84.0 H (34.0-67.9) % Lymph % (Auto) 5.0 L (21.8-53.1) % [place] % (Auto) 6.1 (5.3-12.2) % Eos % (Auto) 1.5 (0.8-7.0) Baso % (Auto) 0.2 (0.1-1.2) % Neut # (Auto) 14.28 H (1.78-5.38) K/mm3 Lymph # (Auto) 0.85 L (1.32-3.57) K/mm3 [place] # (Auto) 1.04 H (0.30-0.82) K/mm3 Eos # (Auto) 0.26 (0.04-0.54) K/mm3 Baso # (Auto) 0.04 (0.01-0.08) K/mm3 Sodium (136-145) mEq/L Potassium (3.5-5.1) mEq/L Chloride (98-107) mEq/L Carbon Dioxide (21-32) mEq/L Anion Gap (5-15) BUN (7-18) mg/dL Creatinine (0.7-1.3) mg/dL Est Cr Clr Drug Dosing mL/min Estimated GFR (MDRD) (>60) mL/min BUN/Creatinine Ratio (14-18) Glucose (70-99) mg/dL POC Glucose 164 H 234 H (70-99) mg/dL Calcium (8.5-10.1) mg/dL Total Bilirubin (0.2-1.0) mg/dL AST (15-37) U/L ALT (16-63) U/L Alkaline Phosphatase (46-116) U/L Total Protein (6.4-8.2) g/dl Albumin (3.4-5.0) g/dl Globulin gm/dL Albumin/Globulin Ratio (1-2) 01/08/21 Range/Units 05:10 WBC (4.23-9.07) K/mm3 RBC (4.63-6.08) M/mm3 Hgb (13.7-17.5) gm/dl Hct (40.1-51.0) % MCV (79.0-92.2) fl MCH (25.7-32.2) pg MCHC (32.2-35.5) g/dl RDW Std Deviation (35.1-43.9) fL Plt Count (163-337) K/mm3 MPV (9.4-12.3) fl Neut % (Auto) (34.0-67.9) % Lymph % (Auto) (21.8-53.1) % [place] % (Auto) (5.3-12.2) % Eos % (Auto) (0.8-7.0) Baso % (Auto) (0.1-1.2) % Neut # (Auto) (1.78-5.38) K/mm3 Lymph # (Auto) (1.32-3.57) K/mm3 [place] # (Auto) (0.30-0.82) K/mm3 Eos # (Auto) (0.04-0.54) K/mm3 Baso # (Auto) (0.01-0.08) K/mm3 Sodium 139 (136-145) mEq/L Potassium 2.6 L (3.5-5.1) mEq/L Chloride 102 (98-107) mEq/L Carbon Dioxide 32 (21-32) mEq/L Anion Gap 7.6 (5-15) BUN 21 H (7-18) mg/dL Creatinine 1.2 (0.7-1.3) mg/dL Est Cr Clr Drug Dosing 54.32 mL/min Estimated GFR (MDRD) > 60 (>60) mL/min BUN/Creatinine Ratio 17.5 (14-18) Glucose 245 H (70-99) mg/dL POC Glucose (70-99) mg/dL Calcium 7.9 L (8.5-10.1) mg/dL Total Bilirubin 0.7 (0.2-1.0) mg/dL AST 91 H (15-37) U/L ALT 131 H (16-63) U/L Alkaline Phosphatase 67 (46-116) U/L Total Protein 5.7 L (6.4-8.2) g/dl Albumin 1.6 L (3.4-5.0) g/dl Globulin 4.1 gm/dL Albumin/Globulin Ratio 0.4 L (1-2) Result Diagrams: 01/08/21 05:10 01/08/21 05:10 Sepsis Event Note - Evaluation Sepsis Screening Result: Sepsis Risk - Focused Exam Vital Signs: Vital Signs Temp Pulse Pulse Resp BP BP Pulse Ox 01/08/21 04:00 36.7 C 107 H 22 H 136/89 93 L 01/08/21 00:00 36.7 C 107 H 22 H 125/81 97 01/07/21 22:10 01/07/21 20:44 110 H 129/83 01/07/21 20:00 36.5 C 110 H 18 121/77 95 Pulse Ox 01/08/21 04:00 01/08/21 00:00 01/07/21 22:10 96 01/07/21 20:44 01/07/21 20:00 - Problem List & Annotations (1) Sepsis SNOMED Code(s): 48676501 Code(s): A41.9 - SEPSIS, UNSPECIFIED ORGANISM Status: Resolved Priority: High Current Visit: Yes Qualifiers: Sepsis type: sepsis due to unspecified organism Sepsis acute organ dysfunction status: unspecified Qualified Code(s): A41.9 - Sepsis, unspecified organism (2) Renal insufficiency SNOMED Code(s): 789730013, 801912209 Code(s): N28.9 - DISORDER OF KIDNEY AND URETER, UNSPECIFIED Status: Chronic Priority: High Current Visit: Yes (3) UTI (urinary tract infection) SNOMED Code(s): 31275327 Code(s): N39.0 - URINARY TRACT INFECTION, SITE NOT SPECIFIED Status: Acute Priority: High Current Visit: Yes Qualifiers: Urinary tract infection type: acute cystitis Hematuria presence: without hematuria Qualified Code(s): N30.00 - Acute cystitis without hematuria (4) Alzheimer's dementia without behavioral disturbance SNOMED Code(s): 31219570 Code(s): G30.9 - ALZHEIMER'S DISEASE, UNSPECIFIED; F02.80 - DEMENTIA IN OTH DISEASES CLASSD ELSWHR W/O BEHAVRL DISTURB Status: Chronic Current Visit: Yes Qualifiers: Alzheimer's disease onset: unspecified onset Qualified Code(s): G30.9 - Alzheimer's disease, unspecified; F02.80 - Dementia in other diseases classified elsewhere without behavioral disturbance (5) Hypernatremia SNOMED Code(s): 366894703 Code(s): E87.0 - HYPEROSMOLALITY AND HYPERNATREMIA Status: Acute Priority: High Current Visit: Yes (6) Hypokalemia SNOMED Code(s): 44580781 Code(s): E87.6 - HYPOKALEMIA Status: Acute Current Visit: Yes - Problem List Review Problem List Initiated/Reviewed/Updated: Yes - My Orders Last 24 Hours: My Active Orders 01/07/21 14:00 Potassium Chloride 20 meq Dextrose 5% in Water 1,000 ml IV Q10H 01/07/21 18:30 Renew/Continue Urinary Catheter [OM.PC] Routine 01/07/21 18:33 Renew/Continue Central Line Access [OM.PC] Routine 01/08/21 05:10 CBC WITH AUTO DIFF [HEME] AM - Assessment Assessment:: The patient is a 70-year-old gentleman who will be retained in ICU care secondary to his sepsis. The patient's TPN has been started as discussed with pharmacist. Repeat laboratory studies have been ordered. The patient's potassium has been replaced. He will continue on D5 and water to help improve his hypernatremia.The patient is currently anticoagulated with Lovenox at treatment dose to be continued. The patient's antihypertensive medications that have been oral have been on hold. The patient's blood pressure we monitored and his antihypertensives adjusted as necessary. Family members have not been around during rounds and more information will needed to be obtained regarding patient's mental status and he has resuscitation status. The patient's stay of hospitalization is uncertain at this time. The patient has been retained longer than 96 hours due to his sepsis and his hypernatremia requiring slow adjustment. 01/07/2021 The patient is a 70-year-old gentleman who is being retained in the ICU. The patient's TPN is to be continued along with replacement of his potassium. The patient also will have D5 and water to help supplement and keep his sodium normal. Out of concern for sepsis the patient will be maintained on Zosyn. Repeat laboratory studies have also been ordered. The patient is anticoagulated with Lovenox. The patient's vital signs will be monitored and his an tihypertensive medications will be adjusted as necessary. The patient's overall prognosis is poor due to his rapid decline in mental status. The patient's functional status is also been in rapid decline. Would recommend a family conference to help define plan of care. 01/08/2021 The patient is a 70-year-old gentleman who is being retained in the ICU. The patient is currently on TPN although this will be problematic in terms of its availability. Nurse at bedside reported that the patient had been able to swallow very thickened water without coughing or difficulties. I have ordered a swallow study by radiology to help confirm the degree of penetration that he m ay be experiencing. If not the patient will likely need to be on thickened liquids and/or a pured diet. The patient is on Zosyn this will be continued. Repeat laboratory studies have been ordered. The patient's overall prognosis is poor. Would recommend with social media editor to obtain meeting with family to discuss future plan of care. The patient is currently in a DO NOT INTUBATE/DO NOT RESUSCITATE category. - Plan Plan:: Patient is a 70-year-old male with a history of diabetes and Alzheimer's dementia who was brought to the ER from [facility] due to altered mental status. AMS Etiology unknown. Could be due to sepsis, metabolic events, hypernatremia, TIA/stroke CT of head - unable to complete Brunson catheter (sister agreed to have brunson) Alzheimer's dementia Continue home medication memantine Acute hypoxic and hypercapnic respiratory failure Patient had been on 2 L since the positive Covid 19 test 10 days ago. He increased in need of oxygen the day before admission ABG - ph 7.28, pCO2 71 on admission Bipap prn to keep PCO2 < 50 and SPO2 > 90% Etiology for CO2 retention unknown. CT of chest was ordered but is not able to do due to patient condition and BiPAP Troponin-mild elevation BNP 1064 Sepsis 2nd to UTI Tachycardia and tachypnea Continue IV fluid IV antibiotic Blood culture no growth Urine culture UTI Urinalysis compatible with UTI Zosyn 2.25 g every 6 hour Positive Covid 19 Had a positive COVID-19 test 10 days ago before admission received Regeneron I would not like to initiate remdesivir at this moment I would not like you to initiate a steroid at this moment since he has bacterial sepsis. His CRP is trending down to 9.5 today D-dimer elevated. continue Lovenox 80 mg twice daily Inhalers Chest x-ray-no acute change Chest CT was ordered Dehydration 3 L normal saline were given in the ER Continue IV fluid ASHLEY, creatinine 1.3 on 12/22/2020 Etiologies including prerenal cause, sepsis, ATN Creatinine 1.5 today Avoid nephrotoxic meds and contrast Repeat renal function in the morning disposition Elevation of D-dimer Could be due to COVID-19 infection or thromboembolic events Lovenox 80 mg twice daily Elevation of troponin 0.102-> 0.114-> 0.162 BNP 1064 Echocardiogram Discussed with sister Gaby (POA) who refused to transfer him to higher level hospital. Aspirin and Lipitor (but patient is not able to take the oral medications) Nutrition Sister Gaby would like to initiate the nutrition for him I feel that NG tube would increase the risk for aspiration. She agreed to have TPN PICC line was placed and TPN was initiated yesterday. Will discuss with sister Gaby PEG tube feeding Hypernatremia 156 today [id number] KCl 150ml/hr TPN is temporarily on hold today. I would like her to correct hypernatremia first. DVT prophylaxis: Lovenox CODE STATUS: DNR/DNI Discussed with Sister Gaby who initially would like to have CPR only but she called us back later she and her family would like to have DNR/DNI. Disposition: TBD
[2021-01-08] MEDS: Enoxaparin 80 MG/0.8 ML Syringe SUBCUT SCH ×2 (08:14→20:22)
[2021-01-08] MEDS: Furosemide 20 MG/2 ML VIAL IVPUSH SCH (08:15)
[2021-01-08] MEDS: Albuterol/Ipratropium 3.0-0.5 MG/3 ML Neb Soln NEB PRN (08:31)
[2021-01-08] MEDS ORDERED: MVI, Adult with Vitamin K 10 ML in AA 5%/Calcium/D20W/Lytes 1,000 ML IV ONE ×2 (08:45)
[2021-01-08] MEDS: Metoprolol Tartrate 5 MG/5 ML SDV IVPUSH PRN ×4 (09:10→22:43)
[2021-01-08] MEDS: Potassium Chloride 10 MEQ in Premix Bag 1 BAG IV SCH ×4 (10:13→13:29)
[2021-01-08] MEDS: Pantoprazole 40 MG Vial IVPUSH SCH (20:22)
[2021-01-08] MEDS ORDERED: AA 5%/Calcium/D20W/Lytes 1,000 ML IV ONE (23:30)
[2021-01-09] MEDS: Metoprolol Tartrate 5 MG/5 ML SDV IVPUSH PRN ×2 (03:33→07:55)
[2021-01-09] MEDS: Piperacillin/Tazobactam 4.5 GM in Sodium Chloride 0.9% 100 ML IV SCH ×3 (03:39→19:39)
[2021-01-09] MEDS: Insulin Lispro 100 UNIT/ML 10 ML Vial SUBCUT SCH (03:42)
[2021-01-09] MEDS: Potassium Chloride 20 MEQ in Dextrose 5% in Water 1,000 ML IV SCH ×6 (03:48→17:53)
--- NOTE | 2021-01-09 06:34 | PCM.PN ---
- General Info Date of Service: 01/09/21 Admission Dx/Problem (Free Text): Admission Diagnosis/Problem Admission Diagnosis/Problem Hypoxia, underlying Alzheimer's dementia, recent COVID-19 Subjective Update: The patient is a 70-year-old gentleman who has been admitted to ICU since January 02, 2021 as he had COVID-19 and significant worsening of his baseline Alzheimer's disease. The patient has been mentally improving somewhat. He has been able to eat and drink thickened liquids. The patient still remains nonverbal and will not follow commands. Family members are not available. Functional Status: Reports: Pain Controlled, Tolerating Diet - Review of Systems Systems Review Comment:: Review of systems not obtainable - Patient Data Vitals - Most Recent: Last Vital Signs Temp 36.4 C 01/09/21 04:00 Pulse 114 H 01/09/21 03:33 Resp 23 H 01/09/21 06:00 BP 106/79 01/09/21 04:00 Pulse Ox 91 L 01/09/21 06:00 Weight - Most Recent: 89.811 kg I&O - Last 24 Hours: Intake & Output 01/08/21 01/08/21 01/09/21 14:59 22:59 06:59 Intake Total 240 1680 1723 Output Total 1700 825 525 Balance -3208 542 5502 Lab Results Last 24 Hours: Laboratory Results - last 24 hr 01/08/21 01/08/21 01/08/21 Range/Units 05:10 05:10 08:13 WBC (4.23-9.07) K/mm3 RBC (4.63-6.08) M/mm3 Hgb (13.7-17.5) gm/dl Hct (40.1-51.0) % MCV (79.0-92.2) fl MCH (25.7-32.2) pg MCHC (32.2-35.5) g/dl RDW Std Deviation (35.1-43.9) fL Plt Count (163-337) K/mm3 MPV (9.4-12.3) fl Neut % (Auto) (34.0-67.9) % Lymph % (Auto) (21.8-53.1) % [place] % (Auto) (5.3-12.2) % Eos % (Auto) (0.8-7.0) Baso % (Auto) (0.1-1.2) % Neut # (Auto) (1.78-5.38) K/mm3 Lymph # (Auto) (1.32-3.57) K/mm3 [place] # (Auto) (0.30-0.82) K/mm3 Eos # (Auto) (0.04-0.54) K/mm3 Baso # (Auto) (0.01-0.08) K/mm3 Manual Slide Review Abnormal smear POC Glucose 234 H (70-99) mg/dL Magnesium 1.9 (1.8-2.4) mg/dL 01/08/21 01/08/21 01/09/21 Range/Units 14:49 20:31 03:31 WBC (4.23-9.07) K/mm3 RBC (4.63-6.08) M/mm3 Hgb (13.7-17.5) gm/dl Hct (40.1-51.0) % MCV (79.0-92.2) fl MCH (25.7-32.2) pg MCHC (32.2-35.5) g/dl RDW Std Deviation (35.1-43.9) fL Plt Count (163-337) K/mm3 MPV (9.4-12.3) fl Neut % (Auto) (34.0-67.9) % Lymph % (Auto) (21.8-53.1) % [place] % (Auto) (5.3-12.2) % Eos % (Auto) (0.8-7.0) Baso % (Auto) (0.1-1.2) % Neut # (Auto) (1.78-5.38) K/mm3 Lymph # (Auto) (1.32-3.57) K/mm3 [place] # (Auto) (0.30-0.82) K/mm3 Eos # (Auto) (0.04-0.54) K/mm3 Baso # (Auto) (0.01-0.08) K/mm3 Manual Slide Review POC Glucose 275 H 276 H 147 H (70-99) mg/dL Magnesium (1.8-2.4) mg/dL 01/09/21 Range/Units 05:29 WBC 20.45 H (4.23-9.07) K/mm3 RBC 3.88 L (4.63-6.08) M/mm3 Hgb 12.5 L (13.7-17.5) gm/dl Hct 38.2 L (40.1-51.0) % MCV 98.5 H (79.0-92.2) fl MCH 32.2 (25.7-32.2) pg MCHC 32.7 (32.2-35.5) g/dl RDW Std Deviation 44.1 H (35.1-43.9) fL Plt Count 291 D (163-337) K/mm3 MPV 12.4 H (9.4-12.3) fl Neut % (Auto) 80.6 H (34.0-67.9) % Lymph % (Auto) 6.8 L (21.8-53.1) % [place] % (Auto) 5.4 (5.3-12.2) % Eos % (Auto) 2.0 (0.8-7.0) Baso % (Auto) 0.3 (0.1-1.2) % Neut # (Auto) 16.48 H (1.78-5.38) K/mm3 Lymph # (Auto) 1.40 (1.32-3.57) K/mm3 [place] # (Auto) 1.10 H (0.30-0.82) K/mm3 Eos # (Auto) 0.40 (0.04-0.54) K/mm3 Baso # (Auto) 0.07 (0.01-0.08) K/mm3 Manual Slide Review POC Glucose (70-99) mg/dL Magnesium (1.8-2.4) mg/dL Med Orders - Current: Current Medications Albuterol/Ipratropium (Albuterol/Ipratropium 3.0-0.5 Mg/3 Ml Neb Soln) 3 ml NEB Q4H PRN PRN Reason: Shortness Of Breath/wheezing Last Admin: 01/08/21 08:31 Dose: 3 ml Documented by: Enoxaparin Sodium (Enoxaparin 80 Mg/0.8 Ml Syringe) 80 mg SUBCUT BID [facility] Last Admin: 01/08/21 20:22 Dose: 80 mg Documented by: Furosemide (Furosemide 20 Mg/2 Ml Vial) [address] [facility] Last Admin: 01/08/21 08:15 Dose: 20 mg Documented by: Hydralazine HCl (Hydralazine 20 Mg/Ml Sdv) 10 mg IVPUSH Q4H PRN PRN Reason: Hypertension Last Admin: 01/02/21 22:07 Dose: 10 mg Documented by: Promethazine HCl 12.5 mg/ (Sodium Chloride) 50.5 mls @ 100 mls/hr IV Q6H PRN PRN Reason: Nausea/Vomiting Piperacillin Sod/Tazobactam (Sod 4.5 gm/ Sodium Chloride) 100 mls @ 25 mls/hr IV Q8H [facility] Last Admin: 01/09/21 03:39 Dose: 25 mls/hr Documented by: Fat Emulsion Intravenous (Intralipid 20%) 500 mls @ 62.5 mls/hr IV MoWeFr [facility] Last Admin: 01/06/21 15:28 Dose: 62.5 mls/hr Documented by: Potassium Chloride 20 meq/ (Dextrose/Water) 1,010 mls @ 70 mls/hr IV Q10H [facility] Last Admin: 01/09/21 03:48 Dose: 70 mls/hr Documented by: Insulin Human Lispro (Insulin Lispro 100 Unit/Ml 10 Ml Vial) [address] [facility]; Protocol Last Admin: 01/09/21 03:42 Dose: Not Given Documented by: Metoprolol Tartrate (Metoprolol Tartrate 5 Mg/5 Ml Sdv) 5 mg IVPUSH Q3H PRN PRN Reason: Tachycardia Last Admin: 01/09/21 03:33 Dose: 5 mg Documented by: Pantoprazole Sodium (Pantoprazole 40 Mg Vial) [address] [facility] Last Admin: 01/08/21 20:22 Dose: 40 mg Documented by: Sodium Chloride (Sodium Chloride 0.9% 10 Ml Syringe) 10 ml FLUSH ASDIRECTED PRN PRN Reason: Keep Vein Open Last Admin: 01/01/21 23:57 Dose: 10 ml Documented by: Discontinued Medications Acetaminophen (Acetaminophen 325 Mg Tab) 650 mg PO Q6H PRN PRN Reason: Pain (Mild 1-3)/fever Albuterol/Ipratropium (Albuterol/Ipratropium 3.0-0.5 Mg/3 Ml Neb Soln) 3 ml NEB ONETIME ONE Stop: 01/01/21 23:15 Last Admin: 01/01/21 23:37 Dose: 3 ml Documented by: Atorvastatin Calcium (Atorvastatin 40 Mg Tab) [address] [facility] Last Admin: 01/05/21 20:01 Dose: Not Given Documented by: Bupropion HCl (Bupropion 150 Mg Tab.Er) [address] [facility] Last Admin: 01/06/21 08:18 Dose: Not Given Documented by: Cholecalciferol (Cholecalciferol (Vitamin D3) 25 Mcg Tab) [address] [facility] Last Admin: 01/06/21 08:18 Dose: Not Given Documented by: Dexamethasone (Dexamethasone 4 Mg/Ml Sdv) 6 mg IVPUSH ONETIME ONE Stop: 01/01/21 23:14 Last Admin: 01/01/21 23:57 Dose: 6 mg Documented by: Docusate Sodium (Docusate Sodium 100 Mg Cap) [address] [facility] Last Admin: 01/06/21 08:17 Dose: Not Given Documented by: Heparin Sodium (Porcine) (Heparin Sodium 5,000 Units/Ml Vial) 5,[address] [facility] Last Admin: 01/02/21 15:17 Dose: 5,000 units Documented by: Sodium Chloride (Normal Saline) 1,000 mls @ 125 mls/hr IV ASDIRECTED [facility] Last Admin: 01/01/21 23:56 Dose: 125 mls/hr Documented by: Sodium Chloride (Normal Saline) 1,000 mls @ 1,000 mls/hr IV ONETIME ONE Stop: 01/02/21 01:02 Last Admin: 01/02/21 00:17 Dose: 1,000 mls/hr Documented by: Ceftriaxone Sodium 2 gm/ (Sodium Chloride) 100 mls @ 200 mls/hr IV ONETIME ONE Stop: 01/02/21 01:26 Last Admin: 01/02/21 01:17 Dose: 200 mls/hr Documented by: Sodium Chloride (Normal Saline) 1,000 mls @ 1,000 mls/hr IV ONETIME ONE Stop: 01/02/21 02:10 Last Admin: 01/02/21 01:18 Dose: 1,000 mls/hr Documented by: Lactated Ringer's (Ringers, Lactated) 1,000 mls @ 1,000 mls/hr IV .BOLUS ONE Stop: 01/02/21 02:10 Last Admin: 01/02/21 02:52 Dose: 1,000 mls/hr Documented by: Ceftriaxone Sodium 1 gm/ (Sodium Chloride) 100 mls @ 200 mls/hr IV Q24H [facility] Potassium Chloride/Sodium Chloride (Normal Saline With 20 Meq Kcl) 1,000 mls @ 75 mls/hr IV ASDIRECTED [facility] Last Admin: 01/02/21 15:20 Dose: 75 mls/hr Documented by: Piperacillin Sod/Tazobactam (Sod 4.5 gm/ Sodium Chloride) 100 mls @ 200 mls/hr IV ONETIME ONE Stop: 01/02/21 16:29 Last Admin: 01/02/21 15:26 Dose: 200 mls/hr Documented by: Piperacillin Sod/Tazobactam (Sod 4.5 gm/ Sodium Chloride) 100 mls @ 25 mls/hr IV Q8H [facility] Last Admin: 01/03/21 19:47 Dose: 25 mls/hr Documented by: Potassium Cl/Dextrose/Lact Ringer's (D5 Lr With 20 Meq Kcl) 1,000 mls @ 65 mls/hr IV ASDIRECTED [facility] Last Admin: 01/02/21 17:29 Dose: 65 mls/hr Documented by: Potassium Chloride 20 meq/ (Dextrose/Water) 1,010 mls @ 101 mls/hr IV ASDIRECTE D [facility] Potassium Chloride 20 meq/ (Dextrose/Water) 1,010 mls @ 101 mls/hr IV Q10H [facility] Last Admin: 01/04/21 23:31 Dose: Not Given Documented by: Potassium Chloride 20 meq/ (Dextrose/Water) 1,010 mls @ 150 mls/hr IV Q6H [facility] Stop: 01/04/21 18:00 Last Admin: 01/04/21 20:30 Dose: Not Given Documented by: Multivitamins/Minerals 10 ml/Amino Ac/Electrol/Dextrose/Calcium 1,010 mls @ 40 mls/hr IV TITRATE [facility] Stop: 01/05/21 14:59 Last Infusion: 01/05/21 09:32 Dose: 0 mls/hr Documented by: Fat Emulsion Intravenous (Intralipid 20%) 500 mls @ 62.5 mls/hr IV MoWeFr [facility] Last Admin: 01/04/21 15:32 Dose: 62.5 mls/hr Documented by: Non-Formulary Medication (Nf Drug) 520 mls @ 55 mls/hr .XX ONETIME ONE Stop: 01/05/21 12:27 Last Admin: 01/05/21 03:53 Dose: Not Given Documented by: Potassium Chloride 20 meq/ (Dextrose/Water) 1,010 mls @ 100 mls/hr IV Q20H [facility] Stop: 01/05/21 12:00 Last Infusion: 01/05/21 09:33 Dose: 150 mls/hr Documented by: Potassium Chloride 10 meq/ (Premix) 100 mls @ 100 mls/hr IV Q1H [facility] Stop: 01/04/21 16:59 Last Admin: 01/04/21 16:32 Dose: 100 mls/hr Documented by: Potassium Chloride 10 meq/ (Premix) 100 mls @ 100 mls/hr IV Q1H [facility] Stop: 01/05/21 14:59 Last Admin: 01/05/21 15:29 Dose: 100 mls/hr Documented by: Dextrose/Water (Dextrose 5% In Water) 1,000 mls @ 100 mls/hr IV ASDIRECTED [facility] Dextrose/Water (Dextrose 5% In Water) 1,000 mls @ 150 mls/hr IV ASDIRECTED [facility] Last Infusion: 01/06/21 11:51 Dose: 0 mls/hr Documented by: Non-Formulary Medication (Nf Drug) 520 mls @ 0 mls/hr .XX ONETIME ONE Stop: 01/05/21 09:16 Last Admin: 01/05/21 09:35 Dose: Not Given Documented by: Potassium Chloride 20 meq/ (Dextrose/Water) 1,010 mls @ 175 mls/hr IV Q6H [facility] Last Infusion: 01/06/21 12:49 Dose: 100 mls/hr Documented by: Multivitamins/Minerals 10 ml/Amino Ac/Electrol/Dextrose/Calcium 1,010 mls @ 40 mls/hr IV Q24H [facility] Stop: 01/07/21 11:59 Last Admin: 01/06/21 12:29 Dose: 40 mls/hr Documented by: Potassium Chloride 10 meq/ (Premix) 100 mls @ 100 mls/hr IV Q1H [facility] Stop: 01/06/21 12:59 Last Admin: 01/06/21 12:40 Dose: 100 mls/hr Documented by: Potassium Chloride 20 meq/ (Dextrose/Water) 1,010 mls @ 100 mls/hr IV Q10H [facility] Last Admin: 01/07/21 01:48 Dose: 100 mls/hr Documented by: Potassium Chloride 20 meq/ (Dextrose/Water) 1,010 mls @ 100 mls/hr IV Q10H [facility] Stop: 01/07/21 14:00 Last Admin: 01/07/21 12:33 Dose: Not Given Documented by: Multivitamins/Minerals 10 ml/Amino Ac/Electrol/Dextrose/Calcium 1,010 mls @ 55 mls/hr IV ONETIME ONE Stop: 01/08/21 08:21 Last Admin: 01/07/21 13:54 Dose: 55 mls/hr Documented by: Potassium Chloride 20 meq/ (Dextrose/Water) 1,010 mls @ 85 mls/hr IV Q10H [facility] Stop: 01/08/21 13:00 Last Admin: 01/08/21 10:15 Dose: Not Given Documented by: Potassium Chloride 10 meq/ (Premix) 100 mls @ 100 mls/hr IV Q1H [facility] Stop: 01/07/21 14:59 Last Admin: 01/07/21 14:48 Dose: 100 mls/hr Documented by: Multivitamins/Minerals 10 ml/Amino Ac/Electrol/Dextrose/Calcium 1,010 mls @ 70 mls/hr IV ONETIME ONE Stop: 01/08/21 23:10 Last Admin: 01/08/21 09:18 Dose: 70 mls/hr Documented by: Potassium Chloride 10 meq/ (Premix) 100 mls @ 100 mls/hr IV Q1H [facility] Stop: 01/08/21 13:59 Last Admin: 01/08/21 13:29 Dose: 100 mls/hr Documented by: Amino Ac/Electrol/Dextrose/Calcium (Clinimix E 5/20) 1,000 mls @ 70 mls/hr IV ONETIME ONE Stop: 01/09/21 13:47 Memantine (Memantine 10 Mg Tab) [address] [facility] Last Admin: 01/06/21 08:18 Dose: Not Given Documented by: Metoprolol Tartrate (Metoprolol Tartrate 5 Mg/5 Ml Sdv) 2.5 mg IVPUSH Q2H PRN PRN Reason: Tachycardia Last Admin: 01/03/21 08:25 Dose: 2.5 mg Documented by: Metoprolol Tartrate (Metoprolol Tartrate 5 Mg/5 Ml Sdv) 5 mg IVPUSH Q4H PRN PRN Reason: Tachycardia Last Admin: 01/05/21 18:00 Dose: 5 mg Documented by: Morphine Sulfate (Morphine 2 Mg/Ml Syringe) 2 mg IVPUSH Q4H PRN PRN Reason: Pain (severe 7-10) Stop: 01/03/21 14:24 Last Admin: 01/02/21 22:49 Dose: 2 mg Documented by: Pantoprazole Sodium (Pantoprazole 40 Mg Tab.Cr) 40 mg PO ACBREAKFAST [facility] Last Admin: 01/05/21 05:31 Dose: Not Given Documented by: Risperidone (Risperidone 0.25 Mg Tab) 0.25 mg PO DAILY [facility] Risperidone (Risperidone 1 Mg Tab) 1 mg PO BEDTIME [facility] - Exam Quality Assessment: Supplemental Oxygen, Central Line/PICC, Urine Catheter, DVT Prophylaxis Central Line Total Time: 4Days 18Hours Urinary Catheter Total Time: 6Days 13Hours General: Alert, Cooperative. No: Oriented HEENT: Pupils Equal, Pupils Reactive, EOMI. No: Mucous Membr. Moist/[place] (Dry) Neck: Supple, Trachea Midline Lungs: Normal Respiratory Effort, Rales Cardiovascular: Regular Rate, Regular Rhythm GI/Abdominal Exam: Normal Bowel Sounds, Soft, Non-Tender, No Distention (Male) Exam: Deferred Back Exam: No: Normal Inspection (Patient unable to sit up for full examination), Full Range of Motion (Patient unable to set up for full examination) Extremities: No: Normal Inspection (Patient bedridden) Skin: Warm, Dry, Intact Neurological: No New Focal Deficit. No: Normal Speech, Normal Tone Psy/Mental Status: Alert (The patient is awake, nonverbal, not following commands) - Patient Data Lab Results Last 24 hrs: Laboratory Results - last 24 hr 01/08/21 01/08/21 01/08/21 Range/Units 05:10 05:10 08:13 WBC (4.23-9.07) K/mm3 RBC (4.63-6.08) M/mm3 Hgb (13.7-17.5) gm/dl Hct (40.1-51.0) % MCV (79.0-92.2) fl MCH (25.7-32.2) pg MCHC (32.2-35.5) g/dl RDW Std Deviation (35.1-43.9) fL Plt Count (163-337) K/mm3 MPV (9.4-12.3) fl Neut % (Auto) (34.0-67.9) % Lymph % (Auto) (21.8-53.1) % [place] % (Auto) (5.3-12.2) % Eos % (Auto) (0.8-7.0) Baso % (Auto) (0.1-1.2) % Neut # (Auto) (1.78-5.38) K/mm3 Lymph # (Auto) (1.32-3.57) K/mm3 [place] # (Auto) (0.30-0.82) K/mm3 Eos # (Auto) (0.04-0.54) K/mm3 Baso # (Auto) (0.01-0.08) K/mm3 Manual Slide Review Abnormal smear POC Glucose 234 H (70-99) mg/dL Magnesium 1.9 (1.8-2.4) mg/dL 01/08/21 01/08/21 01/09/21 Range/Units 14:49 20:31 03:31 WBC (4.23-9.07) K/mm3 RBC (4.63-6.08) M/mm3 Hgb (13.7-17.5) gm/dl Hct (40.1-51.0) % MCV (79.0-92.2) fl MCH (25.7-32.2) pg MCHC (32.2-35.5) g/dl RDW Std Deviation (35.1-43.9) fL Plt Count (163-337) K/mm3 MPV (9.4-12.3) fl Neut % (Auto) (34.0-67.9) % Lymph % (Auto) (21.8-53.1) % [place] % (Auto) (5.3-12.2) % Eos % (Auto) (0.8-7.0) Baso % (Auto) (0.1-1.2) % Neut # (Auto) (1.78-5.38) K/mm3 Lymph # (Auto) (1.32-3.57) K/mm3 [place] # (Auto) (0.30-0.82) K/mm3 Eos # (Auto) (0.04-0.54) K/mm3 Baso # (Auto) (0.01-0.08) K/mm3 Manual Slide Review POC Glucose 275 H 276 H 147 H (70-99) mg/dL Magnesium (1.8-2.4) mg/dL 01/09/21 Range/Units 05:29 WBC 20.45 H (4.23-9.07) K/mm3 RBC 3.88 L (4.63-6.08) M/mm3 Hgb 12.5 L (13.7-17.5) gm/dl Hct 38.2 L (40.1-51.0) % MCV 98.5 H (79.0-92.2) fl MCH 32.2 (25.7-32.2) pg MCHC 32.7 (32.2-35.5) g/dl RDW Std Deviation 44.1 H (35.1-43.9) fL Plt Count 291 D (163-337) K/mm3 MPV 12.4 H (9.4-12.3) fl Neut % (Auto) 80.6 H (34.0-67.9) % Lymph % (Auto) 6.8 L (21.8-53.1) % [place] % (Auto) 5.4 (5.3-12.2) % Eos % (Auto) 2.0 (0.8-7.0) Baso % (Auto) 0.3 (0.1-1.2) % Neut # (Auto) 16.48 H (1.78-5.38) K/mm3 Lymph # (Auto) 1.40 (1.32-3.57) K/mm3 [place] # (Auto) 1.10 H (0.30-0.82) K/mm3 Eos # (Auto) 0.40 (0.04-0.54) K/mm3 Baso # (Auto) 0.07 (0.01-0.08) K/mm3 Manual Slide Review POC Glucose (70-99) mg/dL Magnesium (1.8-2.4) mg/dL Result Diagrams: 01/09/21 05:29 01/09/21 05:29 Sepsis Event Note - Evaluation Sepsis Screening Result: Sepsis Risk - Focused Exam Vital Signs: Vital Signs Temp Pulse Resp BP BP Pulse Ox 01/09/21 06:00 23 H 91 L 01/09/21 04:01 24 H 93 L 01/09/21 04:00 36.4 C 21 H 106/79 93 L 01/09/21 03:33 114 H 110/77 01/09/21 03:00 19 91 L 01/09/21 02:00 15 93 L 01/09/21 01:00 25 H 93 L 01/09/21 00:00 36.3 C 18 115/75 94 L 01/08/21 22:43 128 H 119/88 01/08/21 22:00 25 H 93 L 01/08/21 21:00 17 96 01/08/21 20:00 36.2 C 22 H 122/92 H 94 L - Problem List & Annotations (1) Sepsis SNOMED Code(s): 31124133 Code(s): A41.9 - SEPSIS, UNSPECIFIED ORGANISM Status: Resolved Priority: High Current Visit: Yes Qualifiers: Sepsis type: sepsis due to unspecified organism Sepsis acute organ dysfunction status: unspecified Qualified Code(s): A41.9 - Sepsis, unspecified organism (2) Renal insufficiency SNOMED Code(s): 311321326, 676150425 Code(s): N28.9 - DISORDER OF KIDNEY AND URETER, UNSPECIFIED Status: Chronic Priority: High Current Visit: Yes (3) UTI (urinary tract infection) SNOMED Code(s): 03468541 Code(s): N39.0 - URINARY TRACT INFECTION, SITE NOT SPECIFIED Status: Acute Priority: High Current Visit: Yes Qualifiers: Urinary tract infection type: acute cystitis Hematuria presence: without hematuria Qualified Code(s): N30.00 - Acute cystitis without hematuria (4) Alzheimer's dementia without behavioral disturbance SNOMED Code(s): 69286513 Code(s): G30.9 - ALZHEIMER'S DISEASE, UNSPECIFIED; F02.80 - DEMENTIA IN OTH DISEASES CLASSD ELSWHR W/O BEHAVRL DISTURB Status: Chronic Current Visit: Yes Qualifiers: Alzheimer's disease onset: unspecified onset Qualified Code(s): G30.9 - Alzheimer's disease, unspecified; F02.80 - Dementia in other diseases classified elsewhere without behavioral disturbance (5) Hypernatremia SNOMED Code(s): 730766763 Code(s): E87.0 - HYPEROSMOLALITY AND HYPERNATREMIA Status: Acute Priori ty: High Current Visit: Yes (6) Hypokalemia SNOMED Code(s): 54485494 Code(s): E87.6 - HYPOKALEMIA Status: Acute Current Visit: Yes - Problem List Review Problem List Initiated/Reviewed/Updated: Yes - My Orders Last 24 Hours: My Active Orders 01/08/21 Lunch GI Soft Low Fiber [Soft Diet] [DIET] Thickened Liquids [DIET] 01/08/21 11:34 Dietary Supplements [RC] TIDMEALS 01/08/21 12:00 Potassium Chloride 20 meq Dextrose 5% in Water 1,000 ml IV Q10H 01/08/21 12:48 Renew/Continue Central Line Access [OM.PC] Routine 01/08/21 12:51 Renew/Continue Urinary Catheter [OM.PC] Routine 01/09/21 05:29 CBC WITH AUTO DIFF [HEME] AM COMPREHENSIVE METABOLIC PN,CMP [CHEM] AM MAGNESIUM [CHEM] AM - Assessment Assessment:: The patient is a 70-year-old gentleman who will be retained in ICU care secondary to his sepsis. The patient's TPN has been started as discussed with pharmacist. Repeat laboratory studies have been ordered. The patient's potassium has been replaced. He will continue on D5 and water to help improve his hypernatremia.The patient is currently anticoagulated with Lovenox at treatment dose to be continued. The patient's antihypertensive medications that have been oral have been on hold. The patient's blood pressure we monitored and his antihypertensives adjusted as necessary. Family members have not been around during rounds and more information will needed to be obtained regarding patient's mental status and he has resuscitation status. The patient's stay of hospitalization is uncertain at this time. The patient has been retained longer than 96 hours due to his sepsis and his hypernatremia requiring slow adjustment. 01/07/2021 The patient is a 70-year-old gentleman who is being retained in the ICU. The patient's TPN is to be continued along with replacement of his potassium. The patient also will have D5 and water to help supplement and keep his sodium normal. Out of concern for sepsis the patient will be maintained on Zosyn. Repeat laboratory studies have also been ordered. The patient is anticoagulated with Lovenox. The patient's vital signs will be monitored and his antihypertensive medications will be adjusted as necessary. The patient's overall prognosis is poor due to his rapid decline in mental status. The patient's functional status is also been in rapid decline. Would recommend a family conference to help define plan of care. 01/08/2021 The patient is a 70-year-old gentleman who is being retained in the ICU. The patient is currently on TPN although this will be problematic in terms of its availability. Nurse at bedside reported that the patient had been able to swallow very thickened water without coughing or difficulties. I have ordered a swallow study by radiology to help confirm the degree of penetration that he may be experiencing. If not the patient will likely need to be on thickened liquids and/or a pured diet. The patient is on Zosyn this will be continued. Repeat laboratory studies have been ordered. The patient's overall prognosis is poor. Would recommend with director of social services to obtain meeting with family to discuss future plan of care. The patient is currently in a DO NOT INTUBATE/DO NOT RESUSCITATE category. 01/09/2021 The patient is a 70-year-old gentleman who has underlying Alzheimer's dementia had been admitted secondary to worsening mental status after COVID-19. The patient today has had some improvement he is more alert today however, the patient is not verbal and he is not able to follow simple commands. The patient has been able to swallow thickened liquids and pured diet. The patient did not have any episodes of coughing. TPN is discontinued. The patient's central line has also been ordered to be discontinued. Due to over infection of COVID- 19 pneumonia the patient will be maintained on Zosyn. I have ordered repeat laboratory studies. I have also requested case management work with family in order to discuss future plan of care. We will downgrade the patient from ICU but maintain telemetry. The patient is in a DO NOT INTUBATE DO NOT RESUSCITATE category. - Plan Plan:: Patient is a 70-year-old male with a history of diabetes and Alzheimer's dementia who was brought to the ER from [facility] due to altered mental status. AMS Etiology unknown. Could be due to sepsis, metabolic events, hypernatremia, TIA/stroke CT of head - unable to complete Brunson catheter (sister agreed to have brunson) Alzheimer's dementia Continue home medication memantine Acute hypoxic and hypercapnic respiratory failure Patient had been on 2 L since the positive Covid 19 test 10 days ago. He increased in need of oxygen the day before admission ABG - ph 7.28, pCO2 71 on admission Bipap prn to keep PCO2 < 50 and SPO2 > 90% Etiology for CO2 retention unknown. CT of chest was ordered but is not able to do due to patient condition and BiPAP Troponin-mild elevation BNP 1064 Sepsis 2nd to UTI Tachycardia and tachypnea Continue IV fluid IV antibiotic Blood culture no growth Urine culture UTI Urinalysis compatible with UTI Zosyn 2.25 g every 6 hour Positive Covid 19 Had a positive COVID-19 test 10 days ago before admission received Regeneron I would not like to initiate remdesivir at this moment I would not like you to initiate a steroid at this moment since he has bacterial sepsis. His CRP is trending down to 9.5 today D-dimer elevated. continue Lovenox 80 mg twice daily Inhalers Chest x-ray-no acute change Chest CT was ordered Dehydration 3 L normal saline were given in the ER Continue IV fluid ASHLEY, creatinine 1.3 on 12/22/2020 Etiologies including prerenal cause, sepsis, ATN Creatinine 1.5 today Avoid nephrotoxic meds and contrast Repeat renal function in the morning disposition Elevation of D-dimer Could be due to COVID-19 infection or thromboembolic events Lovenox 80 mg twice daily Elevation of troponin 0.102-> 0.114-> 0.162 BNP 1064 Echocardiogram Discussed with sister Gaby (POA) who refused to transfer him to higher level hospital. Aspirin and Lipitor (but patient is not able to take the oral medications) Nutrition Sister Gaby would like to initiate the nutrition for him I feel that NG tube would increase the risk for aspiration. She agreed to have TPN PICC line was placed and TPN was initiated yesterday. Will discuss with sister Gaby PEG tube feeding Hypernatremia 156 today [id number] KCl 150ml/hr TPN is temporarily on hold today. I would like her to correct hypernatremia first. DVT prophylaxis: Lovenox CODE STATUS: DNR/DNI Discussed with Sister Gaby who initially would like to have CPR only but she called us back later she and her family would like to have DNR/DNI. Disposition: TBD
[2021-01-09] MEDS: Enoxaparin 80 MG/0.8 ML Syringe SUBCUT SCH ×2 (08:00→20:09)
[2021-01-09] MEDS: Furosemide 20 MG/2 ML VIAL IVPUSH SCH (08:02)
[2021-01-09] MEDS: Pantoprazole 40 MG Vial IVPUSH SCH (20:09)
[2021-01-10] MEDS: Piperacillin/Tazobactam 4.5 GM in Sodium Chloride 0.9% 100 ML IV SCH (03:44)
[2021-01-10] MEDS: Furosemide 20 MG/2 ML VIAL IVPUSH SCH (08:27)
[2021-01-10] MEDS: Enoxaparin 80 MG/0.8 ML Syringe SUBCUT SCH ×2 (08:27→20:35)
[2021-01-10] MEDS ORDERED: Potassium Chloride 20 MEQ in Dextrose 5% in Water 1,000 ML IV SCH ×2 (08:45)
--- NOTE | 2021-01-10 08:57 | PCM.PN ---
- General Info Date of Service: 01/10/21 Admission Dx/Problem (Free Text): Admission Diagnosis/Problem Admission Diagnosis/Problem Hypoxia, underlying Alzheimer's dementia, recent COVID-19 Subjective Update: The patient is a 70-year-old gentleman who has been admitted to ICU since January 02, 2021 as he had COVID-19 and significant worsening of his baseline Alzheimer's disease. Family members are not available. Marino did communicate at least by saying hi to me this morning. He appears to be more alert and he ate 75% of his breakfast showing better oral intake. He is back on his 2 L nasal cannula of O2 that is his baseline. He is continuing to get D5W with 20 KCl for maintenance fluids. Functional Status: Reports: Pain Controlled - Review of Systems General: Reports: Other (Noncommunicative) - Patient Data Vitals - Most Recent: Last Vital Signs Temp 98.4 F 01/10/21 08:30 Pulse 100 01/10/21 08:30 Resp 16 01/10/21 08:30 BP 104/73 01/10/21 08:30 Pulse Ox 95 01/10/21 08:30 Weight - Most Recent: 200 lb I&O - Last 24 Hours: Intake & Output 01/09/21 01/10/21 01/10/21 22:59 06:59 14:59 Intake Total 1056 948 Output Total 490 500 60 Balance 566 448 -60 Lab Results Last 24 Hours: Laboratory Results - last 24 hr 01/10/21 01/10/21 Range/Units 05:51 05:51 WBC 19.00 H (4.23-9.07) K/mm3 RBC 3.75 L (4.63-6.08) M/mm3 Hgb 12.3 L (13.7-17.5) gm/dl Hct 36.8 L (40.1-51.0) % MCV 98.1 H (79.0-92.2) fl MCH 32.8 H (25.7-32.2) pg MCHC 33.4 (32.2-35.5) g/dl RDW Std Deviation 43.8 (35.1-43.9) fL Plt Count 316 (163-337) K/mm3 MPV 11.9 (9.4-12.3) fl Neut % (Auto) 83.7 H (34.0-67.9) % Lymph % (Auto) 6.1 L (21.8-53.1) % Hopkins % (Auto) 4.4 L (5.3-12.2) % Eos % (Auto) 1.4 (0.8-7.0) Baso % (Auto) 0.2 (0.1-1.2) % Neut # (Auto) 15.93 H (1.78-5.38) K/mm3 Lymph # (Auto) 1.15 L (1.32-3.57) K/mm3 Hopkins # (Auto) 0.83 H (0.30-0.82) K/mm3 Eos # (Auto) 0.26 (0.04-0.54) K/mm3 Baso # (Auto) 0.04 (0.01-0.08) K/mm3 Manual Slide Review Normal smear Sodium 139 (136-145) mEq/L Potassium 2.8 L (3.5-5.1) mEq/L Chloride 103 (98-107) mEq/L Carbon Dioxide 27 (21-32) mEq/L Anion Gap 11.8 (5-15) BUN 26 H (7-18) mg/dL Creatinine 1.3 (0.7-1.3) mg/dL Est Cr Clr Drug Dosing 50.14 mL/min Estimated GFR (MDRD) 55 (>60) mL/min BUN/Creatinine Ratio 20.0 H (14-18) Glucose 119 H (70-99) mg/dL Calcium 8.1 L (8.5-10.1) mg/dL Magnesium 1.9 (1.8-2.4) mg/dL Total Bilirubin 0.5 (0.2-1.0) mg/dL AST 62 H (15-37) U/L ALT 136 H (16-63) U/L Alkaline Phosphatase 87 (46-116) U/L Total Protein 6.1 L (6.4-8.2) g/dl Albumin 1.8 L (3.4-5.0) g/dl Globulin 4.3 gm/dL Albumin/Globulin Ratio 0.4 L (1-2) Med Orders - Current: Current Medications Albuterol/Ipratropium (Albuterol/Ipratropium 3.0-0.5 Mg/3 Ml Neb Soln) 3 ml NEB Q4H PRN PRN Reason: Shortness Of Breath/wheezing Last Admin: 01/08/21 08:31 Dose: 3 ml Documented by: Enoxaparin Sodium (Enoxaparin 80 Mg/0.8 Ml Syringe) 80 mg SUBCUT BID [facility] Last Admin: 01/10/21 08:27 Dose: 80 mg Documented by: Furosemide (Furosemide 20 Mg/2 Ml Vial) 20 mg IVPUSH DAILY [facility] Last Admin: 01/10/21 08:27 Dose: 20 mg Documented by: Hydralazine HCl (Hydralazine 20 Mg/Ml Sdv) 10 mg IVPUSH Q4H PRN PRN Reason: Hypertension Last Admin: 01/02/21 22:07 Dose: 10 mg Documented by: Promethazine HCl 12.5 mg/ (Sodium Chloride) 50.5 mls @ 100 mls/hr IV Q6H PRN PRN Reason: Nausea/Vomiting Piperacillin Sod/Tazobactam (Sod 4.5 gm/ Sodium Chloride) 100 mls @ 25 mls/hr IV Q8H [facility] Last Admin: 01/10/21 03:44 Dose: 25 mls/hr Documented by: Potassium Chloride 20 meq/ (Dextrose/Water) 1,010 mls @ 70 mls/hr IV Q14H [facility] Potassium Chloride 10 meq/ (Premix) 100 mls @ 100 mls/hr IV Q1H [facility] Stop: 01/10/21 12:59 Metoprolol Tartrate (Metoprolol Tartrate 5 Mg/5 Ml Sdv) 5 mg IVPUSH Q3H PRN PRN Reason: Tachycardia Last Admin: 01/09/21 07:55 Dose: 5 mg Documented by: Pantoprazole Sodium (Pantoprazole 40 Mg Vial) 40 mg IVPUSH BEDTIME [facility] Last Admin: 01/09/21 20:09 Dose: 40 mg Documented by: Sodium Chloride (Sodium Chloride 0.9% 10 Ml Syringe) 10 ml FLUSH ASDIRECTED PRN PRN Reason: Keep Vein Open Last Admin: 01/01/21 23:57 Dose: 10 ml Documented by: Discontinued Medications Acetaminophen (Acetaminophen 325 Mg Tab) 650 mg PO Q6H PRN PRN Reason: Pain (Mild 1-3)/fever Albuterol/Ipratropium (Albuterol/Ipratropium 3.0-0.5 Mg/3 Ml Neb Soln) 3 ml NEB ONETIME ONE Stop: 01/01/21 23:15 Last Admin: 01/01/21 23:37 Dose: 3 ml Documented by: Atorvastatin Calcium (Atorvastatin 40 Mg Tab) 40 mg PO BEDTIME [facility] Last Admin: 01/05/21 20:01 Dose: Not Given Documented by: Bupropion HCl (Bupropion 150 Mg Tab.Er) 150 mg PO DAILY [facility] Last Admin: 01/06/21 08:18 Dose: Not Given Documented by: Cholecalciferol (Cholecalciferol (Vitamin D3) 25 Mcg Tab) 25 mcg PO DAILY [facility] Last Admin: 01/06/21 08:18 Dose: Not Given Documented by: Dexamethasone (Dexamethasone 4 Mg/Ml Sdv) 6 mg IVPUSH ONETIME ONE Stop: 01/01/21 23:14 Last Admin: 01/01/21 23:57 Dose: 6 mg Documented by: Docusate Sodium (Docusate Sodium 100 Mg Cap) 100 mg PO BID [facility] Last Admin: 01/06/21 08:17 Dose: Not Given Documented by: Heparin Sodium (Porcine) (Heparin Sodium 5,000 Units/Ml Vial) 5,000 units SUBCUT Q8H [facility] Last Admin: 01/02/21 15:17 Dose: 5,000 units Documented by: Sodium Chloride (Normal Saline) 1,000 mls @ 125 mls/hr IV ASDIRECTED [facility] Last Admin: 01/01/21 23:56 Dose: 125 mls/hr Documented by: Sodium Chloride (Normal Saline) 1,000 mls @ 1,000 mls/hr IV ONETIME ONE Stop: 01/02/21 01:02 Last Admin: 01/02/21 00:17 Dose: 1,000 mls/hr Documented by: Ceftriaxone Sodium 2 gm/ (Sodium Chloride) 100 mls @ 200 mls/hr IV ONETIME ONE Stop: 01/02/21 01:26 Last Admin: 01/02/21 01:17 Dose: 200 mls/hr Documented by: Sodium Chloride (Normal Saline) 1,000 mls @ 1,000 mls/hr IV ONETIME ONE Stop: 01/02/21 02:10 Last Admin: 01/02/21 01:18 Dose: 1,000 mls/hr Documented by: Lactated Ringer's (Ringers, Lactated) 1,000 mls @ 1,000 mls/hr IV .BOLUS ONE Stop: 01/02/21 02:10 Last Admin: 01/02/21 02:52 Dose: 1,000 mls/hr Documented by: Ceftriaxone Sodium 1 gm/ (Sodium Chloride) 100 mls @ 200 mls/hr IV Q24H [facility] Potassium Chloride/Sodium Chloride (Normal Saline With 20 Meq Kcl) 1,000 mls @ 75 mls/hr IV ASDIRECTED [facility] Last Admin: 01/02/21 15:20 Dose: 75 mls/hr Documented by: Piperacillin Sod/Tazobactam (Sod 4.5 gm/ Sodium Chloride) 100 mls @ 200 mls/hr IV ONETIME ONE Stop: 01/02/21 16:29 Last Admin: 01/02/21 15:26 Dose: 200 mls/hr Documented by: Piperacillin Sod/Tazobactam (Sod 4.5 gm/ Sodium Chloride) 100 mls @ 25 mls/hr IV Q8H [facility] Last Admin: 01/03/21 19:47 Dose: 25 mls/hr Documented by: Potassium Cl/Dextrose/Lact Ringer's (D5 Lr With 20 Meq Kcl) 1,000 mls @ 65 mls/hr IV ASDIRECTED [facility] Last Admin: 01/02/21 17:29 Dose: 65 mls/hr Documented by: Potassium Chloride 20 meq/ (Dextrose/Water) 1,010 mls @ 101 mls/hr IV ASDIRECTED [facility] Potassium Chloride 20 meq/ (Dextrose/Water) 1,010 mls @ 101 mls/hr IV Q10H [facility] Last Admin: 01/04/21 23:31 Dose: Not Given Documented by: Potassium Chloride 20 meq/ (Dextrose/Water) 1,010 mls @ 150 mls/hr IV Q6H [facility] Stop: 01/04/21 18:00 Last Admin: 01/04/21 20:30 Dose: Not Given Documented by: Multivitamins/Minerals 10 ml/Amino Ac/Electrol/Dextrose/Calcium 1,010 mls @ 40 mls/hr IV TITRATE [facility] Stop: 01/05/21 14:59 Last Infusion: 01/05/21 09:32 Dose: 0 mls/hr Documented by: Fat Emulsion Intravenous (Intralipid 20%) 500 mls @ 62.5 mls/hr IV MoWeFr [facility] Last Admin: 01/04/21 15:32 Dose: 62.5 mls/hr Documented by: Non-Formulary Medication (Nf Drug) 520 mls @ 55 mls/hr .XX ONETIME ONE Stop: 01/05/21 12:27 Last Admin: 01/05/21 03:53 Dose: Not Given Documented by: Potassium Chloride 20 meq/ (Dextrose/Water) 1,010 mls @ 100 mls/hr IV Q20H [facility] Stop: 01/05/21 12:00 Last Infusion: 01/05/21 09:33 Dose: 150 mls/hr Documented by: Potassium Chloride 10 meq/ (Premix) 100 mls @ 100 mls/hr IV Q1H [facility] Stop: 01/04/21 16:59 Last Admin: 01/04/21 16:32 Dose: 100 mls/hr Documented by: Potassium Chloride 10 meq/ (Premix) 100 mls @ 100 mls/hr IV Q1H [facility] Stop: 01/05/21 14:59 Last Admin: 01/05/21 15:29 Dose: 100 mls/hr Documented by: Dextrose/Water (Dextrose 5% In Water) 1,000 mls @ 100 mls/hr IV ASDIRECTED [facility] Dextrose/Water (Dextrose 5% In Water) 1,000 mls @ 150 mls/hr IV ASDIRECTED [facility] Last Infusion: 01/06/21 11:51 Dose: 0 mls/hr Documented by: Non-Formulary Medication (Nf Drug) 520 mls @ 0 mls/hr .XX ONETIME ONE Stop: 01/05/21 09:16 Last Admin: 01/05/21 09:35 Dose: Not Given Documented by: Potassium Chloride 20 meq/ (Dextrose/Water) 1,010 mls @ 175 mls/hr IV Q6H [facility] Last Infusion: 01/06/21 12:49 Dose: 100 mls/hr Documented by: Fat Emulsion Intravenous (Intralipid 20%) 500 mls @ 62.5 mls/hr IV MoWeFr [facility] Last Admin: 01/06/21 15:28 Dose: 62.5 mls/hr Documented by: Multivitamins/Minerals 10 ml/Amino Ac/Electrol/Dextrose/Calcium 1,010 mls @ 40 mls/hr IV Q24H [facility] Stop: 01/07/21 11:59 Last Admin: 01/06/21 12:29 Dose: 40 mls/hr Documented by: Potassium Chloride 10 meq/ (Premix) 100 mls @ 100 mls/hr IV Q1H [facility] Stop: 01/06/21 12:59 Last Admin: 01/06/21 12:40 Dose: 100 mls/hr Documented by: Potassium Chloride 20 meq/ (Dextrose/Water) 1,010 mls @ 100 mls/hr IV Q10H [facility] Last Admin: 01/07/21 01:48 Dose: 100 mls/hr Documented by: Potassium Chloride 20 meq/ (Dextrose/Water) 1,010 mls @ 100 mls/hr IV Q10H [facility] Stop: 01/07/21 14:00 Last Admin: 01/07/21 12:33 Dose: Not Given Documented by: Multivitamins/Minerals 10 ml/Amino Ac/Electrol/Dextrose/Calcium 1,010 mls @ 55 mls/hr IV ONETIME ONE Stop: 01/08/21 08:21 Last Admin: 01/07/21 13:54 Dose: 55 mls/hr Documented by: Potassium Chloride 20 meq/ (Dextrose/Water) 1,010 mls @ 85 mls/hr IV Q10H [facility] Stop: 01/08/21 13:00 Last Admin: 01/08/21 10:15 Dose: Not Given Documented by: Potassium Chloride 10 meq/ (Premix) 100 mls @ 100 mls/hr IV Q1H [facility] Stop: 01/07/21 14:59 Last Admin: 01/07/21 14:48 Dose: 100 mls/hr Documented by: Multivitamins/Minerals 10 ml/Amino Ac/Electrol/Dextrose/Calcium 1,010 mls @ 70 mls/hr IV ONETIME ONE Stop: 01/08/21 23:10 Last Admin: 01/08/21 09:18 Dose: 70 mls/hr Documented by: Potassium Chloride 10 meq/ (Premix) 100 mls @ 100 mls/hr IV Q1H [facility] Stop: 01/08/21 13:59 Last Admin: 01/08/21 13:29 Dose: 100 mls/hr Documented by: Potassium Chloride 20 meq/ (Dextrose/Water) 1,010 mls @ 70 mls/hr IV Q10H [facility] Last Admin: 01/09/21 08:07 Dose: Not Given Documented by: Amino Ac/Electrol/Dextrose/Calcium (Clinimix E /) 1,000 mls @ 70 mls/hr IV ONETIME ONE Stop: 01/09/21 13:47 Potassium Chloride 20 meq/ (Dextrose/Water) 1,010 mls @ 70 mls/hr IV Q14H [facility] Last Admin: 01/09/21 17:53 Dose: 70 mls/hr Documented by: Insulin Human Lispro (Insulin Lispro 100 Unit/Ml 10 Ml Vial) 0 unit SUBCUT Q6H [facility]; Protocol Last Admin: 01/09/21 03:42 Dose: Not Given Documented by: Memantine (Memantine 10 Mg Tab) 10 mg PO BID [facility] Last Admin: 01/06/21 08:18 Dose: Not Given Documented by: Metoprolol Tartrate (Metoprolol Tartrate 5 Mg/5 Ml Sdv) 2.5 mg IVPUSH Q2H PRN PRN Reason: Tachycardia Last Admin: 01/03/21 08:25 Dose: 2.5 mg Documented by: Metoprolol Tartrate (Metoprolol Tartrate 5 Mg/5 Ml Sdv) 5 mg IVPUSH Q4H PRN PRN Reason: Tachycardia Last Admin: 01/05/21 18:00 Dose: 5 mg Documented by: Morphine Sulfate (Morphine 2 Mg/Ml Syringe) 2 mg IVPUSH Q4H PRN PRN Reason: Pain (severe 7-10) Stop: 01/03/21 14:24 Last Admin: 01/02/21 22:49 Dose: 2 mg Documented by: Pantoprazole Sodium (Pantoprazole 40 Mg Tab.Cr) 40 mg PO ACBREAKFAST [facility] Last Admin: 01/05/21 05:31 Dose: Not Given Documented by: Risperidone (Risperidone 0.25 Mg Tab) 0.25 mg PO DAILY [facility] Risperidone (Risperidone 1 Mg Tab) 1 mg PO BEDTIME [facility] - Exam Quality Assessment: Supplemental Oxygen (Nasal cannula) Central Line Total Time: 5Days 0Hours Urinary Catheter Total Time: 7Days 17Hours General: Alert HEENT: Pupils Equal, Mucous Membr. Moist/[place] Neck: Supple Lungs: Other (Upper airway sounds throughout chest). No: Normal Respiratory Effort (Increased respiratory rate without increase in effort) Cardiovascular: Regular Rhythm, Tachycardia GI/Abdominal Exam: Normal Bowel Sounds, Soft, Non-Tender, No Distention Extremities: Normal Inspection, Normal Range of Motion, Non-Tender, No Pedal Edema Psy/Mental Status: Alert, Normal Affect, Normal Mood - Patient Data Lab Results Last 24 hrs: Laboratory Results - last 24 hr 01/10/21 01/10/21 Range/Units 05:51 05:51 WBC 19.00 H (4.23-9.07) K/mm3 RBC 3.75 L (4.63-6.08) M/mm3 Hgb 12.3 L (13.7-17.5) gm/dl Hct 36.8 L (40.1-51.0) % MCV 98.1 H (79.0-92.2) fl MCH 32.8 H (25.7-32.2) pg MCHC 33.4 (32.2-35.5) g/dl RDW Std Deviation 43.8 (35.1-43.9) fL Plt Count 316 (163-337) K/mm3 MPV 11.9 (9.4-12.3) fl Neut % (Auto) 83.7 H (34.0-67.9) % Lymph % (Auto) 6.1 L (21.8-53.1) % Hopkins % (Auto) 4.4 L (5.3-12.2) % Eos % (Auto) 1.4 (0.8-7.0) Baso % (Auto) 0.2 (0.1-1.2) % Neut # (Auto) 15.93 H (1.78-5.38) K/mm3 Lymph # (Auto) 1.15 L (1.32-3.57) K/mm3 Hopkins # (Auto) 0.83 H (0.30-0.82) K/mm3 Eos # (Auto) 0.26 (0.04-0.54) K/mm3 Baso # (Auto) 0.04 (0.01-0.08) K/mm3 Manual Slide Review Normal smear Sodium 139 (136-145) mEq/L Potassium 2.8 L (3.5-5.1) mEq/L Chloride 103 (98-107) mEq/L Carbon Dioxide 27 (21-32) mEq/L Anion Gap 11.8 (5-15) BUN 26 H (7-18) mg/dL Creatinine 1.3 (0.7-1.3) mg/dL Est Cr Clr Drug Dosing 50.14 mL/min Estimated GFR (MDRD) 55 (>60) mL/min BUN/Creatinine Ratio 20.0 H (14-18) Glucose 119 H (70-99) mg/dL Calcium 8.1 L (8.5-10.1) mg/dL Magnesium 1.9 (1.8-2.4) mg/dL Total Bilirubin 0.5 (0.2-1.0) mg/dL AST 62 H (15-37) U/L ALT 136 H (16-63) U/L Alkaline Phosphatase 87 (46-116) U/L Total Protein 6.1 L (6.4-8.2) g/dl Albumin 1.8 L (3.4-5.0) g/dl Globulin 4.3 gm/dL Albumin/Globulin Ratio 0.4 L (1-2) Result Diagrams: 01/10/21 05:51 01/10/21 05:51 Sepsis Event Note - Evaluation Sepsis Screening Result: Sepsis Risk - Focused Exam Vital Signs: Vital Signs Temp Pulse Resp BP Pulse Ox Pulse Ox 01/10/21 08:30 98.4 F 100 16 104/73 95 01/10/21 06:35 100 01/10/21 04:00 97.8 F 101 H 20 127/78 95 01/10/21 00:00 103 H 22 H 103/71 95 01/09/21 21:00 98.0 F 102 H 22 H 126/87 96 - Problem List & Annotations (1) Hypokalemia SNOMED Code(s): 42664796 Code(s): E87.6 - HYPOKALEMIA Status: Acute Current Visit: Yes (2) Alzheimer's dementia without behavioral disturbance SNOMED Code(s): 09923931 Code(s): G30.9 - ALZHEIMER'S DISEASE, UNSPECIFIED; F02.80 - DEMENTIA IN OTH DISEASES CLASSD ELSWHR W/O BEHAVRL DISTURB Status: Chronic Current Visit: Yes Qualifiers: Alzheimer's disease onset: unspecified onset Qualified Code(s): G30.9 - Alzheimer's disease, unspecified; F02.80 - Dementia in other diseases classified elsewhere without behavioral disturbance (3) Renal insufficiency SNOMED Code(s): 959380856, 709037082 Code(s): N28.9 - DISORDER OF KIDNEY AND URETER, UNSPECIFIED Status: Chronic Priority: High Current Visit: Yes (4) COVID-19 SNOMED Code(s): 042167411 Code(s): U07.1 - COVID-19 Status: Acute Current Visit: No - Problem List Review Problem List Initiated/Reviewed/Updated: Yes - My Orders Last 24 Hours: My Active Orders 01/10/21 09:00 Potassium Chloride [KCl in Water 10 MEQ/100 ML] 10 meq Premix Bag 1 bag IV Q1H - Assessment Assessment:: The patient is a 70-year-old gentleman who will be retained in ICU care secondary to his sepsis. The patient's TPN has been started as discussed with pharmacist. Repeat laboratory studies have been ordered. The patient's potassium has been replaced. He will continue on D5 and water to help improve his hypernatremia.The patient is currently anticoagulated with Lovenox at treatment dose to be continued. The patient's antihypertensive medications that have been oral have been on hold. The patient's blood pressure we monitored and his antihypertensives adjusted as necessary. Family members have not been ar ound during rounds and more information will needed to be obtained regarding patient's mental status and he has resuscitation status. The patient's stay of hospitalization is uncertain at this time. The patient has been retained longer than 96 hours due to his sepsis and his hypernatremia requiring slow adjustment. 01/07/2021 The patient is a 70-year-old gentleman who is being retained in the ICU. The patient's TPN is to be continued along with replacement of his potassium. The patient also will have D5 and water to help supplement and keep his sodium normal. Out of concern for sepsis the patient will be maintained on Zosyn. Repeat laboratory studies have also been ordered. The patient is anticoagulated with Lovenox. The patient's vital signs will be monitored and his antihypertensive medications will be adjusted as necessary. The patient's overall prognosis is poor due to his rapid decline in mental status. The patient's functional status is also been in rapid decline. Would recommend a family conference to help define plan of care. 01/08/2021 The patient is a 70-year-old gentleman who is being retained in the ICU. The patient is currently on TPN although this will be problematic in terms of its availability. Nurse at bedside reported that the patient had been able to swallow very thickened water without coughing or difficulties. I have ordered a swallow study by radiology to help confirm the degree of penetration that he may be experiencing. If not the patient will likely need to be on thickened liquids and/or a pured diet. The patient is on Zosyn this will be continued. Repeat laboratory studies have been ordered. The patient's overall prognosis is poor. Would recommend with social science teacher to obtain meeting with family to discuss future plan of care. The patient is currently in a DO NOT INTUBATE/DO NOT RESUSCITATE category. 01/09/2021 The patient is a 70-year-old gentleman who has underlying Alzheimer's dementia had been admitted secondary to worsening mental status after COVID-19. The patient today has had some improvement he is more alert today however, the patient is not verbal and he is not able to follow simple commands. The patient has been able to swallow thickened liquids and pured diet. The patient did not have any episodes of coughing. TPN is discontinued. The patient's central line has also been ordered to be discontinued. Due to over infection of COVID-19 pneumonia the patient will be maintained on Zosyn. I have ordered repeat lab oratory studies. I have also requested case management work with family in order to discuss future plan of care. We will downgrade the patient from ICU but maintain telemetry. The patient is in a DO NOT INTUBATE DO NOT RESUSCITATE category. 01/10/2021 Patient appears to be much improved today. He did respond to me when I first walked in with verbal communication. He is tolerating his thickened liquids and sodium is down to 139. He does continue on D5W with 20 of KCl at 70 mL/h. Potassium continues to be low at 2.8 which is decreased from yesterday. This will be adjusted. Liver enzymes continue to be slightly elevated, AST 62, ALT 136, but these are improving. He continues to be on Zosyn for sepsis and UTI. No growth in his urine. He has been on Zosyn for 8 days. White count is 19,000 but it is decreased. Blood cultures were also negative. There is no active infection apparent at this time. Patient needs to take enough free fluid orally that he will not become hyponatremic. We will discontinue his IV fluids and monitor him over the next couple of days. - Plan Plan:: Patient is a 70-year-old male with a history of diabetes and Alzheimer's dementia who was brought to the ER from [facility] [place] due to altered mental status. AMS Etiology unknown. Could be due to Covid encephalopathy, sepsis, metabolic events, hypernatremia, TIA/stroke CT of head - unable to complete DC Mcadams catheter Alzheimer's dementia Continue home medication memantine Likely exacerbating the initial altered mental status Acute hypoxic and hypercapnic respiratory failure Patient had been on 2 L since the positive Covid 19 test 10 days ago. He increased in need of oxygen the day before admission Currently on 2 L nasal cannula. Sepsis 2nd to UTI -resolved Tachycardia and tachypnea -likely not due to infection DC IV fluid DC IV antibiotic Blood culture no growth Urine culture UTI Urinalysis compatible with UTI DC Zosyn 2.25 g every 6 hour Urine culture negative Positive Covid 19 Had a positive COVID-19 test 10 days ago before admission received Regeneron D-dimer elevated. continue Lovenox 80 mg twice daily Inhalers Dehydration 3 L normal saline were given in the ER Continue IV fluid ASHLEY, creatinine 1.3 on 12/22/2020 Etiologies including prerenal cause, sepsis, ATN Creatinine 1.5 today Avoid nephrotoxic meds and contrast Repeat renal function in the morning disposition Elevation of D-dimer Could be due to COVID-19 infection or thromboembolic events Lovenox 80 mg twice daily Elevation of troponin 0.102-> 0.114-> 0.162 BNP 1064 Echocardiogram 01/02/2021: 1. Impaired relaxation (grade 1) pattern of LV diastolic filling. 2. Mild to moderate concentric left ventricular hypertrophy. 3. Grossly normal left ventricular systolic function with estimated ejection fraction of 55 to 60%. Regional wall motion abnormalities cannot not be excluded. 4. There is no evidence of cardiac tamponade. 5. Mild mitral valve regurgitation. 6. Trace tricuspid valve regurgitation. 7. Right ventricular systolic pressure is normal at 20.3. 8. Pericardial effusion is localized near the right atrium. Discussed with sister Gaby (POA) who refused to transfer him to higher level hospital. Aspirin and Lipitor Nutrition Oral intake has improved greatly. TPN was stopped 2 days ago. Hypernatremiaresolved 139 today DC [id number] KCl 150ml/hr DVT prophylaxis: Lovenox CODE STATUS: DNR/DNI Discussed with Sister Gaby who initially would like to have CPR only but she called us back later she and her family would like to have DNR/DNI. Disposition: TBD
[2021-01-10] MEDS: Potassium Chloride 10 MEQ in Premix Bag 1 BAG IV SCH ×5 (09:07→12:53)
[2021-01-10] MEDS: Metoprolol Tartrate 5 MG/5 ML SDV IVPUSH PRN (11:53)
[2021-01-10] MEDS: Potassium Chloride 20 MEQ in Dextrose 5% in Water 1,000 ML IV SCH ×2 (12:54)
[2021-01-10] MEDS: Pantoprazole 40 MG Vial IVPUSH SCH (20:35)
[2021-01-11] MEDS: Furosemide 20 MG/2 ML VIAL IVPUSH SCH (08:16)
[2021-01-11] MEDS: Enoxaparin 80 MG/0.8 ML Syringe SUBCUT SCH (08:16)
[2021-01-11 08:39] VITALS: BP 115/63; PULSE 93
[2021-01-11] MEDS ORDERED: Potassium Chloride 20 MEQ Tab.ER PO ONE (09:00)
--- NOTE | 2021-01-11 10:14 | PCM.DCSUM1 ---
Discharge Summary - Hospital Course HPI Initial Comments: Patient is a 70-year-old male with a history of diabetes and Alzheimer's dementia who was brought to the ER from [facility] due to altered mental status. Patient is normally minimally responsive but is now nonresponsive to verbal stimuli. Patient had positive COVID-19 test 10 days ago and received Regeneron. He was found to have trouble breathing and fast breathing. In the ER, temperature 39.5, tachycardia up to 138, tachypnea up to 30, oxygen desaturation 83%. Urinalysis is compatible with UTI. Chest x-ray no acute change. Assessment/Plan Comment:: Patient is a 70-year-old male with a history of diabetes and Alzheimer's dementia who was brought to the ER from [facility] due to altered mental status. AMS Etiology unknown. Could be due to sepsis, metabolic events, TIA/stroke CT of head Mcadams catheter Alzheimer's dementia Continue home medication memantine Acute hypoxic and hypercapnic respiratory failure Patient had been on 2 L since the positive Covid 19 test 10 days ago until he needs more oxygen. ABG - ph 7.28, pCO2 71 Bipap prn to keep PCO2 < 50 and SPO2 > 90% Etiology for CO2 retention unknown. CT of chest was ordered but is not able to do due to patient condition and BiPAP Troponin BNP Sepsis 2nd to UTI Tachycardia and tachypnea 3 L normal saline was given in the ER Continue IV fluid IV antibiotic Blood culture Urine culture UTI Urinalysis compatible with UTI Zosyn 2.25 g every 6 hour Positive Covid 19 Had a positive COVID-19 test that came days ago I would not like to initiate remdesivir at this moment I would not like you to initiate a steroid at this moment since he has bacterial sepsis D-dimer elevated. I will initiate Lovenox 80 mg twice daily Inhalers Chest x-ray-no acute change Chest CT was ordered Dehydration 3 L normal saline were given in the ER Continue IV fluid ASHLEY, creatinine 1.3 on 12/22/2020 Etiologies including prerenal cause, sepsis, ATN Avoid nephrotoxic meds and contrast Repeat renal function in the morning disposition Elevation of D-dimer Could be due to COVID-19 infection or thromboembolic events Lovenox 80 mg twice daily DVT prophylaxis: Lovenox CODE STATUS: DNR/DNI Discussed with Sister Gaby who initially would like to have CPR only but she called us back later she and her family would like to have DNR/DNI. Disposition: Greater than 2 midnights - Mortality Measure Prognosis:: Poor Diagnosis: Stroke: No - Discharge Data Discharge Date: 01/11/21 Discharge Disposition: DC/Tfer to [facility] Condition: Good - Referral to Home Health Primary Care Physician: Todd Perdue MD - Discharge Diagnosis/Problem(s) (1) Hypokalemia SNOMED Code(s): 37320223 ICD Code: E87.6 - HYPOKALEMIA Status: Acute Current Visit: Yes (2) Alzheimer's dementia without behavioral disturbance SNOMED Code(s): 24220971 ICD Code: G30.9 - ALZHEIMER'S DISEASE, UNSPECIFIED; F02.80 - DEMENTIA IN OTH DISEASES CLASSD ELSWHR W/O BEHAVRL DISTURB Status: Chronic Current Visit: Y es Qualifiers: Alzheimer's disease onset: unspecified onset Qualified Code(s): G30.9 - Alzheimer's disease, unspecified; F02.80 - Dementia in other diseases classified elsewhere without behavioral disturbance (3) Renal insufficiency SNOMED Code(s): 104633402, 639343323 ICD Code: N28.9 - DISORDER OF KIDNEY AND URETER, UNSPECIFIED Status: Chronic Priority: High Current Visit: Yes (4) COVID-19 SNOMED Code(s): 561410674 ICD Code: U07.1 - COVID-19 Status: Acute Current Visit: No - Patient Summary/Data Consults: Consultations 01/02/21 14:20 OT Evaluation and Treatment [CONS] Routine PT Evaluation and Treatment [CONS] Routine SALES OPERATIONS ASSISTANT Evaluation and Treatment [CONS] Routine 01/03/21 15:46 Consult to Lease Examiner [CONS] Routine Hospital Course: Patient was admitted with significant altered mental status, dehydration, hypernatremia, sepsis, and renal insufficiency. Patient also had some cardiac strain demonstrated by elevated troponin of 0.162 and a BNP of 1064. Echocardiogram was done which showed diastolic dysfunction and grossly normal left-ventricular systolic function. Please see full echocardiogram result for details. Patient had improving mental status throughout the hospitalization and was more responsive last 2 days with even occasional verbal responses. He was on Zosyn for total of 8 days. Urinalysis was negative. He was weaned back down to 2 L nasal cannula. D-dimer was mildly elevated 2.49 which would be consistent with Covid infection. He was placed on full dose anticoagulation with Lovenox while hospitalized. This would not need to be continued. It is documented that the power of universal banker, his Sister Gaby, did not want any more aggressive care including transfer to a higher level of care. At discharge hypernatremia resolved, ASHLEY resolved, dehydration resolved, sepsis resolved, respiratory failure resolved with residual mild hypoxemia requiring 2 L per nasal cannula. He did have significant hypokalemia during hospitalization likely contributed by chlorthalidone. Also some significant tachycardia likely secondary to underlying cardiac issues, deconditioning, and Covid infection. He will need follow-up with his primary care provider within a week as well as repeat potassium level within the next couple of days to be followed by his primary care provider. - Patient Instructions Diet: Usual Diet as Tolerated Driving: Do Not Drive Other/Special Instructions: Patient continues on 2 L nasal cannula. Please titrate to keep oxygen saturations above 90%. Also, patient had significant hypokalemia likely worsened by chlorthalidone. Chlorthalidone will not be continued. Please recheck a potassium level in the next couple of days. Have patient follow-up with primary care provider within a week, and please send all lab results to primary care provider. - Discharge Plan *PRESCRIPTION DRUG MONITORING PROGRAM REVIEWED*: No *COPY OF PRESCRIPTION DRUG MONITORING REPORT IN PATIENT ERNESTO: No Prescriptions/Med Rec: Albuterol/Ipratropium [DuoNeb 3.0-0.5 MG/3 ML] 3 ml NEB Q4H PRN #100 neb PRN Reason: Shortness Of Breath/wheezing Home Medications: Home Meds Acetaminophen 650 mg PO ASDIRECTED PRN 12/22/20 [History] Cholecalciferol (Vitamin D3) [Vitamin D3] 25 mcg PO DAILY 12/22/20 [History] Docusate Sodium 100 mg PO BID 12/22/20 [History] Escitalopram [Lexapro] 20 mg PO DAILY 12/22/20 [History] Magnesium Hydroxide [Milk of Magnesia] 2,400 mg PO ASDIRECTED PRN 12/22/20 [History] Memantine HCl [Namenda] 10 mg PO BID 12/22/20 [History] Omeprazole 20 mg PO ACBREAKFAST 12/22/20 [History] buPROPion [buPROPion XL] 150 mg PO DAILY 12/22/20 [History] polyethylene glycoL 3350 [Miralax] 17 gm PO DAILY 12/22/20 [History] Albuterol/Ipratropium [DuoNeb 3.0-0.5 MG/3 ML] 3 ml NEB Q4H PRN #100 neb 01/11/21 [Rx] Patient Handouts: COVID-19 Frequently Asked Questions, COVID-19, Sepsis, Self Care, Adult Referrals: Todd Perdue MD [Primary Care Provider] - 01/16/21 1:00 pm (this is your check in time.) - Discharge Summary/Plan Comment DC Time >30 min.: Yes Total # of Minutes for Discharge Time: 45 minutes to see patient, complete paperwork for transfer back to [facility], discharge summary, and evaluation. - General Info Date of Service: 01/11/21 Admission Dx/Problem (Free Text: Admission Diagnosis/Problem Admission Diagnosis/Problem Hypoxia, underlying Alzheimer's dementia, recent COVID-19 Subjective Update: Patient opened eyes and tracks me with his eyes while is in the room. He did not speak to me today. He did not exhibit any signs of pain. Functional Status: Reports: Pain Controlled - Patient Data Vitals - Most Recent: Last Vital Signs Temp 97.9 F 01/11/21 08:15 Pulse 93 01/11/21 08:24 Resp 20 01/11/21 08:15 BP 115/63 01/11/21 08:24 Pulse Ox 94 L 01/11/21 08:24 Weight - Most Recent: 196 lb 14.4 oz I&O - Last 24 hours: Intake & Output 01/10/21 01/11/21 01/11/21 22:59 06:59 14:59 Intake Total 1030 Balance 1030 Lab Results - Last 24 hrs: Laboratory Results - last 24 hr 01/10/21 01/11/21 01/11/21 Range/Units 05:51 06:42 06:42 WBC 20.07 H (4.23-9.07) K/mm3 RBC 4.03 L (4.63-6.08) M/mm3 Hgb 12.9 L (13.7-17.5) gm/dl Hct 39.3 L (40.1-51.0) % MCV 97.5 H (79.0-92.2) fl MCH 32.0 (25.7-32.2) pg MCHC 32.8 (32.2-35.5) g/dl RDW Std Deviation 44.0 H (35.1-43.9) fL Plt Count 387 H (163-337) K/mm3 MPV 11.5 (9.4-12.3) fl Neut % (Auto) 86.2 H (34.0-67.9) % Lymph % (Auto) 5.9 L (21.8-53.1) % Wilkinson % (Auto) 4.0 L (5.3-12.2) % Eos % (Auto) 1.2 (0.8-7.0) Baso % (Auto) 0.1 (0.1-1.2) % Neut # (Auto) 17.29 H (1.78-5.38) K/mm3 Lymph # (Auto) 1.18 L (1.32-3.57) K/mm3 Wilkinson # (Auto) 0.81 (0.30-0.82) K/mm3 Eos # (Auto) 0.25 (0.04-0.54) K/mm3 Baso # (Auto) 0.02 (0.01-0.08) K/mm3 Manual Slide Review Normal smear Sodium 140 (136-145) mEq/L Potassium 3.2 L (3.5-5.1) mEq/L Chloride 105 (98-107) mEq/L Carbon Dioxide 25 (21-32) mEq/L Anion Gap 13.2 (5-15) BUN 28 H (7-18) mg/dL Creatinine 1.1 (0.7-1.3) mg/dL Est Cr Clr Drug Dosing 59.26 mL/min Estimated GFR (MDRD) > 60 (>60) mL/min BUN/Creatinine Ratio 25.5 H (14-18) Glucose 113 H (70-99) mg/dL Calcium 8.4 L (8.5-10.1) mg/dL Phosphorus 2.9 (2.6-4.7) mg/dL Magnesium 2.0 (1.8-2.4) mg/dL Total Bilirubin 0.4 (0.2-1.0) mg/dL AST 41 H (15-37) U/L ALT 100 H (16-63) U/L Alkaline Phosphatase 87 (46-116) U/L C-Reactive Protein 2.0 H* (<1.0) mg/dL Total Protein 6.6 (6.4-8.2) g/dl Albumin 2.0 L (3.4-5.0) g/dl Globulin 4.6 gm/dL Albumin/Globulin Ratio 0.4 L (1-2) Procalcitonin 0.30 H ng/mL Med Orders - Current: Current Medications Albuterol/Ipratropium (Albuterol/Ipratropium 3.0-0.5 Mg/3 Ml Neb Soln) 3 ml NEB Q4H PRN PRN Reason: Shortness Of Breath/wheezing Last Admin: 01/08/21 08:31 Dose: 3 ml Documented by: Enoxaparin Sodium (Enoxaparin 80 Mg/0.8 Ml Syringe) 80 mg SUBCUT BID [facility] Last Admin: 01/11/21 08:16 Dose: 80 mg Documented by: Furosemide (Furosemide 20 Mg/2 Ml Vial) 20 mg IVPUSH DAILY [facility] Last Admin: 01/11/21 08:16 Dose: 20 mg Documented by: Hydralazine HCl (Hydralazine 20 Mg/Ml Sdv) 10 mg IVPUSH Q4H PRN PRN Reason: Hypertension Last Admin: 01/02/21 22:07 Dose: 10 mg Documented by: Promethazine HCl 12.5 mg/ (Sodium Chloride) 50.5 mls @ 100 mls/hr IV Q6H PRN PRN Reason: Nausea/Vomiting Metoprolol Tartrate (Metoprolol Tartrate 5 Mg/5 Ml Sdv) 5 mg IVPUSH Q3H PRN PRN Reason: Tachycardia Last Admin: 01/10/21 11:53 Dose: 5 mg Documented by: Pantoprazole Sodium (Pantoprazole 40 Mg Vial) 40 mg IVPUSH BEDTIME [facility] Last Admin: 01/10/21 20:35 Dose: 40 mg Documented by: Sodium Chloride (Sodium Chloride 0.9% 10 Ml Syringe) 10 ml FLUSH ASDIRECTED PRN PRN Reason: Keep Vein Open Last Admin: 01/01/21 23:57 Dose: 10 ml Documented by: Discontinued Medications Acetaminophen (Acetaminophen 325 Mg Tab) 650 mg PO Q6H PRN PRN Reason: Pain (Mild 1-3)/fever Albuterol/Ipratropium (Albuterol/Ipratropium 3.0-0.5 Mg/3 Ml Neb Soln) 3 ml NEB ONETIME ONE Stop: 01/01/21 23:15 Last Admin: 01/01/21 23:37 Dose: 3 ml Documented by: Atorvastatin Calcium (Atorvastatin 40 Mg Tab) 40 mg PO BEDTIME [facility] Last Admin: 01/05/21 20:01 Dose: Not Given Documented by: Bupropion HCl (Bupropion 150 Mg Tab.Er) 150 mg PO DAILY [facility] Last Admin: 01/06/21 08:18 Dose: Not Given Documented by: Cholecalciferol (Cholecalciferol (Vitamin D3) 25 Mcg Tab) 25 mcg PO DAILY [facility] Last Admin: 01/06/21 08:18 Dose: Not Given Documented by: Dexamethasone (Dexamethasone 4 Mg/Ml Sdv) 6 mg IVPUSH ONETIME ONE Stop: 01/01/21 23:14 Last Admin: 01/01/21 23:57 Dose: 6 mg Documented by: Docusate Sodium (Docusate Sodium 100 Mg Cap) 100 mg PO BID [facility] Last Admin: 01/06/21 08:17 Dose: Not Given Documented by: Heparin Sodium (Porcine) (Heparin Sodium 5,000 Units/Ml Vial) 5,000 units SUBCUT Q8H [facility] Last Admin: 01/02/21 15:17 Dose: 5,000 units Documented by: Sodium Chloride (Normal Saline) 1,000 mls @ 125 mls/hr IV ASDIRECTED [facility] Last Admin: 01/01/21 23:56 Dose: 125 mls/hr Documented by: Sodium Chloride (Normal Saline) 1,000 mls @ 1,000 mls/hr IV ONETIME ONE Stop: 01/02/21 01:02 Last Admin: 01/02/21 00:17 Dose: 1,000 mls/hr Documented by: Ceftriaxone Sodium 2 gm/ (Sodium Chloride) 100 mls @ 200 mls/hr IV ONETIME ONE Stop: 01/02/21 01:26 Last Admin: 01/02/21 01:17 Dose: 200 mls/hr Documented by: Sodium Chloride (Normal Saline) 1,000 mls @ 1,000 mls/hr IV ONETIME ONE Stop: 01/02/21 02:10 Last Admin: 01/02/21 01:18 Dose: 1,000 mls/hr Documented by: Lactated Ringer's (Ringers, Lactated) 1,000 mls @ 1,000 mls/hr IV .BOLUS ONE Stop: 01/02/21 02:10 Last Admin: 01/02/21 02:52 Dose: 1,000 mls/hr Documented by: Ceftriaxone Sodium 1 gm/ (Sodium Chloride) 100 mls @ 200 mls/hr IV Q24H [facility] Potassium Chloride/Sodium Chloride (Normal Saline With 20 Meq Kcl) 1,000 mls @ 75 mls/hr IV ASDIRECTED [facility] Last Admin: 01/02/21 15:20 Dose: 75 mls/hr Documented by: Piperacillin Sod/Tazobactam (Sod 4.5 gm/ Sodium Chloride) 100 mls @ 200 mls/hr IV ONETIME ONE Stop: 01/02/21 16:29 Last Admin: 01/02/21 15:26 Dose: 200 mls/hr Documented by: Piperacillin Sod/Tazobactam (Sod 4.5 gm/ Sodium Chloride) 100 mls @ 25 mls/hr IV Q8H [facility] Last Admin: 01/03/21 19:47 Dose: 25 mls/hr Documented by: Potassium Cl/Dextrose/Lact Ringer's (D5 Lr With 20 Meq Kcl) 1,000 mls @ 65 mls/hr IV ASDIRECTED [facility] Last Admin: 01/02/21 17:29 Dose: 65 mls/hr Documented by: Potassium Chloride 20 meq/ (Dextrose/Water) 1,010 mls @ 101 mls/hr IV ASDIRECTED [facility] Potassium Chloride 20 meq/ (Dextrose/Water) 1,010 mls @ 101 mls/hr IV Q10H [facility] Last Admin: 01/04/21 23:31 Dose: Not Given Documented by: Piperacillin Sod/Tazobactam (Sod 4.5 gm/ Sodium Chloride) 100 mls @ 25 mls/hr IV Q8H [facility] Last Admin: 01/10/21 03:44 Dose: 25 mls/hr Documented by: Potassium Chloride 20 meq/ (Dextrose/Water) 1,010 mls @ 150 mls/hr IV Q6H [facility] Stop: 01/04/21 18:00 Last Admin: 01/04/21 20:30 Dose: Not Given Documented by: Multivitamins/Minerals 10 ml/Amino Ac/Electrol/Dextrose/Calcium 1,010 mls @ 40 mls/hr IV TITRATE [facility] Stop: 01/05/21 14:59 Last Infusion: 01/05/21 09:32 Dose: 0 mls/hr Documented by: Fat Emulsion Intravenous (Intralipid 20%) 500 mls @ 62.5 mls/hr IV MoWeFr [facility] Last Admin: 01/04/21 15:32 Dose: 62.5 mls/hr Documented by: Non-Formulary Medication (Nf Drug) 520 mls @ 55 mls/hr .XX ONETIME ONE Stop: 01/05/21 12:27 Last Admin: 01/05/21 03:53 Dose: Not Given Documented by: Potassium Chloride 20 meq/ (Dextrose/Water) 1,010 mls @ 100 mls/hr IV Q20H [facility] Stop: 01/05/21 12:00 Last Infusion: 01/05/21 09:33 Dose: 150 mls/hr Documented by: Potassium Chloride 10 meq/ (Premix) 100 mls @ 100 mls/hr IV Q1H [facility] Stop: 01/04/21 16:59 Last Admin: 01/04/21 16:32 Dose: 100 mls/hr Documented by: Potassium Chloride 10 meq/ (Premix) 100 mls @ 100 mls/hr IV Q1H [facility] Stop: 01/05/21 14:59 Last Admin: 01/05/21 15:29 Dose: 100 mls/hr Documented by: Dextrose/Water (Dextrose 5% In Water) 1,000 mls @ 100 mls/hr IV ASDIRECTED [facility] Dextrose/Water (Dextrose 5% In Water) 1,000 mls @ 150 mls/hr IV ASDIRECTED [facility] Last Infusion: 01/06/21 11:51 Dose: 0 mls/hr Documented by: Non-Formulary Medication (Nf Drug) 520 mls @ 0 mls/hr .XX ONETIME ONE Stop: 01/05/21 09:16 Last Admin: 01/05/21 09:35 Dose: Not Given Documented by: Potassium Chloride 20 meq/ (Dextrose/Water) 1,010 mls @ 175 mls/hr IV Q6H [facility] Last Infusion: 01/06/21 12:49 Dose: 100 mls/hr Documented by: Fat Emulsion Intravenous (Intralipid 20%) 500 mls @ 62.5 mls/hr IV MoWeFr [facility] Last Admin: 01/06/21 15:28 Dose: 62.5 mls/hr Documented by: Multivitamins/Minerals 10 ml/Amino Ac/Electrol/Dextrose/Calcium 1,010 mls @ 40 mls/hr IV Q24H [facility] Stop: 01/07/21 11:59 Last Admin: 01/06/21 12:29 Dose: 40 mls/hr Documented by: Potassium Chloride 10 meq/ (Premix) 100 mls @ 100 mls/hr IV Q1H [facility] Stop: 01/06/21 12:59 Last Admin: 01/06/21 12:40 Dose: 100 mls/hr Documented by: Potassium Chloride 20 meq/ (Dextrose/Water) 1,010 mls @ 100 mls/hr IV Q10H [facility] Last Admin: 01/07/21 01:48 Dose: 100 mls/hr Documented by: Potassium Chloride 20 meq/ (Dextrose/Water) 1,010 mls @ 100 mls/hr IV Q10H [facility] Stop: 01/07/21 14:00 Last Admin: 01/07/21 12:33 Dose: Not Given Documented by: Multivitamins/Minerals 10 ml/Amino Ac/Electrol/Dextrose/Calcium 1,010 mls @ 55 mls/hr IV ONETIME ONE Stop: 01/08/21 08:21 Last Admin: 01/07/21 13:54 Dose: 55 mls/hr Documented by: Potassium Chloride 20 meq/ (Dextrose/Water) 1,010 mls @ 85 mls/hr IV Q10H [facility] Stop: 01/08/21 13:00 Last Admin: 01/08/21 10:15 Dose: Not Given Documented by: Potassium Chloride 10 meq/ (Premix) 100 mls @ 100 mls/hr IV Q1H [facility] Stop: 01/07/21 14:59 Last Admin: 01/07/21 14:48 Dose: 100 mls/hr Documented by: Multivitamins/Minerals 10 ml/Amino Ac/Electrol/Dextrose/Calcium 1,010 mls @ 70 mls/hr IV ONETIME ONE Stop: 01/08/21 23:10 Last Admin: 01/08/21 09:18 Dose: 70 mls/hr Documented by: Potassium Chloride 10 meq/ (Premix) 100 mls @ 100 mls/hr IV Q1H [facility] Stop: 01/08/21 13:59 Last Admin: 01/08/21 13:29 Dose: 100 mls/hr Documented by: Potassium Chloride 20 meq/ (Dextrose/Water) 1,010 mls @ 70 mls/hr IV Q10H [facility] Last Admin: 01/09/21 08:07 Dose: Not Given Documented by: Amino Ac/Electrol/Dextrose/Calcium (Clinimix E 09/01) 1,000 mls @ 70 mls/hr IV ONETIME ONE Stop: 01/09/21 13:47 Potassium Chloride 20 meq/ (Dextrose/Water) 1,010 mls @ 70 mls/hr IV Q14H [facility] Last Admin: 01/10/21 12:54 Dose: Not Given Documented by: Potassium Chloride 20 meq/ (Dextrose/Water) 1,010 mls @ 70 mls/hr IV Q14H [facility] Last Admin: 01/10/21 09:01 Dose: 70 mls/hr Documented by: Potassium Chloride 10 meq/ (Premix) 100 mls @ 100 mls/hr IV Q1H [facility] Stop: 01/10/21 12:59 Last Admin: 01/10/21 12:53 Dose: 100 mls/hr Documented by: Insulin Human Lispro (Insulin Lispro 100 Unit/Ml 10 Ml Vial) 0 unit SUBCUT Q6H [facility]; Protocol Last Admin: 01/09/21 03:42 Dose: Not Given Documented by: Memantine (Memantine 10 Mg Tab) 10 mg PO BID [facility] Last Admin: 01/06/21 08:18 Dose: Not Given Documented by: Metoprolol Tartrate (Metoprolol Tartrate 5 Mg/5 Ml Sdv) 2.5 mg IVPUSH Q2H PRN PRN Reason: Tachycardia Last Admin: 01/03/21 08:25 Dose: 2.5 mg Documented by: Metoprolol Tartrate (Metoprolol Tartrate 5 Mg/5 Ml Sdv) 5 mg IVPUSH Q4H PRN PRN Reason: Tachycardia Last Admin: 01/05/21 18:00 Dose: 5 mg Documented by: Morphine Sulfate (Morphine 2 Mg/Ml Syringe) 2 mg IVPUSH Q4H PRN PRN Reason: Pain (severe 7-10) Stop: 01/03/21 14:24 Last Admin: 01/02/21 22:49 Dose: 2 mg Documented by: Pantoprazole Sodium (Pantoprazole 40 Mg Tab.Cr) 40 mg PO ACBREAKFAST [facility] Last Admin: 01/05/21 05:31 Dose: Not Given Documented by: Potassium Chloride (Potassium Chloride 20 Meq Tab.Er) 40 meq PO ONETIME ONE Stop: 01/11/21 09:01 Last Admin: 01/11/21 08:16 Dose: 40 meq Documented by: Risperidone (Risperidone 0.25 Mg Tab) 0.25 mg PO DAILY [facility] Risperidone (Risperidone 1 Mg Tab) 1 mg PO BEDTIME [facility] - Exam Quality Assessment: Reports: Supplemental Oxygen General: Reports: Alert HEENT: Reports: Pupils Equal, Mucous Membr. Moist/[place] Neck: Reports: Supple Lungs: Reports: Clear to Auscultation, Normal Respiratory Effort Cardiovascular: Reports: Regular Rate, Regular Rhythm GI/Abdominal Exam: Normal Bowel Sounds, Soft, Non-Tender, No Distention Extremities: Normal Inspection, Normal Range of Motion, Non-Tender, No Pedal Edema, Normal Capillary Refill Skin: Reports: Warm, Dry, Intact
== END 2021-01-11 13:04 | DRG 871 ==
LOC: JD.ED 22:58 → JD.MS 01-02 13:33 → JD.ICU 01-02 15:05 → JD.MS 01-10 12:33
PROVIDERS: ADMIT Internal Medicine; ATTEND Internal Medicine
PROC: 02H633Z Insertion of Infusion Device into Right Atrium, Percutaneous Approach (ICD-10-PCS; 2021-01-04)
PROC: 3E0336Z Introduction of Nutritional Substance into Peripheral Vein, Percutaneous Approach (ICD-10-PCS; principal; 2021-01-07)
DX: A41.9 Sepsis, unspecified organism (principal); J96.01 Acute respiratory failure with hypoxia; J96.02 Acute respiratory failure with hypercapnia; N17.0 Acute kidney failure with tubular necrosis; N30.00 Acute cystitis without hematuria; E87.0 Hyperosmolality and hypernatremia; G93.49 Other encephalopathy; B94.8 Sequelae of other specified infectious and parasitic diseases; Z66 Do not resuscitate; G30.9 Alzheimer's disease, unspecified; F02.80 Dementia in other diseases classified elsewhere, unspecified severity, without behavioral disturbance, psychotic disturbance, mood disturbance, and anxiety; E86.0 Dehydration; K21.9 Gastro-esophageal reflux disease without esophagitis; N18.9 Chronic kidney disease, unspecified; F31.9 Bipolar disorder, unspecified; R32 Unspecified urinary incontinence; I08.1 Rheumatic disorders of both mitral and tricuspid valves; E87.6 Hypokalemia; Z79.899 Other long term (current) drug therapy
CPT/HCPCS: 36415; 36569; 36600; 71045; 71045-26; 80048; 80053; 81001; 82803; 82947; 83605; 83735; 83880; 84100; 84145; 84484; 85025; 85379; 86140; 87040; 87086; 92610-GN; 93306; 94640; 94660; 94762; 96365; 96375; 97140-GP; 97162-GP; 97530-GP; 99285-25; A9270-GY; C1751; C9113; J0360; J0696; J1100; J1644; J1650; J1815-GY; J1940; J2270; J2543; J3480; J3490; J7030; J7060; J7120; J7620-GY

== ENCOUNTER 2021-01-12 23:35 | Emergency (ER) | payer MEDICARE, MEDICAID ==
[2021-01-13] MEDS ORDERED: Sodium Chloride 0.9% 1,000 ML IV ONE (00:18)
[2021-01-13] MEDS ORDERED: Sodium Chloride 0.9% 10 ML Syringe FLUSH PRN (00:18)
--- NOTE | 2021-01-13 00:22 | EDM.PDOC ---
ED HPI GENERAL MEDICAL PROBLEM - General Chief Complaint: Fever Stated Complaint: [facility] Time Seen by Provider: 01/12/21 23:45 Source of Information: Reports: Old Records (D/C summary 01/11/2021), RN Notes Reviewed History Limitations: Reports: Physical Impairment (Patient nonverbal, dementia) - History of Present Illness INITIAL COMMENTS - FREE TEXT/NARRATIVE: Mr. Begum is a pleasantly demented, non-verbal 70-year-old gentleman who is now brought to the ED by EMS from [facility] with a report of fever and rash. It is reported that he had a temperature of 103.7, but was given acetaminophen. It was also reported that he has had a rash since around 21:30 tonight. EMS reported to the patient's nurse that the temperature in the patient's room at [facility] was about 100 degrees, and that he was covered with blankets. Medical records indicate that the patient tested positive for the SARS-CoV-2 virus on 12/23/2020. He was admitted to this hospital on 01/02/2021 for an altered mental status, tachycardia, tachypnea, a fever, and hypoxemia. His power of tax associate attorney, his sister Gaby, did not want any more aggressive care, including transfer to a higher level of care. He was also originally thought to have a UTI, which ultimately proved negative. He was found to have hyponatremia, acute renal insufficiency, an elevated troponin, an elevated pro- BNP, and an elevated D-dimer. During his hospitalization, an echocardiogram demonstrated diastolic dysfunction, but a grossly normal systolic LV function. He was treated with IV Zosyn for 8 days. His oxygen requirement was weaned down to 2 L per nasal cannula. His elevated D-dimer was felt secondary to his earlier COVID-19. He was anticoagulated with Lovenox. His hyponatremia and acute kidney injury resolved. His tachycardia was thought secondary to his underlying cardiac issues, deconditioning, and COVID-19. He was discharged home yesterday, 01/11/2021 with no antibiotics and discontinuation of his previously prescribed chlorthalidone, as it was thought likely responsible for his hypokalemia. Here in the ED tonight, the patient's initial BP is found to be mildly elevated at 144/95, with tachycardia of 130 bpm, and tachypnea of 26 rpm. He is afebrile, saturating 91% on room air. PMHx/PSHx/SocHx from prior medical records. Due to the patient's dementia, a recent review of systems is not obtainable. The patient's PCP is Dr. Todd Perdue. - Related Data Allergies Allergy/AdvReac Type Severity Reaction Status Date / Time No Known Allergies Allergy Verified 01/13/21 00:09 Home Meds: Home Meds Acetaminophen 650 mg PO ASDIRECTED PRN 12/22/20 [History] Cholecalciferol (Vitamin D3) [Vitamin D3] 25 mcg PO DAILY 12/22/20 [History] Escitalopram [Lexapro] 20 mg PO DAILY 12/22/20 [History] Magnesium Hydroxide [Milk of Magnesia] 2,400 mg PO ASDIRECTED PRN 12/22/20 [History] Memantine HCl [Namenda] 10 mg PO BID 12/22/20 [History] Omeprazole 20 mg PO ACBREAKFAST 12/22/20 [History] polyethylene glycoL 3350 [Miralax] 17 gm PO DAILY 12/22/20 [History] Albuterol/Ipratropium [DuoNeb 3.0-0.5 MG/3 ML] 3 ml NEB Q4H PRN #100 neb 01/11/21 [Rx] Sennosides/Docusate Sodium [Senna-S] 1 tab PO BID 01/13/21 [History] Past Medical History Cardiovascular History: Reports: PVD Gastrointestinal History: Reports: GERD Genitourinary History: Reports: Urinary Incontinence Neurological History: Reports: Alzheimers Disease Psychiatric History: Reports: Bipolar Endocrine/Metabolic History: Reports: Diabetes, Type II - Infectious Disease History Infectious Disease History: Reports: Novel Coronavirus (dx'd 12/23/2020) Social & Family History - Tobacco Use Tobacco Use Status *Q: Former Tobacco User Years of Tobacco use: 6 Packs/Tins Daily: 0.3 Month/Year Tobacco Last Used: Quit 2007 - Living Situation & Occupation Living situation: Reports: Single, Extended Care Facility ([facility]) Occupation: Retired ED ROS GENERAL - Review of Systems Review Of Systems: Unable To Obtain Reason Not Obtained: Dementia ED EXAM, SEPSIS - Physical Exam Exam: See Below Exam Limited By: Altered Mental Status General Appearance: WD/WN, No Apparent Distress Eye Exam: Bilateral Eye: EOMI, Normal Inspection Ears: Normal External Exam Nose: Normal Inspection Throat/Mouth: Normal Inspection, Normal Lips, No Airway Compromise Head: Atraumatic, Normocephalic Neck: Normal Inspection Respiratory/Chest: No Respiratory Distress, Lungs Clear, Normal Breath Sounds, No Accessory Muscle Use Cardiovascular: Normal Peripheral Pulses, No Edema, No Gallop, No JVD, No Murmur, No Rub, Tachycardia (regular) Peripheral Pulses: 3+: Radial (L), Radial (R) GI/Abdominal Exam: Normal Bowel Sounds, Soft, Non-Tender, No Organomegaly, No Distention, No Abnormal Bruit, No Mass Back: Normal Inspection, Full Range of Motion, NT Extremities: Normal Inspection, Normal Range of Motion, No Pedal Edema, Normal Capillary Refill Skin: Warm, Dry, Intact, Normal Color, Rash (Diffuse maculopapular) Course - Vital Signs Last Recorded V/S: Last Vital Signs Temp 37.4 C 01/13/21 00:04 Pulse 117 H 01/13/21 03:52 Resp 26 H 01/13/21 00:04 BP 121/78 01/13/21 03:52 Pulse Ox 91 L 01/13/21 03:52 - Orders/Labs/Meds Orders: Active Orders 24 hr Category Date Time Status Blood Pressure Mgt: Sepsis [RC] Q15MX2 Care 01/13/21 00:18 Active BLOOD CULTURE [MREF] Stat Lab 01/13/21 00:30 Received BLOOD CULTURE [MREF] Stat Lab 01/13/21 00:40 Received Sodium Chloride 0.9% [Normal Saline] 1,000 ml Med 01/13/21 02:30 Active IV ASDIRECTED Sodium Chloride 0.9% [Saline Flush] Med 01/13/21 00:18 Active 10 ml FLUSH ASDIRECTED PRN Blood Culture x2 Reflex Set [OM.PC] Stat Oth 01/13/21 00:18 Ordered Saline Lock Insert [OM.PC] Stat Oth 01/13/21 00:18 Ordered Medication Orders Sodium Chloride (Normal Saline) 1,000 mls @ 150 mls/hr IV ASDIRECTED GIFTY Last Admin: 01/13/21 02:38 Dose: 150 mls/hr Documented by: TINO Sodium Chloride (Sodium Chloride 0.9% 10 Ml Syringe) 10 ml FLUSH ASDIRECTED PRN PRN Reason: Keep Vein Open Last Admin: 01/13/21 00:29 Dose: 10 ml Documented by: TINO Labs: Laboratory Tests 01/13/21 01/13/21 01/13/21 Range/Units 00:00 00:00 00:00 WBC 24.99 H (4.23-9.07) K/mm3 RBC 4.17 L (4.63-6.08) M/mm3 Hgb 13.7 (13.7-17.5) gm/dl Hct 41.6 (40.1-51.0) % MCV 99.8 H (79.0-92.2) fl MCH 32.9 H (25.7-32.2) pg MCHC 32.9 (32.2-35.5) g/dl RDW Std Deviation 46.5 H (35.1-43.9) fL Plt Count 482 H D (163-337) K/mm3 MPV 11.1 (9.4-12.3) fl Neutrophils % (Manual) 88 H (40-60) % Band Neutrophils % 2 (0-10) % Lymphocytes % (Manual) 4 L (20-40) % Atypical Lymphs % 0 % Monocytes % (Manual) 6 (2-10) % Eosinophils % (Manual) 0 L (0.8-7.0) % Basophils % (Manual) 0 L (0.2-1.2) Toxic Granulation 1+ slight Platelet Estimate Increased Polychromasia 1+ slight Anisocytosis 1+ slight Stomatocytes 1+ slight RBC Morph Comment Not Reportable PT 11.7 (9.7-12.0) SECONDS INR 1.06 Sodium 145 (136-145) mEq/L Potassium 3.6 (3.5-5.1) mEq/L Chloride 110 H (98-107) mEq/L Carbon Dioxide 25 (21-32) mEq/L Anion Gap 13.6 (5-15) BUN 32 H (7-18) mg/dL Creatinine 1.6 H (0.7-1.3) mg/dL Est Cr Clr Drug Dosing 40.74 mL/min Estimated GFR (MDRD) 43 (>60) mL/min BUN/Creatinine Ratio 20.0 H (14-18) Glucose 140 H (70-99) mg/dL Lactic Acid (0.4-2.0) mmol/L Calcium 8.9 (8.5-10.1) mg/dL Total Bilirubin 0.4 (0.2-1.0) mg/dL AST 58 H (15-37) U/L ALT 104 H (16-63) U/L Alkaline Phosphatase 106 (46-116) U/L C-Reactive Protein 0.7 (<1.0) mg/dL Total Protein 7.0 (6.4-8.2) g/dl Albumin 2.4 L (3.4-5.0) g/dl Globulin 4.6 gm/dL Albumin/Globulin Ratio 0.5 L (1-2) Urine Color (Yellow) Urine Appearance (Clear) Urine pH (5.0-8.0) Ur Specific [place] (1.005-1.030) Urine Protein (Negative) Urine Glucose (UA) (Negative) Urine Ketones (Negative) Urine Occult Blood (Negative) Urine Nitrite (Negative) Urine Bilirubin (Negative) Urine Urobilinogen (0.2-1.0) Ur Leukocyte Esterase (Negative) U Hyaline Cast (Auto) (0-5) /lpf Urine RBC (0-5) /hpf Urine WBC (0-5) /hpf Ur Squamous Epith Cells (0-5) /hpf Urine Bacteria (FEW) /hpf Urine Mucus (FEW) /hpf SARS-CoV-2 RNA (FRANDY) (NEGATIVE) 01/13/21 01/13/21 01/13/21 Range/Units 00:30 01:20 01:20 WBC (4.23-9.07) K/mm3 RBC (4.63-6.08) M/mm3 Hgb (13.7-17.5) gm/dl Hct (40.1-51.0) % MCV (79.0-92.2) fl MCH (25.7-32.2) pg MCHC (32.2-35.5) g/dl RDW Std Deviation (35.1-43.9) fL Plt Count (163-337) K/mm3 MPV (9.4-12.3) fl Neutrophils % (Manual) (40-60) % Band Neutrophils % (0-10) % Lymphocytes % (Manual) (20-40) % Atypical Lymphs % % Monocytes % (Manual) (2-10) % Eosinophils % (Manual) (0.8-7.0) % Basophils % (Manual) (0.2-1.2) Toxic Granulation Platelet Estimate Polychromasia Anisocytosis Stomatocytes RBC Morph Comment PT (9.7-12.0) SECONDS INR Sodium (136-145) mEq/L Potassium (3.5-5.1) mEq/L Chloride (98-107) mEq/L Carbon Dioxide (21-32) mEq/L Anion Gap (5-15) BUN (7-18) mg/dL Creatinine (0.7-1.3) mg/dL Est Cr Clr Drug Dosing mL/min Estimated GFR (MDRD) (>60) mL/min BUN/Creatinine Ratio (14-18) Glucose (70-99) mg/dL Lactic Acid 1.4 (0.4-2.0) mmol/L Calcium (8.5-10.1) mg/dL Total Bilirubin (0.2-1.0) mg/dL AST (15-37) U/L ALT (16-63) U/L Alkaline Phosphatase (46-116) U/L C-Reactive Protein (<1.0) mg/dL Total Protein (6.4-8.2) g/dl Albumin (3.4-5.0) g/dl Globulin gm/dL Albumin/Globulin Ratio (1-2) Urine Color Yellow (Yellow) Urine Appearance Slt cloudy H (Clear) Urine pH 5.5 (5.0-8.0) Ur Specific [place] > or = 1.030 (1.005-1.030) Urine Protein 1+ H (Negative) Urine Glucose (UA) Negative (Negative) Urine Ketones Negative (Negative) Urine Occult Blood 2+ H (Negative) Urine Nitrite Negative (Negative) Urine Bilirubin Negative (Negative) Urine Urobilinogen 0.2 (0.2-1.0) Ur Leukocyte Esterase Negative (Negative) U Hyaline Cast (Auto) 10-20 H (0-5) /lpf Urine RBC 5-10 H (0-5) /hpf Urine WBC 0-5 (0-5) /hpf Ur Squamous Epith Cells 0-5 (0-5) /hpf Urine Bacteria Few (FEW) /hpf Urine Mucus Few (FEW) /hpf SARS-CoV-2 RNA (FRANDY) Negative (NEGATIVE) Meds: Medications Generic Name Dose Route Start Last Admin Trade Name Freq PRN Reason Stop Dose Admin Sodium Chloride 1,000 mls @ 150 mls/hr 01/13/21 02:30 01/13/21 02:38 Normal Saline IV 150 mls/hr ASDIRECTED GIFTY Administration Sodium Chloride 10 ml 01/13/21 00:18 01/13/21 00:29 Sodium Chloride 0.9% 10 Ml Syringe FLUSH 10 ml ASDIRECTED PRN Administration Keep Vein Open Discontinued Medications Generic Name Dose Route Start Last Admin Trade Name Gabriel PRN Reason Stop Dose Admin Sodium Chloride 1,000 mls @ 999 mls/hr 01/13/21 00:18 01/13/21 00:29 Normal Saline IV 01/13/21 01:18 999 mls/hr BOLUS ONE Administration Protocol - Re-Assessments/Exams Free Text/Narrative Re-Assessment/Exam: 01/13/21 00:21 The patient's rash appears to be a drug rash. He does not have a fever here in the ED, however, given the report of his fever, along with his tachycardia and tachypnea, he meets sepsis criteria, therefore I have ordered a sepsis bundle work-up, including numerous blood tests, 2 sets of blood cultures, a urinalysis by quick catheter, and a chest x-ray. Because he may need to be admitted to this hospital or an outside one, I have also ordered a swab for the SARS-CoV-2 virus. In the meantime, the patient will be given a 1 L bolus of IV fluid. 01/13/21 01:25 Portable chest radiograph reviewed. The cardiac silhouette is within normal limits. No pulmonary vascular congestion. No pleural effusions seen on this AP view. No focal infiltrate, although there is platelike atelectasis at the right base. A few air bronchograms are noted at the left base. No pneumothorax. Formal read per the Radiologist pending. 01/13/21 02:16 The patient's CBC is remarkable for leukocytosis of 24.99, but with 92% bandemia. He has thrombocytosis of 482, with remainder of his CBC being unrem arkable. His CMP is remarkable for a BUN/Cr elevated at 32/1.6, and modest hyperglycemia of 140. His AST/ALT are mildly elevated at 58/106, respectively, with remainder of his CMP being unremarkable. His lactic acid level is within normal limits at 1.4. His CRP is within normal limits at 0.7. His INR is within normal limits. His urinalysis is unremarkable. His swab for the SARS-CoV-2 virus is negative. Review of prior labs finds that on 01/11/2021, the patient's WBC count was 20.07, and his BUN/Cr was 28/1.1. The patient appears to have persistent leukocytosis not related to an infection, as his CRP is only 0.7. He may be somewhat intravascularly depleted, but he is not septic. The plan will be to keep him here in the ED overnight for gentle IV hydration, then return him to [facility] in the morning. 01/13/21 06:16 The patient has not developed a fever during this ED visit. He is still tachycardic at 112 bpm, but his BP is good at 129/79. We will discharge her back to [facility]. Departure - Departure Time of Disposition: 06:17 Disposition: Home, Self-Care 01 Condition: Good Clinical Impression: Intravascular volume depletion, Acute renal insufficiency, Tachycardia, Drug rash - Discharge Information *PRESCRIPTION DRUG MONITORING PROGRAM REVIEWED*: Not Applicable *COPY OF PRESCRIPTION DRUG MONITORING REPORT IN PATIENT ERNESTO: Not Applicable Referrals: Todd Perdue MD [Primary Care Provider] - Forms: ED Department Discharge Additional Instructions: Mr. Begum was seen in the emergency room after developing a fever and rash. No fever was found during his ER visit. Work-up in the ER included numerous blood tests, 2 sets of blood cultures, a urinalysis, a swab for the SARS-CoV-2 virus, and a chest x-ray. His work-up found his WBC count to be elevated at 24.99, but his CRP, a measure of inflammation, was within normal limits, and no source of infection was found. His elevated WBC count appears to be due to demargination or recent steroids. His kidney function was found to be somewhat impaired, indicating intravascular depletion. He was given IV fluid while in the ER. His rash appears to be a drug rash. It is unclear if the offending drug is one that he received while hospitalized, or one that he is currently on. Please contact the patient's PCP, Dr. Todd Perdue, to have him review the patient's medication list and decide if any medications need to be discontinued. If any other problems, please do not hesitate to return Mr. Begum to the ER. Sepsis Event Note (ED) - Evaluation Sepsis Screening Result: Possible Sepsis Risk - Focused Exam Vital Signs: Vital Signs Temp Pulse Resp BP Pulse Ox 01/13/21 03:52 117 H 121/78 91 L 01/13/21 02:00 156/93 H 01/13/21 01:45 138/87 01/13/21 00:04 37.4 C 130 H 26 H 144/95 H 91 L - My Orders Last 24 Hours: My Active Orders 01/13/21 00:18 Blood Pressure Mgt: Sepsis [RC] Q15MX2 Sodium Chloride 0.9% [Saline Flush] 10 ml FLUSH ASDIRECTED PRN Blood Culture x2 Reflex Set [OM.PC] Stat Saline Lock Insert [OM.PC] Stat 01/13/21 00:30 BLOOD CULTURE [MREF] Stat 01/13/21 00:40 BLOOD CULTURE [MREF] Stat 01/13/21 02:30 Sodium Chloride 0.9% [Normal Saline] 1,000 ml IV ASDIRECTED - Assessment/Plan Last 24 Hours: My Active Orders 01/13/21 00:18 Blood Pressure Mgt: Sepsis [RC] Q15MX2 Sodium Chloride 0.9% [Saline Flush] 10 ml FLUSH ASDIRECTED PRN Blood Culture x2 Reflex Set [OM.PC] Stat Saline Lock Insert [OM.PC] Stat 01/13/21 00:30 BLOOD CULTURE [MREF] Stat 01/13/21 00:40 BLOOD CULTURE [MREF] Stat 01/13/21 02:30 Sodium Chloride 0.9% [Normal Saline] 1,000 ml IV ASDIRECTED
[2021-01-13] MEDS ORDERED: Sodium Chloride 0.9% 1,000 ML IV SCH (02:30)
--- NOTE | 2021-01-13 06:11 | CR ---
Chest: Frontal view of the chest was obtained. Comparison: Prior chest x-ray on 01/04/21. Patchy increased density is seen within the left base as an interval change. Thick area of atelectasis is seen within the right lung base. Upper lungs are clear. Heart size and mediastinum are within normal limits. Mild degenerative spurring is noted within the spine. Impression: 1. Findings suspicious for mild area of pneumonia within the left lung base. 2. Thick area of atelectasis within the right lung base. Diagnostic code #3
[2021-01-13 06:41] VITALS: BP 130/75; PULSE 114
== END 2021-01-13 08:50 | disposition home or self-care (01) ==
LOC: JD.ED 23:35
DX: L27.0 Generalized skin eruption due to drugs and medicaments taken internally (principal); T39.1X5A Adverse effect of 4-Aminophenol derivatives, initial encounter; R00.0 Tachycardia, unspecified; N28.9 Disorder of kidney and ureter, unspecified; E86.9 Volume depletion, unspecified; K21.9 Gastro-esophageal reflux disease without esophagitis; E11.9 Type 2 diabetes mellitus without complications; G30.9 Alzheimer's disease, unspecified; F02.80 Dementia in other diseases classified elsewhere, unspecified severity, without behavioral disturbance, psychotic disturbance, mood disturbance, and anxiety; Z87.891 Personal history of nicotine dependence; Z79.899 Other long term (current) drug therapy; Z20.822 Contact with and (suspected) exposure to COVID-19
CPT/HCPCS: 36415; 71045; 71045-26; 80053; 81001; 83605; 85007; 85027; 85610; 86140; 87040; 99284-25; J7030; U0002